=== PATIENT | female | born 1950 | race Caucasian/White ===

== ENCOUNTER 2016-11-28 | Outpatient (CLI) | payer MEDICARE, OTHER | END 2016-11-28 08:12 | disposition short-term general hospital (02) | DX: R04.0 Epistaxis (principal) | CPT/HCPCS: A0170; A0425; A0427 ==

== ENCOUNTER 2019-05-30 | Emergency (ER) | payer MEDICARE, OTHER | END 2019-05-30 13:46 | disposition home or self-care (01) | DX: S01.81XA Laceration without foreign body of other part of head, initial encounter (principal); W01.190A Fall on same level from slipping, tripping and stumbling with subsequent striking against furniture, initial encounter; R03.0 Elevated blood-pressure reading, without diagnosis of hypertension | CPT/HCPCS: 12011; 90471 ==

== ENCOUNTER 2019-05-30 10:58 | Outpatient (CLI) | payer MEDICARE, OTHER | END 2019-05-30 10:59 | disposition critical access hospital (66) | LOC: EMS 10:58 | PROVIDERS: ATTEND Surgery | DX: S01.81XA Laceration without foreign body of other part of head, initial encounter (principal); W01.0XXA Fall on same level from slipping, tripping and stumbling without subsequent striking against object, initial encounter; Y93.89 Activity, other specified; Y92.009 Unspecified place in unspecified non-institutional (private) residence as the place of occurrence of the external cause | CPT/HCPCS: A0425; A0429 ==

== ENCOUNTER 2020-10-30 21:17 | Outpatient (CLI) | payer MEDICARE | END 2020-10-30 23:59 | disposition EMS.NT | LOC: EMS 21:17 | PROVIDERS: ATTEND Surgery | DX: R53.1 Weakness (principal) ==

== ENCOUNTER 2020-10-31 | Outpatient (CLI) | payer MEDICARE, OTHER | END 2020-10-31 11:50 | disposition critical access hospital (66) | CPT/HCPCS: A0425; A0427 ==

== ENCOUNTER 2020-10-31 12:42 | Emergency (ER) | payer MEDICARE ==
[2020-10-31] MEDS ORDERED: SODIUM CHLORIDE 0.9% 2,000 ML IV STA (13:10)
[2020-10-31] MEDS ORDERED: SODIUM CHLORIDE 0.9% 1,000 ML IV STA (13:10)
[2020-10-31] MEDS ORDERED: ACETAMINOPHEN 325 MG TABLET PO STA (13:17)
--- NOTE | 2020-10-31 13:20 | ED Physician Documentation ---
History of Present Illness - Stated complaint Stated Complaint: FEVER - Chief complaint Chief Complaint: Resp - History obtained from History obtained from: Patient, EMS - History of Present Illness Timing: How many days ago (3) Pain level max: 0 Pain level now: 0 - Additonal information Additional information: Patient is a 70-year-old female who presents to the emergency department complaining of feeling generally unwell for the past 3 days. Developed fevers today. She has been feeling weak and dehydrated. Some nausea, no vomiting. Occasional diarrhea. No cough. Has had chills and body aches. She had an appointment to be Covid tested yesterday, but she was too weak to go. Today she called the ambulance to bring her in. Patient has a past medical history of hypertension and anxiety. T-max 101. No urinary symptoms. No recent travel. No recent antibiotics. Review of Systems Ten Systems: 10 systems reviewed and negative Constitutional: reports: Fever, Chills Nose: denies: Rhinorrhea / runny nose, Congestion Throat: denies: Sore throat Respiratory: denies: Dyspnea, Cough GI: reports: Nausea, Diarrhea (mild). denies: Abdominal Pain, Vomiting, Hematemesis, Bloody / black stool : denies: Dysuria, Frequency, Hesitancy Skin: denies: Rash Musculoskeletal: denies: Neck pain, Back pain Neurologic: reports: Generalized weakness. 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 10/31/20 - Allergies Allergies/Adverse Reactions: Allergies Allergy/AdvReac Type Severity Reaction Status Date / Time No Known Drug Allergies Allergy Verified 05/30/19 11:52 - Living Situation Living Arrangement: reports: At home - Social History Does the pt smoke?: No Smoking Status: Never smoker - POLST Patient has POLST: No PD ED PE NORMAL - Vitals Vital signs reviewed: Yes - General General: Alert and oriented X 3, No acute distress, Well developed/nourished - HEENT HEENT: PERRL, Ears normal, Moist mucous membranes, Pharynx benign - Neck Neck: Supple, no meningeal sign - Cardiac Cardiac: RRR, No murmur, Strong equal pulses - Respiratory Respiratory: No respiratory distress, Other (Tachypneic) - Abdomen Abdomen: Soft, Non tender, Non distended - Back Back: No CVA TTP - Derm Derm: Warm and dry, No rash - Extremities Extremities: No edema, No calf tenderness / cord - Neuro Neuro: Alert and oriented X 3 - Psych Psych: Normal mood, Normal affect Results - Vitals Vitals: Vital Signs - 24 hr 10/31/20 10/31/20 10/31/20 12:45 13:23 14:16 Temperature 37.8 C Heart Rate 107 H 106 H 102 H Respiratory 30 H 17 31 H Rate Blood Pressure 140/73 H 122/96 H 142/84 H O2 Saturation 97 95 95 10/31/20 10/31/20 14:47 16:05 Temperature 37.0 C 36.8 C Heart Rate 94 87 Respiratory 22 23 Rate Blood Pressure 146/67 H 120/75 O2 Saturation 94 95 Oxygen O2 Source Room air - Labs Labs: Laboratory Tests 10/31/20 10/31/20 10/31/20 13:05 13:35 14:00 WBC 5.1 RBC 4.69 Hgb 13.7 Hct 40.0 MCV 85.3 MCH 29.2 MCHC 34.3 RDW 13.9 Plt Count 129 L MPV 10.0 Neut # (Auto) 3.7 Lymph # (Auto) 0.9 L [place] # (Auto) 0.5 Eos # (Auto) 0.0 Baso # (Auto) 0.0 Absolute Nucleated RBC 0.00 Nucleated RBC % 0.0 PT INR APTT Sodium Potassium Chloride Carbon Dioxide Anion Gap BUN Creatinine Estimated GFR (MDRD) Glucose Lactic Acid Calcium Total Bilirubin AST ALT Alkaline Phosphatase Total Protein Albumin Globulin Albumin/Globulin Ratio Lipase Urine Color YELLOW Urine Clarity CLEAR Urine pH 7.0 Ur Specific [place] <=1.005 Urine Protein NEGATIVE Urine Glucose (UA) NEGATIVE Urine Ketones 15 H Urine Occult Blood SMALL H Urine Nitrite NEGATIVE Urine Bilirubin NEGATIVE Urine Urobilinogen 0.2 (NORMAL) Ur Leukocyte Esterase NEGATIVE Urine RBC 0-5 Urine WBC 0-3 Ur Squamous Epith Cells FEW Squamous Urine Bacteria Few Ur Microscopic Review INDICATED Urine Culture Comments NOT INDICATED Nasal Adenovirus (PCR) NOT DETECTED Nasal B. parapertussis DNA (PCR) NOT DETECTED Nasal Coronavir 229E PCR NOT DETECTED Nasal Coronavir HKU1 PCR NOT DETECTED Nasal Coronavir NL63 PCR NOT DETECTED Nasal Coronavir OC43 PCR NOT DETECTED Nasal Enterovir/Rhinovir PCR NOT DETECTED Nasal Influenza B PCR NOT DETECTED Nasal Influenza A PCR NOT DETECTED Nasal Parainfluen 1 PCR NOT DETECTED Nasal Parainfluen 2 PCR NOT DETECTED Nasal Parainfluen 3 PCR NOT DETECTED Nasal Parainfluen 4 PCR NOT DETECTED Nasal RSV (PCR) NOT DETECTED Nasal B.pertussis DNA PCR NOT DETECTED Nasal C.pneumoniae (PCR) NOT DETECTED Avery Human Metapneumo PCR NOT DETECTED Nasal M.pneumoniae (PCR) NOT DETECTED Nasal SARS-CoV-2 (PCR) NOT DETECTED 10/31/20 10/31/20 10/31/20 14:00 14:00 14:00 WBC RBC Hgb Hct MCV MCH MCHC RDW Plt Count MPV Neut # (Auto) Lymph # (Auto) [place] # (Auto) Eos # (Auto) Baso # (Auto) Absolute Nucleated RBC Nucleated RBC % PT 14.1 H INR 1.3 H APTT 22.0 L Sodium 134 L Potassium 2.8 L Chloride 96 L Carbon Dioxide 23 Anion Gap 15.0 H BUN 11 Creatinine 0.6 Estimated GFR (MDRD) 99 Glucose 102 H Lactic Acid 1.3 Calcium 8.0 L Total Bilirubin 0.7 AST 35 ALT 26 Alkaline Phosphatase 48 Total Protein 6.4 L Albumin 3.3 Globulin 3.1 Albumin/Globulin Ratio 1.1 Lipase 75 H Urine Color Urine Clarity Urine pH Ur Specific [place] Urine Protein Urine Glucose (UA) Urine Ketones Urine Occult Blood Urine Nitrite Urine Bilirubin Urine Urobilinogen Ur Leukocyte Esterase Urine RBC Urine WBC Ur Squamous Epith Cells Urine Bacteria Ur Microscopic Review Urine Culture Comments Nasal Adenovirus (PCR) Nasal B. parapertussis DNA (PCR) Nasal Coronavir 229E PCR Nasal Coronavir HKU1 PCR Nasal Coronavir NL63 PCR Nasal Coronavir OC43 PCR Nasal Enterovir/Rhinovir PCR Nasal Influenza B PCR Nasal Influenza A PCR Nasal Parainfluen 1 PCR Nasal Parainfluen 2 PCR Nasal Parainfluen 3 PCR Nasal Parainfluen 4 PCR Nasal RSV (PCR) Nasal B.pertussis DNA PCR Nasal C.pneumoniae (PCR) Avery Human Metapneumo PCR Nasal M.pneumoniae (PCR) Nasal SARS-CoV-2 (PCR) - Rads (name of study) Chest x-ray Radiology: Prelim report reviewed, EMP read contemporaneously, See rad report (Bilateral pneumonia) PD MEDICAL DECISION MAKING - ED course Complexity details: reviewed results, re-evaluated patient, considered differential, d/w patient ED course: Patient feels much better after IV fluids, IV antibiotics and potassium replacement. Tolerating p.o. without difficulty. Heart rate returned to normal. She has bilateral pneumonia on chest x-ray. Given Rocephin and azithromycin. Will place on cefdinir and doxycycline for home. Patient is well-appearing, nontoxic. Afebrile. No hypoxia. No respiratory distress. No evidence of sepsis. Covid negative. Patient counseled regarding signs and symptoms for which I believe and urgent re-evaluation would be necessary. Patient with good understanding of and agreement to plan and is comfortable going home at this time This document was made in part using voice recognition software. While efforts are made to proofread this document, sound alike and grammatical errors may occur. Departure - Departure Disposition: 01 Home, Self Care Clinical Impression: Dehydration, Hypokalemia Pneumonia Qualifiers: Pneumonia type: due to unspecified organism Laterality: bilateral Lung location: lower lobe of lung Qualified Code(s): J18.9 - Pneumonia, unspecified organism Condition: Good Instructions: ED Pneumonia Adult Follow-Up: your,doctor in 1 week [Other] Prescriptions: Cefdinir 300 mg PO BID #20 capsule Doxycycline Hyclate 100 mg PO BID #20 tablet. Comments: Take all antibiotics until gone. Follow-up with your doctor for further care. Return if you worsen. You should have your potassium rechecked next week with your doctor.
[2020-10-31 13:36] LABS: BILIRUBIN,URINE NEGATIVE (NEGATIVE); GLUCOSE, URINE (UA) NEGATIVE (NEGATIVE); KETONES,URINE (UA) 15 mg/dL (NEGATIVE); LEUKOCYTE ESTERASE, URINE NEGATIVE (NEGATIVE); NITRITE,URINE NEGATIVE (NEGATIVE); OCCULT BLOOD,URINE SMALL (NEGATIVE); PROTEIN,URINE NEGATIVE (NEGATIVE); UROBILINOGEN,URINE 0.2 (NORMAL) E.U./dL (NORMAL)
[2020-10-31 13:43] LABS: CLARITY,URINE CLEAR (CLEAR)
[2020-10-31 13:44] LABS: BACTERIA,URINE Few /HPF (None Seen); RBC,URINE 0-5 /HPF (0-5); SQUAMOUS EPITHELIAL CELL,UR FEW Squamous (<= Few)
--- NOTE | 2020-10-31 14:09 | XRAY Report ---
PROCEDURE: Chest 1 View X-Ray INDICATIONS: fever TECHNIQUE: One view of the chest was acquired. COMPARISON: None. FINDINGS: Surgical changes and devices: None. Lungs and pleura: Infiltrates in the right lower lung zone and left lower lung zone suspicious for pn eumonia. No pleural effusions or pneumothorax. Mediastinum: Mediastinal contours appear normal. Heart size is normal. Bones and chest wall: No suspicious bony lesions. Overlying soft tissues appear unremarkable. IMPRESSION: Bilateral lower lobe pneumonia, right greater than left. Reviewed by: Geneva Diaz MD on 10/31/2020 2:08 PM PST Approved by: Geneva Diaz MD on 10/31/2020 2:08 PM PST Station ID: [id number]
[2020-10-31 14:12] LABS: BASOPHILS % (AUTO) 0.2 %; HGB - HEMOGLOBIN 13.7 g/dL (12.0-16.0); LYMPHOCYTES # (AUTO) 0.9 10^3/uL (1.5-3.5); LYMPHOCYTES % (AUTO) 17.3 %; MEAN CORPUSCULAR HEMOGLOBIN 29.2 pg (27.0-31.0); MEAN CORPUSCULAR HGB CONC 34.3 g/dL (32.0-36.0); MEAN CORPUSCULAR VOLUME 85.3 fL (81.0-99.0); MONOCYTES # (AUTO) 0.5 10^3/uL (0.0-1.0); MONOCYTES % (AUTO) 10.2 %; NEUTROPHILS # (AUTO) 3.7 10^3/uL (1.5-6.6); NEUTROPHILS % (AUTO) 71.9 %; PLT - PLATELET COUNT 129 10^3/uL (130-450); RED BLOOD COUNT 4.69 10^6/uL (4.20-5.40); RED CELL DISTRIBUTION WIDTH 13.9 % (12.0-15.0); WHITE BLOOD COUNT 5.1 x10^3/uL (4.8-10.8)
[2020-10-31 14:16] LABS: INR 1.3 (0.8-1.2); PT - PROTHROMBIN TIME 14.1 secs (9.9-12.6)
[2020-10-31 14:24] LABS: ALBUMIN 3.3 g/dL (3.2-5.5); ALBUMIN/GLOBULIN RATIO 1.1 (1.0-2.2); BILIRUBIN,TOTAL 0.7 mg/dL (0.2-1.0); CREATININE 0.6 mg/dL (0.4-1.0); TOTAL PROTEIN 6.4 g/dL (6.7-8.2)
[2020-10-31 14:34] LABS: C. PNEUMONIAE- RESP PCR PANEL NOT DETECTED
[2020-10-31] MEDS ORDERED: cefTRIAXone 1 GM VIAL IVP STA (14:41)
[2020-10-31] MEDS ORDERED: AZITHROMYCIN INJ 500 MG in SODIUM CHLORIDE 0.9% 250 ML IV STA (14:42)
[2020-10-31] MEDS ORDERED: POTASSIUM CHLORIDE 20 MEQ TABLET PO STA (14:53)
[2020-10-31 16:46] VITALS: BP 132/74
== END 2020-10-31 18:00 | disposition home or self-care (01) ==
LOC: EDUNIT# → ED 12:42
DX: J18.9 Pneumonia, unspecified organism (principal); E86.0 Dehydration; E87.6 Hypokalemia; I10 Essential (primary) hypertension; Z20.828 Contact with and (suspected) exposure to other viral communicable diseases
CPT/HCPCS: 71045; 80053; 81001; 83605; 83690; 85025; 85610; 85730; 87040; 87631; 96365; 96375; 99284; A9270; 0202U; 81003; 87086

== ENCOUNTER 2020-11-13 09:34 | Outpatient (CLI) | payer MEDICARE | END 2020-11-13 09:35 | disposition critical access hospital (66) | LOC: EMS 09:34 | PROVIDERS: ATTEND Surgery | DX: R06.02 Shortness of breath (principal) | CPT/HCPCS: A0425; A0427 ==

== ENCOUNTER 2020-11-13 10:22 | Emergency (ER) | payer MEDICARE ==
[2020-11-13] MEDS ORDERED: SODIUM CHLORIDE 0.9% 1,000 ML IV STA (11:06)
[2020-11-13] MEDS ORDERED: ALBUTEROL 1 PUFF INH STA (11:06)
--- NOTE | 2020-11-13 11:10 | ED Physician Documentation ---
History of Present Illness - Stated complaint Stated Complaint: SOA - Chief complaint Chief Complaint: Resp - History obtained from History obtained from: Patient - History of Present Illness Timing: Today Pain level max: 0 Pain level now: 0 - Additonal information Additional information: 70-year-old female recently diagnosed with pneumonia. Has taken all of her antibiotics and is feeling better, but started having more difficulty breathing over the past few days. She states that her tested positive for Covid and is currently in the ICU. She states with exertion, her pulse oximeter drops to 85-88 on room air. She states she has 97 to 99% if she is in bed. No fevers. Cough is mostly resolved. 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 - Present Medications Home Medications: Ambulatory Orders Medication Instructions Recorded Confirmed HYDROcod/ACETAM 5/325 [[place] 5/325] 1 - 2 ea PO Q6H PRN #15 tablet 09/02/16 11/13/20 Knee Scooter 1 unit TD ONCE #1 09/02/16 11/13/20 Albuterol Sulf [Ventolin Hfa 1 - 2 puffs INH Q4HR PRN #1 inhaler 11/13/20 Inhaler] levoFLOXacin [Levaquin] 750 mg PO DAILY #12 tablet 11/13/20 - Allergies Allergies/Adverse Reactions: Allergies Allergy/AdvReac Type Severity Reaction Status Date / Time No Known Drug Allergies Allergy Verified 05/30/19 11:52 - Social History Does the pt smoke?: No Smoking Status: Never smoker Does the pt drink ETOH?: Yes Does the pt have substance abuse?: No - Immunizations Immunizations are current?: Yes - POLST Patient has POLST: No PD ED PE NORMAL - Vitals Vital signs reviewed: Yes - General General: Alert and oriented X 3, No acute distress, Well developed/nourished - HEENT HEENT: Moist mucous membranes - Neck Neck: Supple, no meningeal sign - Cardiac Cardiac: RRR - Respiratory Respiratory: No respiratory distress, Other (Mild diminished breath sounds bilaterally. Mild wheezing.) - Abdomen Abdomen: Soft, Non tender, Non distended - Back Back: No CVA TTP, No spinal TTP - Derm Derm: Warm and dry, No rash - Extremities Extremities: No edema - Neuro Neuro: Alert and oriented X 3, proofreader 2-12 intact, No motor deficit, No sensory deficit, Normal speech - Psych Psych: Normal mood, Normal affect Results - Vitals Vitals: Vital Signs - 24 hr 11/13/20 11/13/20 11/13/20 10:32 11:02 11:35 Temperature 36.9 C 36.7 C Heart Rate 112 H 110 H 108 H Respiratory 23 39 H 16 Rate Blood Pressure 129/62 138/63 H O2 Saturation 94 95 11/13/20 11/13/20 12:08 13:37 Temperature 36.8 C Heart Rate 105 H 90 Respiratory 18 18 Rate Blood Pressure 139/66 H 133/83 H O2 Saturation 94 94 Oxygen O2 Source Room air - Labs Labs: Laboratory Tests 11/13/20 11/13/20 11/13/20 10:40 10:40 10:40 WBC 12.2 H RBC 4.68 Hgb 13.3 Hct 40.4 MCV 86.3 MCH 28.4 MCHC 32.9 RDW 14.2 Plt Count 56 L MPV 11.0 H Neut # (Auto) 9.1 H Lymph # (Auto) 1.5 [place] # (Auto) 1.5 H Eos # (Auto) 0.0 Baso # (Auto) 0.1 Absolute Nucleated RBC 0.00 Nucleated RBC % 0.0 Sodium 138 Potassium 3.4 L Chloride 99 L Carbon Dioxide 28 Anion Gap 11.0 BUN 10 Creatinine 0.6 Estimated GFR (MDRD) 99 Glucose 111 H Calcium 8.4 L Total Bilirubin 0.8 AST 24 ALT 27 Alkaline Phosphatase 51 Total Protein 6.5 L Albumin 2.8 L Globulin 3.7 Albumin/Globulin Ratio 0.8 L Nasal Adenovirus (PCR) NOT DETECTED Nasal B. parapertussis DNA (PCR) NOT DETECTED Nasal Coronavir 229E PCR NOT DETECTED Nasal Coronavir HKU1 PCR NOT DETECTED Nasal Coronavir NL63 PCR NOT DETECTED Nasal Coronavir OC43 PCR NOT DETECTED Nasal Enterovir/Rhinovir PCR NOT DETECTED Nasal Influenza B PCR NOT DETECTED Nasal Influenza A PCR NOT DETECTED Nasal Parainfluen 1 PCR NOT DETECTED Nasal Parainfluen 2 PCR NOT DETECTED Nasal Parainfluen 3 PCR NOT DETECTED Nasal Parainfluen 4 PCR NOT DETECTED Nasal RSV (PCR) NOT DETECTED Nasal B.pertussis DNA PCR NOT DETECTED Nasal C.pneumoniae (PCR) NOT DETECTED Avery Human Metapneumo PCR NOT DETECTED Nasal M.pneumoniae (PCR) NOT DETECTED Nasal SARS-CoV-2 (PCR) NOT DETECTED - Rads (name of study) Chest x-ray Radiology: Prelim report reviewed, EMP read contemporaneously, See rad report (Slight improvement in right greater left basilar airspace opacities. ) PD MEDICAL DECISION MAKING - ED course Complexity details: reviewed results, re-evaluated patient, considered differential, d/w patient ED course: Patient with persistent pneumonia. Negative Covid testing. We will change her to Levaquin. Had been on cefdinir and doxycycline together. Discussed risks and benefits of fluoroquinolones. Patient accepts these risks. Patient is well-appearing, nontoxic. Afebrile. No hypoxia. No respiratory distress. Feels better with albuterol use as well. We will prescribe this for home. Patient counseled regarding signs and symptoms for which I believe and urgent re-evaluation would be necessary. Patient with good understanding of and agreement to plan and is comfortable going home at this time This document was made in part using voice recognition software. While efforts are made to proofread this document, sound alike and grammatical errors may occur. Departure - Departure Disposition: 01 Home, Self Care Clinical Impression: Pneumonia Qualifiers: Pneumonia type: due to unspecified organism Laterality: bilateral Lung location: lower lobe of lung Qualified Code(s): J18.9 - Pneumonia, unspecified organism Condition: Good Instructions: ED Pneumonia Adult Follow-Up: your,doctor in 1 week [Other] Prescriptions: Albuterol Sulf [Ventolin Hfa Inhaler] 1 - 2 puffs INH Q4HR PRN #1 inhaler PRN Reason: Shortness Of Air/Wheezing levoFLOXacin [Levaquin] 750 mg PO DAILY #12 tablet Comments: You were given the first dose of Levaquin today. Start the remaining doses tomorrow. You will take for a total of 5 days. Return if you worsen. Discharge Date/Time: 11/13/20 13:58
[2020-11-13 11:14] LABS: BASOPHILS # (AUTO) 0.1 10^3/uL (0.0-0.1); BASOPHILS % (AUTO) 0.4 %; EOSINOPHILS % (AUTO) 0.3 %; HGB - HEMOGLOBIN 13.3 g/dL (12.0-16.0); LYMPHOCYTES # (AUTO) 1.5 10^3/uL (1.5-3.5); LYMPHOCYTES % (AUTO) 12.3 %; MEAN CORPUSCULAR HEMOGLOBIN 28.4 pg (27.0-31.0); MEAN CORPUSCULAR HGB CONC 32.9 g/dL (32.0-36.0); MEAN CORPUSCULAR VOLUME 86.3 fL (81.0-99.0); MONOCYTES # (AUTO) 1.5 10^3/uL (0.0-1.0); MONOCYTES % (AUTO) 11.8 %; NEUTROPHILS # (AUTO) 9.1 10^3/uL (1.5-6.6); NEUTROPHILS % (AUTO) 74.8 %; PLT - PLATELET COUNT 56 10^3/uL (130-450); RED BLOOD COUNT 4.68 10^6/uL (4.20-5.40); RED CELL DISTRIBUTION WIDTH 14.2 % (12.0-15.0); WHITE BLOOD COUNT 12.2 x10^3/uL (4.8-10.8)
[2020-11-13 11:23] LABS: ALBUMIN 2.8 g/dL (3.2-5.5); ALBUMIN/GLOBULIN RATIO 0.8 (1.0-2.2); BILIRUBIN,TOTAL 0.8 mg/dL (0.2-1.0); CALCIUM 8.4 mg/dL (8.5-10.3); CREATININE 0.6 mg/dL (0.4-1.0); TOTAL PROTEIN 6.5 g/dL (6.7-8.2)
[2020-11-13 12:00] LABS: C. PNEUMONIAE- RESP PCR PANEL NOT DETECTED
--- NOTE | 2020-11-13 12:46 | XRAY Report ---
PROCEDURE: Chest 1 View X-Ray INDICATIONS: Cough, recent pneumonia TECHNIQUE: One view of the chest was acquired. COMPARISON: 10/31/2020 FINDINGS: Surgical changes and devices: None. Lungs and pleura: Slightly improved mixed groundglass and consolidative airspace opacities in the rig ht greater than left lung bases. No visible pleural effusion. No pneumothorax. Mediastinum: Mediastinal contours appear normal. Heart size is normal. Bones and chest wall: No suspicious bony lesions. Overlying soft tissues appear unremarkable. IMPRESSION: Slight improvement in right greater left basilar airspace opacities. Reviewed by: Moses Nazario MD on 11/13/2020 12:45 PM PST Approved by: Moses Nazario MD on 11/13/2020 12:45 PM PST Station ID: [id number]
[2020-11-13] MEDS ORDERED: levoFLOXacin 250 MG TABLET PO STA (12:50)
[2020-11-13 13:38] VITALS: BP 133/83
== END 2020-11-13 13:58 | disposition home or self-care (01) ==
LOC: EDUNIT# → ED 10:22
DX: J18.9 Pneumonia, unspecified organism (principal); Z20.822 Contact with and (suspected) exposure to COVID-19; I10 Essential (primary) hypertension
CPT/HCPCS: 36415; 71045; 80053; 85025; 87631; 94640; 94664; 99284; A9270; 0202U

== ENCOUNTER 2020-12-09 08:00 | Outpatient (CLI) | payer MEDICARE, OTHER ==
--- NOTE | 2020-12-09 16:58 | XRAY Report ---
PROCEDURE: Ankle 3 View LT INDICATIONS: ANKLE PAIN, LEFT TECHNIQUE: 3 views of the ankle were acquired. COMPARISON: 09/02/2016 plain film examination FINDINGS: Bones: No fractures or dislocations. Ankle mortise is normally aligned. No suspicious bony lesions . ORIF of the distal tibia and fibula. Soft tissues: No tibiotalar joint effusion. Achilles tendon appears normal. IMPRESSION: Post surgical sequelae. No acute fracture. No osseous lesion. If symptoms and/or clinica l suspicion for pathology continue, further assessment with repeat plain films, or advanced imaging ( e.g., CT or bone scan) is recommended for further assessment. Reviewed by: Nelia Boss MD on 12/09/2020 4:57 PM PST Approved by: Nelia Boss MD on 12/09/2020 4:57 PM PST Station ID: [id number]
--- NOTE | 2020-12-09 16:59 | XRAY Report ---
PROCEDURE: Foot 3 View LT INDICATIONS: LEFT FOOT PAIN TECHNIQUE: 3 views of the foot were acquired. COMPARISON: 09/02/2016 plain film. FINDINGS: Bones: No fractures or dislocations. No suspicious bony lesions. ORIF of the medial and lateral ma lleoli. Soft tissues: No tibiotalar joint effusion. Achilles tendon appears normal. IMPRESSION: Postsurgical sequelae. No acute fracture. No osseous lesion. If symptoms and/or clinical suspicion fo r pathology continue, further assessment with repeat plain films, or advanced imaging (e.g., CT, MRI, or bone scan) is recommended for further assessment. Reviewed by: Nelia Boss MD on 12/09/2020 4:57 PM PST Approved by: Nelia Boss MD on 12/09/2020 4:57 PM PST Station ID: [id number]
== END 2020-12-09 23:59 | disposition home or self-care (01) ==
LOC: DI.S 08:00
PROVIDERS: ATTEND Physician Assistant
DX: M25.572 Pain in left ankle and joints of left foot (principal); M79.672 Pain in left foot

== ENCOUNTER 2020-12-09 17:36 | Emergency (ER) | payer MEDICARE, OTHER ==
[2020-12-09] MEDS ORDERED: AMPICILLIN/SULBACTAM 3 GM in SODIUM CHLORIDE 0.9% MINIBAG 100 ML IV STA (18:47)
[2020-12-09] MEDS ORDERED: VANCOMYCIN INJ 1 GM in SODIUM CHLORIDE 0.9% 500 ML IV STA (18:47)
[2020-12-09] MEDS ORDERED: VANCOMYCIN INJ 1.75 GM in SODIUM CHLORIDE 0.9% 500 ML IV STA (18:55)
[2020-12-09 19:00] LABS: BASOPHILS # (AUTO) 0.1 10^3/uL (0.0-0.1); EOSINOPHILS # (AUTO) 0.3 10^3/uL (0.0-0.7); EOSINOPHILS % (AUTO) 3.6 %; HGB - HEMOGLOBIN 14.1 g/dL (12.0-16.0); LYMPHOCYTES # (AUTO) 2.4 10^3/uL (1.5-3.5); LYMPHOCYTES % (AUTO) 32.7 %; MEAN CORPUSCULAR HEMOGLOBIN 28.3 pg (27.0-31.0); MEAN CORPUSCULAR HGB CONC 31.2 g/dL (32.0-36.0); MEAN CORPUSCULAR VOLUME 90.6 fL (81.0-99.0); MEAN PLATELET VOLUME 9.3 fL (7.9-10.8); MONOCYTES % (AUTO) 13.4 %; NEUTROPHILS # (AUTO) 3.6 10^3/uL (1.5-6.6); NEUTROPHILS % (AUTO) 49.2 %; PLT - PLATELET COUNT 203 10^3/uL (130-450); RED BLOOD COUNT 4.99 10^6/uL (4.20-5.40); RED CELL DISTRIBUTION WIDTH 15.4 % (12.0-15.0); WHITE BLOOD COUNT 7.3 x10^3/uL (4.8-10.8)
[2020-12-09 19:18] LABS: ALBUMIN/GLOBULIN RATIO 1.1 (1.0-2.2); ALKALINE PHOSPHATASE 68 IU/L (42-121); ALT ALANINE AMINOTRANSFERASE 27 IU/L (10-60); AST ASPARTATE AMINOTRANSFERASE 31 IU/L (10-42); BILIRUBIN,TOTAL 0.6 mg/dL (0.2-1.0); BUN - BLOOD UREA NITROGEN 9 mg/dL (6-20); CARBON DIOXIDE - CO2 28 mmol/L (21-32); CHLORIDE 103 mmol/L (101-111); CREATININE 0.6 mg/dL (0.4-1.0); GLUCOSE 98 mg/dL (70-100); TOTAL PROTEIN 7.5 g/dL (6.7-8.2)
[2020-12-09 19:19] LABS: CRP - C-REACTIVE PROTEIN < 1.0 mg/dL (0-1.0)
--- NOTE | 2020-12-09 19:36 | Ultrasound Report ---
PROCEDURE: Duplex Ext Veins Left INDICATIONS: LLE swelling TECHNIQUE: Real-time imaging, as well as color and pulse Doppler interrogation, were performed of the lower extr emity deep veins from the inguinal ligament to the popliteal fossa. COMPARISON: None. FINDINGS: Extensive venous thrombosis seen extending from distal left common femoral vein, left superficial fem oral vein to left popliteal vein with intraluminal filling defects and reduced flow. Significant lowe r leg edema is seen. IMPRESSION: Extensive nonocclusive venous thrombosis throughout visualized left lower extremity vein s as above. Significant lower leg edema. Reviewed by: Vernon Rose MD on 12/09/2020 7:34 PM PST Approved by: Vernon Rose MD on 12/09/2020 7:34 PM PST Station ID: [id number]
[2020-12-09] MEDS ORDERED: RIVAROXABAN 15 MG TABLET PO STA (19:57)
--- NOTE | 2020-12-09 19:59 | ED Physician Documentation ---
History of Present Illness - Stated complaint Stated Complaint: LEFT LEG PX - Chief complaint Chief Complaint: Ext Problem - History obtained from History obtained from: Patient - History of Present Illness Timing: Today Pain level max: 6 Pain level now: 4 - Additonal information Additional information: Patient has had left lower extremity swelling for the past several days. Worse with movement, better with rest. She recently has been treated for pneumonia. Seen at the walk-in clinic today and sent here for ultrasound for possible DVT. Patient has had relative immobilization due to her multiple episodes of pneumonia and possible Covid. Has a history of a fracture to the left ankle with hardware in place as well. 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 - Present Medications Home Medications: Ambulatory Orders Medication Instructions Recorded Confirmed HYDROcod/ACETAM 5/325 [[place] 5/325] 1 - 2 ea PO Q6H PRN #15 tablet 09/02/16 11/13/20 Knee Scooter 1 unit TD ONCE #1 09/02/16 11/13/20 Albuterol Sulf [Ventolin Hfa 1 - 2 puffs INH Q4HR PRN #1 inhaler 11/13/20 Inhaler] levoFLOXacin [Levaquin] 750 mg PO DAILY #12 tablet 11/13/20 Rivaroxaban [Xarelto] 15 mg PO BID #42 12/09/20 Sulfamethox/Trimeth 800/160 1 each PO BID #20 tab 12/09/20 [Bactrim Ds 800/160] cephALEXin [Keflex] 500 mg PO Q6H #40 cap 12/09/20 - Allergies Allergies/Adverse Reactions: Allergies Allergy/AdvReac Type Severity Reaction Status Date / Time No Known Drug Allergies Allergy Verified 12/09/20 17:42 - Social History Does the pt smoke?: No Smoking Status: Never smoker Does the pt drink ETOH?: Yes Does the pt have substance abuse?: No - Immunizations Immunizations are current?: Yes - POLST Patient has POLST: No PD ED PE NORMAL - Vitals Vital signs reviewed: Yes - General General: Alert and oriented X 3, No acute distress - HEENT HEENT: Moist mucous membranes - Neck Neck: Supple, no meningeal sign - Cardiac Cardiac: RRR - Respiratory Respiratory: No respiratory distress, Clear bilaterally - Abdomen Abdomen: Soft, Non tender, Non distended - Derm Derm: Warm and dry - Extremities Extremities: Other (Remedy with erythema, warmth, tenderness from the mid lora down to the ankle. This is nearly circumferential. Moderate swelling. Neurovascularly intact.) - Neuro Neuro: Alert and oriented X 3 Results - Vitals Vitals: Vital Signs - 24 hr 12/09/20 12/09/20 12/09/20 17:42 19:41 20:32 Temperature 37.1 C 36.9 C 36.2 C L Heart Rate 98 75 85 Respiratory 18 15 16 Rate Blood Pressure 157/75 H 136/74 H 152/75 H O2 Saturation 97 98 97 Oxygen O2 Source Room air - Labs Labs: Laboratory Tests 12/09/20 12/09/20 12/09/20 18:54 18:54 18:54 WBC 7.3 RBC 4.99 Hgb 14.1 Hct 45.2 MCV 90.6 MCH 28.3 MCHC 31.2 L RDW 15.4 H Plt Count 203 MPV 9.3 Neut # (Auto) 3.6 Lymph # (Auto) 2.4 [place] # (Auto) 1.0 Eos # (Auto) 0.3 Baso # (Auto) 0.1 Absolute Nucleated RBC 0.00 Nucleated RBC % 0.0 ESR 8 Sodium 142 Potassium 3.8 Chloride 103 Carbon Dioxide 28 Anion Gap 11.0 BUN 9 Creatinine 0.6 Estimated GFR (MDRD) 99 Glucose 98 Calcium 9.0 Total Bilirubin 0.6 AST 31 ALT 27 Alkaline Phosphatase 68 C-Reactive Protein < 1.0 Total Protein 7.5 Albumin 4.0 Globulin 3.5 Albumin/Globulin Ratio 1.1 - Rads (name of study) duplex US LLE Radiology: Prelim report reviewed, EMP read contemporaneously, See rad report PD MEDICAL DECISION MAKING - ED course Complexity details: reviewed results, re-evaluated patient, considered differential, d/w patient ED course: X-rays were performed at the walk-in clinic prior to arrival. These do not show any acute abnormalities. Does have significant hardware in place. Duplex ultrasound here reveals an extensive left lower extremity DVT, nonocclusive. Discussed the risks and benefits of various anticoagulants including warfarin and Xarelto with the patient. She elects to take Xarelto. No evidence of PE. Given the significant hardware in her ankle, we will also place her on antibiotics for possible cellulitis. Patient is well-appearing, nontoxic. Afebrile. Patient counseled regarding signs and symptoms for which I believe and urgent re-evaluation would be necessary. Patient with good understanding of and agreement to plan and is comfortable going home at this time This document was made in part using voice recognition software. While efforts are made to proofread this document, sound alike and grammatical errors may occur. IMPRESSION: Extensive nonocclusive venous thrombosis throughout visualized left lower extremity veins as above. Significant lower leg edema. Departure - Departure Disposition: 01 Home, Self Care Clinical Impression: Cellulitis Qualifiers: Site of cellulitis: extremity Site of cellulitis of extremity: lower extremity Laterality: left Qualified Code(s): L03.116 - Cellulitis of left lower limb DVT (deep venous thrombosis) Qualifiers: DVT location: lower extremity Affected thrombotic vein of extremity: unspecified vein of extremity Chronicity: acute Laterality: left Qualified Code(s): I82.402 - Acute embolism and thrombosis of unspecified deep veins of left lower extremity Condition: Good Instructions: ED Infec Skin Cellulitis, ED DVT Follow-Up: Ilsa Tavares ARNP [Primary Care Provider] - Within 1 week Prescriptions: Sulfamethox/Trimeth 800/160 [Bactrim Ds 800/160] 1 each PO BID #20 tab cephALEXin [Keflex] 500 mg PO Q6H #40 cap Rivaroxaban [Xarelto] 15 mg PO BID #42 Comments: Take all antibiotics until gone. Return if you worsen. You do have a DVT in your left lower extremity. You need to stay on Xarelto. For the first 21 days, you will be on 15 mg by mouth twice daily. After that your doctor will transition you to 20 mg daily for the duration of treatment. You should have a repeat ultrasound as well to check on the progression of the DVT. Notify your doctor or return to the emergency department for any bleeding. If you fall and strike your head, you need to be seen right away in the emergency department. Discharge Date/Time: 12/09/20 20:33
[2020-12-09 20:34] VITALS: BP 152/75
== END 2020-12-09 20:33 | disposition home or self-care (01) ==
LOC: ED 17:36
DX: I82.412 Acute embolism and thrombosis of left femoral vein (principal); I82.432 Acute embolism and thrombosis of left popliteal vein; L03.116 Cellulitis of left lower limb; I10 Essential (primary) hypertension; M79.672 Pain in left foot; M25.572 Pain in left ankle and joints of left foot
CPT/HCPCS: 36415; 73610; 73630; 80053; 85025; 85651; 86140; 93971; 96365; 99284; A9270; J3370

== ENCOUNTER 2020-12-10 11:47 | Outpatient (CLI) | payer MEDICARE, OTHER ==
[2020-12-10 16:59] LABS: BUN - BLOOD UREA NITROGEN 8 mg/dL (6-20); CALCIUM 8.8 mg/dL (8.5-10.3); CARBON DIOXIDE - CO2 25 mmol/L (21-32); CHLORIDE 104 mmol/L (101-111); CHOL/HDL RATIO 3.7 (<4.4); CHOLESTEROL 157 mg/dL; CREATININE 0.6 mg/dL (0.4-1.0); GLUCOSE 94 mg/dL (70-100); HDL CHOLESTEROL 42 mg/dL; LDL CHOLESTEROL,CALCULATED 91 mg/dL; LDL/HDL RATIO 2.2 (<4.4); VLDL CHOLESTEROL 24 mg/dL
[2020-12-10 20:11] LABS: HEMOGLOBIN A1c% 5.4 % (4.27-6.07)
== END 2020-12-10 11:48 | disposition home or self-care (01) ==
LOC: LAB.S 11:47
PROVIDERS: ATTEND Nurse Practitioner
DX: Z01.84 Encounter for antibody response examination (principal); J98.8 Other specified respiratory disorders; B97.89 Other viral agents as the cause of diseases classified elsewhere; Z87.01 Personal history of pneumonia (recurrent); I10 Essential (primary) hypertension; F33.42 Major depressive disorder, recurrent, in full remission; Z83.3 Family history of diabetes mellitus; E87.6 Hypokalemia; E86.0 Dehydration
CPT/HCPCS: 36415; 80048; 80061; 83036; 83721; 84443; 86769

== ENCOUNTER 2021-06-08 08:00 | Outpatient (CLI) | payer MEDICARE, OTHER ==
[2021-06-08 20:06] LABS: BASOPHILS # (AUTO) 0.1 10^3/uL (0.0-0.1); BASOPHILS % (AUTO) 0.7 %; EOSINOPHILS # (AUTO) 0.4 10^3/uL (0.0-0.7); HGB - HEMOGLOBIN 13.8 g/dL (12.0-16.0); LYMPHOCYTES # (AUTO) 2.3 10^3/uL (1.5-3.5); MEAN CORPUSCULAR HEMOGLOBIN 28.2 pg (27.0-31.0); MEAN CORPUSCULAR HGB CONC 31.4 g/dL (32.0-36.0); MEAN CORPUSCULAR VOLUME 89.8 fL (81.0-99.0); MEAN PLATELET VOLUME 11.4 fL (7.9-10.8); MONOCYTES # (AUTO) 0.9 10^3/uL (0.0-1.0); NEUTROPHILS # (AUTO) 3.6 10^3/uL (1.5-6.6); PLT - PLATELET COUNT 169 10^3/uL (130-450); RED CELL DISTRIBUTION WIDTH 15.2 % (12.0-15.0); WHITE BLOOD COUNT 7.3 x10^3/uL (4.8-10.8)
== END 2021-06-08 23:59 | disposition home or self-care (01) ==
LOC: LAB.S 08:00
PROVIDERS: ATTEND Emergency Medicine
DX: L29.9 Pruritus, unspecified (principal); T45.515A Adverse effect of anticoagulants, initial encounter
CPT/HCPCS: 36415; 85025; 85610; 86140

== ENCOUNTER 2021-06-11 17:12 | Outpatient (CLI) | payer MEDICARE, OTHER | END 2021-06-11 17:13 | disposition home or self-care (01) | LOC: COV 17:12 | PROVIDERS: ATTEND Family Medicine | DX: R53.83 Other fatigue (principal); R21 Rash and other nonspecific skin eruption; Z20.822 Contact with and (suspected) exposure to COVID-19 ==

== ENCOUNTER 2023-01-26 10:41 | Outpatient (CLI) | payer MEDICARE, OTHER ==
[2023-01-26 14:24] LABS: BASOPHILS # (AUTO) 0.1 10^3/uL (0.0-0.1); BASOPHILS % (AUTO) 0.8 %; EOSINOPHILS # (AUTO) 0.2 10^3/uL (0.0-0.7); EOSINOPHILS % (AUTO) 2.2 %; HCT - HEMATOCRIT 45.6 % (37.0-47.0); HGB - HEMOGLOBIN 14.2 g/dL (12.0-16.0); LYMPHOCYTES # (AUTO) 2.2 10^3/uL (1.5-3.5); LYMPHOCYTES % (AUTO) 27.9 %; MEAN CORPUSCULAR HEMOGLOBIN 28.1 pg (27.0-31.0); MEAN CORPUSCULAR HGB CONC 31.1 g/dL (32.0-36.0); MEAN CORPUSCULAR VOLUME 90.3 fL (81.0-99.0); MEAN PLATELET VOLUME 10.8 fL (7.9-10.8); MONOCYTES # (AUTO) 0.8 10^3/uL (0.0-1.0); MONOCYTES % (AUTO) 10.2 %; NEUTROPHILS # (AUTO) 4.6 10^3/uL (1.5-6.6); NEUTROPHILS % (AUTO) 58.6 %; PLT - PLATELET COUNT 195 10^3/uL (130-450); RED BLOOD COUNT 5.05 10^6/uL (4.20-5.40); RED CELL DISTRIBUTION WIDTH 14.6 % (12.0-15.0); WHITE BLOOD COUNT 7.8 x10^3/uL (4.8-10.8)
[2023-01-26 14:53] LABS: ESTIMATED AVERAGE GLUCOSE 123 mg/dL (70-100); HEMOGLOBIN A1c% 5.9 % (4.27-6.07); THYROID STIMULATING HORMONE 2.44 uIU/mL (0.34-5.60)
[2023-01-26 14:59] LABS: ALBUMIN 3.9 g/dL (3.2-5.5); ALBUMIN/GLOBULIN RATIO 1.3 (1.0-2.2); ALKALINE PHOSPHATASE 101 IU/L (42-121); ALT ALANINE AMINOTRANSFERASE 30 IU/L (10-60); AST ASPARTATE AMINOTRANSFERASE 27 IU/L (10-42); BILIRUBIN,TOTAL 0.3 mg/dL (0.2-1.0); BUN - BLOOD UREA NITROGEN 11 mg/dL (6-20); CALCIUM 8.5 mg/dL (8.5-10.3); CARBON DIOXIDE - CO2 29 mmol/L (21-32); CHLORIDE 107 mmol/L (101-111); CHOL/HDL RATIO 4.2 (<4.4); CHOLESTEROL 156 mg/dL; CREATININE 0.5 mg/dL (0.4-1.0); GFR - MDRD 122 (>89); GLUCOSE 102 mg/dL (70-100); HDL CHOLESTEROL 37 mg/dL; LDL CHOLESTEROL,CALCULATED 86 mg/dL; LDL/HDL RATIO 2.3 (<4.4); POTASSIUM 4.3 mmol/L (3.5-5.0); SODIUM 140 mmol/L (135-145); TRIGLYCERIDES 166 mg/dL; VLDL CHOLESTEROL 33 mg/dL
== END 2023-01-26 10:42 | disposition home or self-care (01) ==
LOC: LAB.S 10:41
PROVIDERS: ATTEND Nurse Practitioner
DX: Z00.00 Encounter for general adult medical examination without abnormal findings (principal)
CPT/HCPCS: 36415; 80053; 80061; 83036; 83721; 84443; 85025

== ENCOUNTER 2023-10-16 10:43 | Outpatient (CLI) | payer MEDICARE, OTHER | END 2023-10-16 10:44 | disposition critical access hospital (66) | LOC: EMS 10:43 | DX: M25.572 Pain in left ankle and joints of left foot (principal); W10.8XXA Fall (on) (from) other stairs and steps, initial encounter; Y92.008 Other place in unspecified non-institutional (private) residence as the place of occurrence of the external cause | CPT/HCPCS: A0425; A0429 ==

== ENCOUNTER 2023-10-16 11:32 | Emergency (ER) | payer MEDICARE, OTHER ==
[2023-10-16] MEDS ORDERED: KETOROLAC 30 MG/ML VIAL IM STA (11:53)
--- NOTE | 2023-10-16 12:47 | XRAY Report ---
PROCEDURE: Tib/Fib LT INDICATIONS: fell down steps, lower leg pain TECHNIQUE: 2 views of the tibia and fibula were acquired. COMPARISON: None. FINDINGS: Bones: Acute nondisplaced, slightly impacted proximal fibular metaphyseal fracture. Distal fibular d eformity of prior healed fracture and hardware fixation. Distal tibial hardware. Bone alignment is no rmal. Soft tissues: No suspicious soft tissue calcifications or masses. IMPRESSION: Acute proximal fibular metaphyseal fracture. Reviewed by: Barbara Hall MD on 10/16/2023 12:46 PM PST Approved by: Barbara Hall MD on 10/16/2023 12:46 PM PST Station ID: [id number]
[2023-10-16] MEDS ORDERED: methocarbamoL 500 MG TABLET PO STA (13:29)
[2023-10-16] MEDS ORDERED: ACETAMINOPHEN 325 MG TABLET PO STA (13:29)
[2023-10-16] MEDS ORDERED: HYDROmorphone 1 MG/ML CARPUJECT IM STA (13:29)
[2023-10-16 13:46] VITALS: BP 159/93; O2SAT 98
--- NOTE | 2023-10-16 14:17 | ED Physician Documentation ---
PD HPI LOWER EXT INJURY - Stated complaint Stated Complaint: LEG PX - Chief complaint Chief Complaint: Trauma Ext - History obtained from History obtained from: Patient - History of Present Illness PD HPI LOW EXT INJURY LOCATION: Left, Lower leg, Ankle Type of injury: Fall, Twist (she slipped walking down steps to basement for laundry and bumped onto her buttock down 3 steps, with left lower leg twisted under herself. Pain lateral ankle up to knee area.) Where injury occurred: Home Timing - onset: Today Timing - details: Abrupt onset, Still present Worsened by: Palpating, Other (rotating lower leg and attempting to stand.) Associated symptoms: No: Weakness, Numbness, Swelling Similar symptoms before: Other (had ankle fracture with surgical repair years ago. 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 - Present Medications Home Medications: Ambulatory Orders Medication Instructions Recorded Confirmed Knee Scooter 1 unit TD ONCE #1 09/02/16 10/16/23 HYDROcod/ACETAM 5/325 [[place] 5/325] 1 ea PO Q6H PRN #15 tablet 10/16/23 Rivaroxaban [Xarelto] 20 mg PO BID 10/16/23 - Allergies Allergies/Adverse Reactions: Allergies Allergy/AdvReac Type Severity Reaction Status Date / Time No Known Drug Allergies Allergy Verified 12/09/20 17:42 - Social History Does the pt smoke?: No Smoking Status: Never smoker Does the pt drink ETOH?: Yes Does the pt have substance abuse?: No - Immunizations Immunizations are current?: Yes - POLST Patient has POLST: No PD ED PE NORMAL - Vitals Vital signs reviewed: Yes - General General: Alert and oriented X 3, No acute distress, Well developed/nourished - HEENT HEENT: Atraumatic - Neck Neck: Supple, no meningeal sign, No bony TTP - Respiratory Respiratory: Clear bilaterally, Other (no chestwall tenderness. ) - Abdomen Abdomen: Soft, Non tender - Back Back: No spinal TTP - Derm Derm: Normal color, Warm and dry - Extremities Extremities: Other (proximal fibular area with some tenderness. Lower part of lower leg has tenderness around anterior and medial ankle. ) - Neuro Neuro: Alert and oriented X 3, No motor deficit Results - Vitals Vitals: Vital Signs - 24 hr 10/16/23 10/16/23 11:36 13:41 Temperature 36.1 C L Heart Rate 82 70 Respiratory 20 16 Rate Blood Pressure 95/47 L 159/93 H O2 Saturation 95 98 Oxygen O2 Source Room air - Rads (name of study) tib/fib Relevant Findings:: Prelim report reviewed, EMP independent interpretation of test (proximal fibular Fx, nondisplaced. Prior hardware at ankle without disruption compared to prior imaging.) PD Medical Decision Making - ED course Complexity details: considered differential, d/w patient ED course: The patient had impact on her buttock down a few stairs with twisting of the lower leg. No impact of the head and no headache. Initially was considering head CT given some fall and injury and she is on a anticoagulant. However minimal risk given no impact and no symptoms to the upper body. Shared decision is she would prefer not to have the CT scan and this seems reasonable. Departure - Departure Disposition: 01 Home, Self Care Clinical Impression: Ankle sprain, Fracture of proximal end of fibula Condition: Stable Record reviewed to determine appropriate education?: Yes Follow-Up: [facility] [Provider Group] Prescriptions: HYDROcod/ACETAM 5/325 [[place] 5/325] 1 ea PO Q6H PRN #15 tablet PRN Reason: Pain Comments: I do not see any fractures or dislodgment of the prior repair hardware around the ankle. No doubt you have some injury in that area given the pain of movement and such. This would presumably a sprain of the lower leg and ankle. You do have a fracture of the upper end of the fibula just below the side of the knee. This is an typically be treated with a knee immobilizer and crutches for partial to no weightbearing based on comfort. You will want to have the knee immobilizer when up and around and to reduce movement of the lower leg and knee for about 3 to 4 weeks. Continue with usual medicines. Tylenol 500 to 650 mg 4 times daily for the next several days to week. Add hydrocodone/acetaminophen if needed for pain. Follow-up with orthopedics in about a week to week and a half for reevaluation. Call [facility] for an appointment. Forms: PCP List Discharge Date/Time: 10/16/23 14:25
== END 2023-10-16 14:25 | disposition home or self-care (01) ==
LOC: EDUNIT# → ED 11:32
DX: S93.402A Sprain of unspecified ligament of left ankle, initial encounter (principal); S82.832A Other fracture of upper and lower end of left fibula, initial encounter for closed fracture; W10.9XXA Fall (on) (from) unspecified stairs and steps, initial encounter; Y93.01 Activity, walking, marching and hiking; I10 Essential (primary) hypertension; Z79.01 Long term (current) use of anticoagulants
CPT/HCPCS: 73590; 96372; 99283; 99284; A9270; J1170

== ENCOUNTER 2023-11-01 08:00 | Outpatient (CLI) | payer MEDICARE, OTHER ==
--- NOTE | 2023-11-01 17:20 | XRAY Report ---
PROCEDURE: Tib/Fib LT INDICATIONS: LEFT PROXIMAL FIBULA FRACTURE TECHNIQUE: 2 views of the tibia and fibula were acquired. COMPARISON: 10/16/2023. FINDINGS: Bones: Ongoing healing of minimally displaced and impacted proximal fibular metaphyseal fracture in unchanged alignment. Status post medial and lateral malleolar fixation using plate and screw construc ts. No evidence of hardware complication. Soft tissues: No suspicious soft tissue calcifications or masses. IMPRESSION: Ongoing healing of minimally displaced impacted proximal fibular metaphyseal fracture and unchanged a lignment. No new fracture identified. Reviewed by: Cinthya Madera MD on 11/01/2023 5:19 PM PST Approved by: Cinthya Madera MD on 11/01/2023 5:19 PM PST Station ID: [id number]
--- NOTE | 2023-11-01 17:25 | XRAY Report ---
PROCEDURE: Ankle 3 View LT INDICATIONS: LEFT ANKLE PAIN/ORIF TECHNIQUE: 3 views of the ankle were acquired. COMPARISON: Radiograph tib-fib 10/16/2023, left ankle radiographs 12/09/2020. FINDINGS: Bones: No fractures or dislocations. Ankle mortise is normally aligned and intact. Redemonstration of medial and lateral malleoli are fixation using plate and screw constructs. Alignment age from perico or. No evidence of hardware complication. No suspicious bony lesions. Soft tissues: No tibiotalar joint effusion. Achilles tendon appears normal. IMPRESSION: Stable postoperative appearance of the lateral and medial malleolar fixation without evidence of hard torres complication. If pain persists with conservative management, consider further evaluation with re peat radiographs in 7-10 days or cross-sectional imaging. Reviewed by: Cinthya Madera MD on 11/01/2023 5:23 PM PST Approved by: Cinthya Madera MD on 11/01/2023 5:23 PM PST Station ID: [id number]
== END 2023-11-01 08:01 | disposition home or self-care (01) ==
LOC: DI.WOS 08:00
PROVIDERS: ATTEND Orthopaedic Surgery
DX: S82.832D Other fracture of upper and lower end of left fibula, subsequent encounter for closed fracture with routine healing (principal); S82.842D Displaced bimalleolar fracture of left lower leg, subsequent encounter for closed fracture with routine healing

== ENCOUNTER 2024-03-12 08:00 | Outpatient (CLI) | payer MEDICARE, OTHER ==
[2024-03-12 19:43] LABS: BILIRUBIN,URINE NEGATIVE (NEGATIVE); GLUCOSE, URINE (UA) NEGATIVE (NEGATIVE); KETONES,URINE (UA) 15 mg/dL (NEGATIVE); LEUKOCYTE ESTERASE, URINE SMALL (NEGATIVE); NITRITE,URINE NEGATIVE (NEGATIVE); OCCULT BLOOD,URINE SMALL (NEGATIVE); PROTEIN,URINE NEGATIVE (NEGATIVE); UROBILINOGEN,URINE 0.2 (NORMAL) E.U./dL (NORMAL)
[2024-03-12 19:45] LABS: CLARITY,URINE CLOUDY (CLEAR)
[2024-03-12 20:13] LABS: AMORPHOUS SEDIMENT,UR Few /LPF; BACTERIA,URINE Few /HPF (None Seen); SQUAMOUS EPITHELIAL CELL,UR FEW Squamous (<= Few)
== END 2024-03-12 23:59 | disposition home or self-care (01) ==
LOC: LAB 08:00
PROVIDERS: ATTEND Emergency Medicine
DX: R39.15 Urgency of urination (principal)
CPT/HCPCS: 81001; 87086

== ENCOUNTER 2024-03-21 14:21 | Outpatient (CLI) | payer MEDICARE, OTHER ==
[2024-03-21 20:01] LABS: HCT - HEMATOCRIT 47.4 % (37.0-47.0); HGB - HEMOGLOBIN 14.8 g/dL (12.0-16.0); MEAN CORPUSCULAR HEMOGLOBIN 28.7 pg (27.0-31.0); MEAN CORPUSCULAR HGB CONC 31.2 g/dL (32.0-36.0); MEAN CORPUSCULAR VOLUME 91.9 fL (81.0-99.0); RED BLOOD COUNT 5.16 10^6/uL (4.20-5.40); WHITE BLOOD COUNT 7.4 x10^3/uL (4.8-10.8)
[2024-03-21 20:22] LABS: CREATININE 0.7 mg/dL (0.6-1.3)
== END 2024-03-21 14:22 | disposition home or self-care (01) ==
LOC: LAB.S 14:21
PROVIDERS: ATTEND Pharmacist
DX: I82.402 Acute embolism and thrombosis of unspecified deep veins of left lower extremity (principal)
CPT/HCPCS: 36415; 82565; 85027

== ENCOUNTER 2024-05-15 12:53 | Outpatient (CLI) | payer MEDICARE, OTHER ==
--- NOTE | 2024-05-17 10:38 | Mammography Report ---
BILATERAL DIGITAL SCREENING MAMMOGRAM 3D/2D: 05/15/2024 CLINICAL: Routine screening. Comparison is made to exams dated: 12/31/2021 mammogram and 02/08/2018 mammogram - [facility], [place]. There are scattered areas of fibroglandular density in both breasts (category b / 25%-50% glandular t issue). There is an irregular high density mass with a microlobulated margin and fine punctate calcifications in the right breast at 6 o'clock posterior depth. There is architectural distortion associated with the mass. No other significant masses, calcifications, or other findings are seen in either breast. IMPRESSION: INCOMPLETE: NEEDS ADDITIONAL IMAGING EVALUATION The irregular high density mass in the right breast is indeterminate. Additional views with possible ultrasound are recommended. Based on the Tyrer Cuzick model (a risk assessment model) the patient's lifetime risk is 5.3% and her 10 year risk is 4.4%. According to the ACR, ACS, and NCCN guidelines, an annual breast MRI exam crispin g with mammogram is recommended if the patient's lifetime risk is 20% or greater. This exam was interpreted at Station ID: [id number]. NOTE: For mammograms, a report in lay terms will be sent to the patient. Approximately 15% of breast malignancies will not be visualized mammographically. In the management of a palpable breast mass, a negative mammogram must not discourage biopsy of a clinically suspicious lesion. Electronically Signed By: Barbara salazar/jaime:05/16/2024 09:20:35 ACR BI-RADS Category 0: Incomplete 3340F PARENCHYMAL PATTERN: (A) - The breast(s) demonstrate(s) scattered fibroglandular densities. BI-RADS CATEGORY: (0) - 0 Mammo and [place] [id number] Immediate follow-up LATERALITY: (B)
== END 2024-05-15 12:54 | disposition home or self-care (01) ==
LOC: DI.S 12:53
DX: Z12.31 Encounter for screening mammogram for malignant neoplasm of breast (principal); R92.8 Other abnormal and inconclusive findings on diagnostic imaging of breast; R92.323 Mammographic fibroglandular density, bilateral breasts

== ENCOUNTER 2024-05-29 13:26 | Outpatient (CLI) | payer MEDICARE, OTHER ==
--- NOTE | 2024-05-30 10:49 | Mammography Report ---
UNILATERAL RIGHT DIGITAL DIAGNOSTIC MAMMOGRAM 3D/2D WITH SPOT COMPRESSION: 05/29/2024 CLINICAL: Patient returns for additional imaging over a suspected mass in the right breast. Comparison is made to exams dated: 05/15/2024 mammogram - [facility], 12/31/2021 mamm ogram, and 02/08/2018 mammogram - [facility]. There are scattered areas of fibroglandular density in the right breast (category b / 25%-50% glandul ar tissue). There is a 1.5 cm irregular high density mass with a spiculated and microlobulated margin and fine pu nctate calcifications in the right breast at 6 o'clock middle depth. This is seen in additional view s. No other significant masses or calcifications are seen in the breast. IMPRESSION: INCOMPLETE: NEEDS ADDITIONAL IMAGING EVALUATION The 1.5 cm irregular high density mass in the right breast persists with additional views and is susp icious. Ultrasound is recommended for full evaluation of this area. This was performed immediately fo llowing this exam. Based on the Tyrer Cuzick model (a risk assessment model) the patient's lifetime risk is 5.3% and her 10 year risk is 4.4%. According to the ACR, ACS, and NCCN guidelines, an annual breast MRI exam crispin g with mammogram is recommended if the patient's lifetime risk is 20% or greater. This exam was interpreted at Station ID: [id number]. NOTE: For mammograms, a report in lay terms will be sent to the patient. Approximately 15% of breast malignancies will not be visualized mammographically. In the management of a palpable breast mass, a negative mammogram must not discourage biopsy of a clinically suspicious lesion. Electronically Signed By: Barbara salazar/:05/29/2024 14:16:55 ACR BI-RADS Category 0: Incomplete 3340F PARENCHYMAL PATTERN: (A) - The breast(s) demonstrate(s) scattered fibroglandular densities. BI-RADS CATEGORY: (0) - 0 Ultrasound [id number] Immediate follow-up LATERALITY: (B)
--- NOTE | 2024-05-30 10:50 | Ultrasound Report ---
LIMITED ULTRASOUND OF RIGHT BREAST AND AXILLA: 05/29/2024 CLINICAL: Patient returns today to evaluate a focal asymmetry in the right breast. Comparison is made to exams dated: 05/29/2024 mammogram, 05/15/2024 mammogram - [facility], 12/31/2021 mammogram, and 02/08/2018 mammogram - [facility]. Color flow ultrasound of the right breast 7 o'clock, and axilla regions was performed. Peña scale im ages of the real-time examination were reviewed. There is a 1.3 cm x 1.4 cm x 1.1 cm irregular mass with an angular and spiculated margin in the right breast at 7 o'clock middle depth 7 cm from the nipple. This irregular mass is hypoechoic with an ec hogenic boundary and posterior acoustic shadowing. This correlates with mammography findings. There are related calcifications. Color flow imaging demonstrates that there is increased vascularity. IMPRESSION: HIGHLY SUGGESTIVE OF MALIGNANCY The 1.3 cm x 1.4 cm x 1.1 cm irregular mass in the right breast is highly suggestive of malignancy. An ultrasound guided biopsy is recommended. Findings and recommendations were discussed with the patient in person by Dr Jo at time of exa m. This exam was interpreted at Station ID: [id number]. Electronically Signed By: Barbara salazar/:05/29/2024 14:49:27 Ultrasound BI-RADS: 5 Highly suggestive of malignancy BI-RADS CATEGORY: (5) - 5 Biopsy [id number] Immediate follow-up LATERALITY: (R)
== END 2024-05-29 13:27 | disposition home or self-care (01) ==
LOC: DI 13:26
PROVIDERS: ATTEND Family Medicine
DX: N63.13 Unspecified lump in the right breast, lower outer quadrant (principal); R92.321 Mammographic fibroglandular density, right breast

== ENCOUNTER 2024-07-07 03:31 | Outpatient (CLI) | payer MEDICARE, OTHER | END 2024-07-07 03:32 | disposition EMS.NT | LOC: EMS 03:31 | DX: Z03.89 Encounter for observation for other suspected diseases and conditions ruled out (principal); Z91.81 History of falling ==

== ENCOUNTER 2024-11-26 11:15 | Inpatient (IN) ==
[2024-11-26 12:29] LABS: BASOPHILS # (AUTO) 0.1 10^3/uL (0.0-0.1); BASOPHILS % (AUTO) 0.4 %; HCT - HEMATOCRIT 36.4 % (37.0-47.0); LYMPHOCYTES # (AUTO) 1.9 10^3/uL (1.5-3.5); LYMPHOCYTES % (AUTO) 7.8 %; MEAN CORPUSCULAR HEMOGLOBIN 30.2 pg (27.0-31.0); MEAN CORPUSCULAR VOLUME 91.7 fL (81.0-99.0); MEAN PLATELET VOLUME 10.2 fL (7.9-10.8); MONOCYTES # (AUTO) 1.6 10^3/uL (0.0-1.0); MONOCYTES % (AUTO) 6.5 %; NEUTROPHILS # (AUTO) 20.5 10^3/uL (1.5-6.6); NEUTROPHILS % (AUTO) 82.9 %; NRBC ABSOLUTE COUNT (AUTO) 0.03 x10^3/uL; NUCLEATED RED BLOOD CELLS AUTO 0.1 /100WBC; PLT - PLATELET COUNT 178 10^3/uL (130-450); RED BLOOD COUNT 3.97 10^6/uL (4.20-5.40); RED CELL DISTRIBUTION WIDTH 16.9 % (12.0-15.0); WHITE BLOOD COUNT 24.7 x10^3/uL (4.8-10.8)
[2024-11-26 12:33] LABS: INR 1.7 (0.8-1.2)
[2024-11-26 12:41] LABS: ALBUMIN 3.8 g/dL (3.2-5.5); ALBUMIN/GLOBULIN RATIO 2.1 (1.0-2.2); BILIRUBIN,TOTAL 0.4 mg/dL (0.2-1.0); CALCIUM 8.4 mg/dL (8.5-10.3); CREATININE 0.7 mg/dL (0.6-1.3); POTASSIUM 2.8 mmol/L (3.5-4.5); TOTAL PROTEIN 5.6 g/dL (6.4-8.9)
[2024-11-26 13:01] LABS: DIFFERENTIAL COMMENT MANUAL=AUTO DIFF; RBC MORPHOLOGY (MULTIPLE) NORMAL APPEARANCE (NORMAL)
[2024-11-26] MEDS: POTASSIUM CHLOR 10 MEQ/100 ML 10 MEQ/100 ML BAG IV STA (13:20)
[2024-11-26] MEDS: SODIUM CHLORIDE 0.9% 1,000 ML IV STA ×2 (13:20→15:34)
[2024-11-26] MEDS ORDERED: iohexoL-300 100 ML VIAL ONE (15:25)
--- NOTE | 2024-11-26 15:38 | XRAY Report ---
PROCEDURE: XR Chest 1V INDICATIONS: infection work up TECHNIQUE: One view of the chest was acquired. COMPARISON: Chest CT 09/11/2024 FINDINGS: Surgical changes and devices: Right portacatheter with tip projecting over the mid SVC. Lungs and pleura: There may be a retrocardiac opacity. The left costophrenic angle is not seen. Mediastinum: Heart size is at the upper limit of normal. Bones and chest wall: Degenerative changes IMPRESSION: Possible retrocardiac opacity. A lateral view or CT could be helpful. No large pleural effusion. The left costophrenic angle is not seen. Reviewed by: Nadeem Álvarez MD on 11/26/2024 3:37 PM PST Approved by: Nadeem Álvarez MD on 11/26/2024 3:37 PM PST Station ID: [id number]
[2024-11-26] MEDS: iohexoL-300 100 ML VIAL IVP ONE (15:53)
--- NOTE | 2024-11-26 16:46 | CT Report ---
PROCEDURE: CT Chest W INDICATIONS: concern for infection CONTRAST: OMNI 300 100ML TECHNIQUE: After the administration of intravenous contrast, a CT scan of the chest was performed. Images were recorded and evaluated at appropriate window settings. Reformats: axial MIP of the chest, coronal and sagittal. For radiation dose reduction, the following was used: automated exposure control, adjustme nt of mA and/or kV according to patient size. COMPARISON: 09/11/2024 FINDINGS: Image quality: Diagnostic. Chest wall and lower neck: No thyroid nodule which requires sonographic follow up. No breast mass. No axillary or supraclavicular adenopathy by size. Previous small right breast mass no longer present. Right chest Port-A-Cath. Lungs and pleura: No consolidation. No pleural effusions. No pneumothorax. No suspicious pulmonary n odules which require follow up. Mediastinum: Heart size is normal. No pericardial effusion. Aneurysmal dilatation of the ascending ao rta, measuring 4.4 cm at the level of the right main pulmonary artery. Reference axial image 61 of se kevin 2.. No mediastinal adenopathy by size criteria. Bones: No aggressive osseous abnormality. Upper Abdomen: Unremarkable. IMPRESSION: 1. A right breast mass is no longer identifiable. 2. No acute pulmonary process. 3. No metastatic disease in the chest noted. 4. Mild aneurysmal dilatation of ascending aorta, measuring 4.4 cm. Reviewed by: Chuy Mcneill MD on 11/26/2024 4:44 PM PST Approved by: Chuy Mcneill MD on 11/26/2024 4:44 PM PST Station ID: [id number]
--- NOTE | 2024-11-26 16:54 | CT Report ---
PROCEDURE: CT Abdomen/Pelvis W INDICATIONS: abdominal pain, diarrhea, concern for infection CONTRAST: OMNI 300 100ML TECHNIQUE: After the administration of intravenous contrast, a CT scan of the abdomen and pelvis was performed. Images were recorded and evaluated at appropriate window settings. Reformats: coronal and sagittal. F or radiation dose reduction, the following was used: automated exposure control, adjustment of mA and /or kV according to patient size. COMPARISON: CT chest from today, CT abdomen and pelvis with contrast dated 09/11/2024 FINDINGS: Image quality: Diagnostic. Lower chest: Small right breast mass no longer identifiable. Extreme lung bases are clear. Heart size is within normal limits. Liver: No solid mass. Gallbladder: No radiopaque stones or wall thickening. Biliary tree: No intrahepatic or extrahepatic dilation, accounting for age. Spleen: No splenomegaly. Pancreas: No pancreatic ductal dilation. Adrenals: No adrenal nodule. Kidneys and ureters: No hydronephrosis. No renal cystic lesion which requires follow up. No solid mas s. Stomach, bowel and peritoneum: Stomach is unremarkable. Duodenal C-loop is inflamed with inflammation in the surrounding fat consistent with duodenitis. Question possible second portion of the duodenum medially directed ulcer. Reference coronal image 49 of series 4. Also reference axial image 76 of ser ies 2. No pathologic free fluid. Normal appendix. Diverticulosis without evidence of acute diverticul itis. Lymph nodes: No central or retroperitoneal adenopathy. Vessels: No infrarenal aortic aneurysm. Patent portal vein. PELVIS Reproductive organs: Uterus is surgically absent. No adnexal masses. . Bladder: No abnormal wall thickening, accounting for underdistention. Pelvic lymph nodes: No pelvic adenopathy by size criteria. Bones: No aggressive osseous abnormality. Lumbar degenerative change. Old mild T12 compression.. Other: No significant ventral or inguinal hernia. IMPRESSION: 1. Duodenitis with question of a medially directed second portion of the duodenum ulcer. Inflammatory change in the subjacent fat. 2. No evidence of metastatic disease. Reviewed by: Chuy Mcneill MD on 11/26/2024 4:52 PM PST Approved by: Chuy Mcneill MD on 11/26/2024 4:52 PM PST Station ID: [id number]
[2024-11-26] MEDS: cefTRIAXone 2 GM VIAL IVP STA (18:33)
--- NOTE | 2024-11-26 18:42 | HISTORY & PHYSICAL EXAMINATION ---
History of Present Illness Admitted From Admitted From:: home History Obtained From Records Reviewed: Oncology clinic notes History obtained from: Patient History of Present Illness HPI Comment/Other: 74-year-old female who presents to the emergency department with complaints of melena for about 3 days. She has had fatigue and generalized weakness for several weeks. She is 4 out of 6 sessions into her chemotherapy treatment for breast cancer. She is also noted in the last several days not nausea but absolutely no appetite. None of the symptoms are the usual things that she gets after her chemotherapy treatments. Her last chemotherapy treatment was approximately 10 days ago. She has not had any vomiting she has had large volume dark stools. She has not had any cough she has not been running any fever she does not have any chest pain she denies abdominal pain she denies back pain she is not having any extremity swelling. She has a past medical history of DVT related to COVID infection in 2020.She has been on Xarelto since that time. That is her only lifetime episode of thromboembolic event She has a past surgical history of hysterectomy She does not smoke she does not drink alcohol she lives with her in [place] and they have large group of very supportive friends. Her PCP is Dr. Brown her oncologist is Dr. Burrell here at our [facility] and her surgeon is Dr. Chaz Chino in [place]. She endorses full CODE STATUS. She think she has a POLST somewhere but she is not quite sure. her is her surrogate decision maker. Meds/Allgy Home Medications Ambulatory Orders Medication Instructions Recorded Confirmed rivaroxaban 15 mg tablet (Xarelto) 20 mg PO DAILY 10/16/23 11/26/24 escitalopram oxalate 20 mg tablet 20 mg PO QDAY 08/27/24 11/26/24 gabapentin 100 mg capsule 100 mg PO QDAY 08/27/24 11/26/24 latanoprost 0.005 % eye drops 1 drp ophthalmic (eye) QDAY 08/27/24 11/26/24 lisinopril 20 mg tablet 20 mg PO QDAY PRN hypertension 08/27/24 11/26/24 ondansetron HCl 8 mg tablet 8 mg PO TID #90 tabs 09/11/24 11/26/24 prochlorperazine maleate 10 mg 10 mg PO TID #90 tabs 09/11/24 11/26/24 tablet (Compazine) Allergies Allergies Allergy/AdvReac Type Severity Reaction Status Date / Time No Known Drug Allergies Allergy Verified 11/26/24 11:25 [facility] Medical History Medical History Bimalleolar fracture of left ankle Forehead laceration Pneumonia Dehydration Hypokalemia Left femoral vein DVT Healthcare maintenance Breast cancer, right Encounter for education about infusion care Encounter for antineoplastic chemotherapy Left adrenal mass Depression High blood pressure Left ankle injury Surgical History Surgical History H/O: hysterectomy Social History Social History Smoking Status: Never smoker Second hand tobacco smoke exposure: No Do you dip or chew tobacco?: No Do you vape?: No Living arrangement: At home Relationship: Level: Independent Home Mobility Equipment: Crutches Do you feel safe in your home environment?: Yes Suffered physical, verbal, emotional, or financial abuse?: No History of Abuse: No Frequency: Occasional Substance Use: denies use POLST Patient has POLST: No POLST Status: Full Code Review of Systems Status of ROS: 10 or more systems reviewed and unremarkable except as noted in history and below Constitutional Reports: Fatigue, Malaise and Poor appetite Eyes Reports: Corrective lenses; Denies: Vision loss Ears, nose, mouth, and throat Denies: Change in hearing, Throat pain or Throat swelling Cardiovascular Denies: Irregular heart rate, chest pain, palpitations, edema, swelling of feet/ankles or shortness of breath with exertion Respiratory Denies: Shortness of breath or Cough Gastrointestinal Reports: Poor appetite, Diarrhea, Change in stool character and Melena; Denies: Abdominal pain, Abdominal distention, Nausea, Vomiting, Heartburn or Blood in stool Genitourinary Denies: Painful urination, Urinary frequency or Urinary urgency Musculoskeletal Denies: Back pain Integumentary/Breast Denies: Rash Neurological Denies: Headache Endocrine Reports: Fatigue Hematologic/Lymphatic Denies: Easy bruising or Blood clots Allergic/Immunologic Denies: Throat swelling Prior Level of Functionality: independent Exam Constitutional normal general appearance alopecia HENMT normocephalic, head/scalp atraumatic, hearing grossly normal bilaterally, oral mucous membranes normal and dentition normal Eyes conjunctivae normal and no scleral icterus Neck/C-Spine visual inspection normal and trachea midline Lymph no lymphadenopathy noted Chest inspection of chest normal right chest wall port without tenderness or edema. Respiratory breath sounds equal bilaterally and normal respiratory effort Cardiovascular normal heart rate noted Gastrointestinal abdomen normal to inspection, abdomen soft to palpation, nontender to palpation and nondistended Back/Pelvis spine normal to inspection Extremities normal to inspection Neurology document management analyst II-XII intact and GCS 15 Psychiatry mental status grossly normal, oriented x3, thought process normal, cooperative and affect normal Skin skin color normal Sepsis Event Note (H) Evaluation Current Stage of Sepsis: Sepsis Possible source of Sepsis: positive GI tract/intra-abdominal and Skin/soft tissue Sepsis Criteria Sepsis Criteria: WBC count greater than 12,000 or less than 4000 Conclusion/Plan Problem List (1) Sepsis: Plan: Elevated WBC count with fatigue. She has not been running fevers. She is about 10 days post her last chemo tx for breast cancer. WBC24. I will recheck WBC in the AM. I have ordered a lactic acid level. ED has ordered UA, but not yet collected. Potential sources for her sepsis could be her duodenal inflammation, her indwelling chemo port, or her urine. ED has ordered blood cultures, one set from the port. I will followup on these results. I am starting her on broad spectrum abx to cover for skin and intraabdominal sources (vanc and zosyn) Discussed with ESTELA Gonzalez and decision was made to admit based on this sepsis of unknown origin for broad spectrum abx, monitoring of WBC and vital signs. She will be admitted to inpatient status as I believe she will be here for >2 MN. Qualifiers: Sepsis type: sepsis due to unspecified organism Severe sepsis shock status: without septic shock (2) Upper GI bleed: Plan: Patient reports large volume melena at home. She does have a decrease in her hemoglobin that is quite gradual. I will monitor for decreasing Hgb, hypotension, tachycardia. I have discussed with Dr Em, production miner surgery who will evaluated patient in ED. I will place her on BID PPI, Carafate, clear liquid diet. I will check Hgb in the AM. She has not had any additional melena since arriving at the ED Laboratory Tests 08/27/24 09/13/24 10/04/24 13:45 07:45 08:44 Hgb 14.8 15.3 13.2 10/25/24 11/14/24 11/26/24 08:22 08:14 12:09 Hgb 13.0 12.5 12.0 (3) Duodenitis: Plan: CT abdomen shows duodenal inflammation. Patient denies N/V but does have very poor appetite. she denies h/o GERD, she has not been having any back pain. I think this could be the cause of her GIB. I will treat with above listed measures for GIB. If her HGB drops, will proceed for EGD per Dr Em. (4) Hypokalemia: Plan: Will replete this evening. I have ordered repeat BMP for the AM> (5) Left femoral vein DVT: Plan: s/p DVT related to COVID infection in 2020. She has been on Xarelto since that time. She does not have any other h/o thrombo embolic events. She is actively being treated for cancer, so certainly has that risk. I am currently holding her Xarelto as well as chemical DVT prophy due to bleeding risk at this time. Qualifiers: Chronicity: chronic Qualified Code(s): I82.512 - Chronic embolism and thrombosis of left femoral vein (6) Breast cancer, right: Plan: 02/03 chemo tx completed. Then plans to have lumpectomy with Dr Chino in [place]. After that she will have immunotherapy through the [facility]. She has done well overall with her treatment. Qualifiers: Breast location: lower outer quadrant of breast Estrogen receptor status: positive Patient sex: female Qualified Code(s): C50.511 - Malignant neoplasm of lower-outer quadrant of right female breast; Z17.0 - Estrogen receptor positive status [ER+] (7) High blood pressure: Plan: holding OP meds. hypotensive on presentation today. fluid responsive. Plan I have spent 80 minutes in the care of this patient today. This includes time [id number], review and ordering of diagnostic imaging and laboratory studies and consultation with other providers.. Monitoring the patient's signs symptoms, evaluation of medication effectiveness and patient's response to treatment. Lab Results Lab results reviewed: Yes 11/26/24 12:09 11/26/24 12:09
[2024-11-26] MEDS ORDERED: oxyCODONE 5 MG TABLET PO PRN (19:10)
[2024-11-26] MEDS ORDERED: ACETAMINOPHEN 325 MG TABLET PO PRN (19:10)
[2024-11-26] MEDS ORDERED: SODIUM CHLORIDE FLUSH 0.9% 10 ML SYRINGE IVP PRN (19:10)
[2024-11-26] MEDS ORDERED: PROCHLORPERAZINE 10 MG/2 ML VIAL IVP PRN (19:10)
[2024-11-26] MEDS: PANTOPRAZOLE 40 MG VIAL IVP SCH (19:21)
[2024-11-26] MEDS: LATANOPROST 0.005% OPHTH DROPS EACHEYE SCH (19:36)
[2024-11-26] MEDS: ESCITALOPRAM 10 MG TABLET PO SCH (19:36)
[2024-11-26] MEDS: GABAPENTIN 100 MG CAPSULE PO SCH (19:36)
[2024-11-26] MEDS: FAMOTIDINE 20 MG/2 ML VIAL IVP SCH (20:26)
[2024-11-26] MEDS: POTASSIUM CHLOR 10 MEQ/100 ML 10 MEQ/100 ML BAG IV SCH (20:41)
[2024-11-26] MEDS: PIPERACILLIN/TAZOBACTAM 3.375 GM in SODIUM CHLORIDE 0.9% MINIBAG 100 ML IV SCH (21:40)
[2024-11-26] MEDS: SUCRALFATE 1 GM/10 ML UDC PO SCH (21:47)
--- NOTE | 2024-11-26 22:16 | ED Physician Documentation ---
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 Patient is currently undergoing treatment chemo treatment and was instructed to come to the emergency department after she has been having some black diarrhea going on for about a week and a half now. She notes generalized fatigue but this has been going on since her chemotherapy treatment started. She last had her chemo dose on 11/14. She follows with Dr. Burrell. She denies any vomiting black or bloody stools. She is on blood thinners for chronic history of left femoral vein DVT for about 4 to 5 years she takes Xarelto. She has no previous history of GI bleeds. She denies any pain at this time. No fevers or chills. Meds/Allgy Home Medications Ambulatory Orders Medication Instructions Recorded Confirmed rivaroxaban 15 mg tablet (Xarelto) 20 mg PO DAILY 10/16/23 11/26/24 escitalopram oxalate 20 mg tablet 20 mg PO QDAY 08/27/24 11/26/24 gabapentin 100 mg capsule 100 mg PO QDAY 08/27/24 11/26/24 latanoprost 0.005 % eye drops 1 drp ophthalmic (eye) QDAY 08/27/24 11/26/24 lisinopril 20 mg tablet 20 mg PO QDAY PRN hypertension 08/27/24 11/26/24 ondansetron HCl 8 mg tablet 8 mg PO TID #90 tabs 09/11/24 11/26/24 prochlorperazine maleate 10 mg 10 mg PO TID #90 tabs 09/11/24 11/26/24 tablet (Compazine) Allergies Allergies Allergy/AdvReac Type Severity Reaction Status Date / Time No Known Drug Allergies Allergy Verified 11/26/24 11:25 [facility] Medical History Medical History Bimalleolar fracture of left ankle Forehead laceration Pneumonia Dehydration Hypokalemia Left femoral vein DVT Healthcare maintenance Breast cancer, right Encounter for education about infusion care Encounter for antineoplastic chemotherapy Left adrenal mass Depression High blood pressure Left ankle injury Surgical History Surgical History H/O: hysterectomy Social History Social History Smoking Status: Never smoker Second hand tobacco smoke exposure: No Do you dip or chew tobacco?: No Do you vape?: No Living arrangement: At home Relationship: Level: Independent Home Mobility Equipment: Crutches Do you feel safe in your home environment?: Yes Suffered physical, verbal, emotional, or financial abuse?: No History of Abuse: No Frequency: Occasional Substance Use: denies use POLST Patient has POLST: No POLST Status: Full Code Exam Constitutional normal general appearance HENMT normocephalic and head/scalp atraumatic Eyes PERRL, EOMs intact bilaterally and conjunctivae normal Neck/C-Spine visual inspection normal Supple no signs of lymphadenopathy Respiratory breath sounds equal bilaterally, normal respiratory effort and clear to auscultation bilaterally Cardiovascular normal heart rate noted, regular rhythm noted, no gallop, no rub and no murmur Genitourinary Rectal exam does show black stool on examination. Extremities normal to inspection No significant lower leg swelling Skin skin color normal Results Vitals Vitals: Vital Signs - 24 hr 11/26/24 11:18 11/26/24 13:25 11/26/24 15:00 Temperature 36.4 C L 36.5 C Temperature Source Temporal Artery Scan Tympanic Pulse Rate 82 86 81 Respiratory Rate 16 18 18 Blood Pressure 90/57 L 100/60 107/81 O2 Saturation 97 98 98 O2 Source Room air Room air Room air Pain Intensity 1 2 11/26/24 17:15 Temperature Temperature Source Pulse Rate 100 Respiratory Rate 24 Blood Pressure 125/67 O2 Saturation 96 O2 Source Room air Pain Intensity 0 Oxygen O2 Source Room air EKG (time done) 1423: EKG releavant findings:: EKG personally interpreted by author of this note. Relevant findings are: Rate: Rate (enter#) (136) Rhythm: Atrial fibrillation [place]: Normal Ischemia: Normal ST segments Compare to prior EKG: Unchanged from prior EKG Computer interpretation: Agree with computer Labs Labs: Microbiology 11/26/24 14:00 Occult Blood - Final Stool Laboratory Tests 11/26/24 11/26/24 12:09 18:27 WBC 24.7 H RBC 3.97 L Hgb 12.0 Hct 36.4 L MCV 91.7 MCH 30.2 MCHC 33.0 RDW 16.9 H Plt Count 178 MPV 10.2 Neut # (Auto) 20.5 H Lymph # (Auto) 1.9 Gregory # (Auto) 1.6 H Eos # (Auto) 0.0 Baso # (Auto) 0.1 Absolute Nucleated RBC 0.03 Band Neuts % (Manual) Not Reportable Abnorm Lymph % (Manual) Not Reportable Nucleated RBC % 0.1 Neutrophils # (Manual) Not Reportable Lymphocytes # (Manual) Not Reportable Monocytes # (Manual) Not Reportable Eosinophils # (Manual) Not Reportable Basophils # (Manual) Not Reportable Differential Comment MANUAL=AUTO DIFF RBC Morph Micro Appear NORMAL APPEARANCE PT 18.0 H INR 1.7 H Sodium 142 Potassium 2.8 L Chloride 105 Carbon Dioxide 25 Anion Gap 12.0 BUN 18 Creatinine 0.7 Estimated GFR (MDRD) 82 L Glucose 97 Lactic Acid 1.2 Calcium 8.4 L Magnesium 1.7 Total Bilirubin 0.4 AST 19 ALT 15 Alkaline Phosphatase 95 Total Protein 5.6 L Albumin 3.8 Globulin 1.8 L Albumin/Globulin Ratio 2.1 Lipase 36 Rads (name of study) CXR: Interpretation: Possible retrocardiac opacity. A lateral view or CT could be helpful. No large pleural effusion. The left costophrenic angle is not seen. CT chest: Relevant Findings:: EMP independent interpretation of test Interpretation: A right breast mass is no longer identifiable.No acute pulmonary process. No metastatic disease in the chest noted. Mild aneurysmal dilatation of ascending aorta, measuring 4.[address] abdomen/pelvis: Relevant Findings:: EMP independent interpretation of test Interpretation: 1. Duodenitis with question of a medially directed second portion of the duodenum ulcer. Inflammatory change in the subjacent No evidence of metastatic disease. PD Medical Decision Making ED course Complexity details: reviewed old records and reviewed results ED course: Patient 74-year-old female presents to the emergency department with black stools going on for a week and a half she is on Xarelto currently undergoing chemotherapy treatment with Dr. Burrell's office for right sided breast cancer. Patient notes she has been feeling more fatigued but suspected this is due to her chemotherapy. Vitals on arrival to show significant tachycardia to the 130s. EKG does show atrial fibrillation this is a new rhythm for patient. She does dip into the 80s occasionally while at rest. She is not hypoxic nontachy pneic on arrival clear breath sounds on auscultation. Labs here in the emergency department show significant leukocytosis of 25. Patient has slightly elevated INR of 1.7 this could be explained by patient being on Xarelto. CMP shows significant hypokalemia most likely secondary to diarrhea will replace via IV here in the ED. Patient was potassium of 2.8. Will give IV and oral. Guaiac test here in the ED is positive for blood in the stool. She did have black stools on examination.Patient continuously remains tachycardic but then will dip into the 80s holding off on metoprolol at this josue e however given significant leukocytosis with no explanation will obtain CT chest abdomen pelvis. CT chest does not continue to show any signs of pneumonia as an incidentally the on chest x-ray. CT abdomen pelvis shows findings of duodenitis this could explain patient's blood in her stool. There is no significant anemia noted in her labs. Discussed case with on-call oncologist Dr. Burrell who notes given her significant leukocytosis her chemotherapy does not explain significant white count. Will give a dose of IV antibiotics but prior to this we will obtain blood cultures from port and peripheral IV to rule out port infection. Discussed case with Dr. Kim hospitalist who is agreeable with admission and patient is agreeable with staying overnight. Discharge Plan Discharge Patient Disposition: 66 [facility] DC/Xfer Condition: Stable Clinical Impression: Blood in stool, Atrial fibrillation Interventions: ED Admission Assessment Last Done: 11/26/24 19:00
[2024-11-26] MEDS: SODIUM CHLORIDE FLUSH 0.9% 10 ML SYRINGE IVP SCH (23:47)
[2024-11-27 01:43] LABS: BILIRUBIN,URINE NEGATIVE (NEGATIVE); CLARITY,URINE CLEAR (CLEAR); GLUCOSE, URINE (UA) NEGATIVE (NEGATIVE); KETONES,URINE (UA) 40 mg/dL (NEGATIVE); LEUKOCYTE ESTERASE, URINE NEGATIVE (NEGATIVE); NITRITE,URINE NEGATIVE (NEGATIVE); OCCULT BLOOD,URINE NEGATIVE (NEGATIVE); PROTEIN,URINE TRACE mg/dL (NEGATIVE); UROBILINOGEN,URINE 0.2 (NORMAL) E.U./dL (NORMAL)
[2024-11-27 05:42] LABS: BASOPHILS # (AUTO) 0.1 10^3/uL (0.0-0.1); BASOPHILS % (AUTO) 0.4 %; EOSINOPHILS % (AUTO) 0.1 %; HCT - HEMATOCRIT 32.5 % (37.0-47.0); HGB - HEMOGLOBIN 10.5 g/dL (12.0-16.0); LYMPHOCYTES # (AUTO) 2.7 10^3/uL (1.5-3.5); LYMPHOCYTES % (AUTO) 13.9 %; MEAN CORPUSCULAR HEMOGLOBIN 30.1 pg (27.0-31.0); MEAN CORPUSCULAR HGB CONC 32.3 g/dL (32.0-36.0); MEAN CORPUSCULAR VOLUME 93.1 fL (81.0-99.0); MEAN PLATELET VOLUME 10.1 fL (7.9-10.8); MONOCYTES # (AUTO) 1.3 10^3/uL (0.0-1.0); MONOCYTES % (AUTO) 6.7 %; NEUTROPHILS # (AUTO) 15.1 10^3/uL (1.5-6.6); NEUTROPHILS % (AUTO) 77.3 %; NRBC ABSOLUTE COUNT (AUTO) 0.03 x10^3/uL; NUCLEATED RED BLOOD CELLS AUTO 0.2 /100WBC; PLT - PLATELET COUNT 150 10^3/uL (130-450); RED BLOOD COUNT 3.49 10^6/uL (4.20-5.40); RED CELL DISTRIBUTION WIDTH 17.1 % (12.0-15.0); WHITE BLOOD COUNT 19.5 x10^3/uL (4.8-10.8)
[2024-11-27 06:00] LABS: CALCIUM 7.7 mg/dL (8.5-10.3); CREATININE 0.7 mg/dL (0.6-1.3); POTASSIUM 3.1 mmol/L (3.5-4.5)
--- NOTE | 2024-11-27 07:22 | CONSULTATION NOTE ---
Referring Provider Name of Referring Provider:: Latha Enriquez) Consult Date: 11/27/24 Chief Complaint Chief Complaint Chief Complaint: anorexia History of Present Illness Admitted From Admitted From:: ED History Obtained From Records Reviewed: yes History obtained from: chart, primary team, patient History of Present Illness HPI Comment/Other: 74 y/o F presents with 3 day h/o melena and anorexia. She also has associated fatigue and generalized weakness for several weeks. She is 4 out of 6 sessions into her chemotherapy treatment for breast cancer (last chemo was 10 days ago). She denies nausea and feels different now than she typically does after chemotherapy treatments. Today, the patient denies pain or nausea. She is tolerting liquids but describes anorexia and early satiety with just a bite or two of food. She has had four BM's, all dark and liquid since presenting to the hospital, the most recent of which was early this morning. Patient denies tobacco or alcohol use. She does not take NSAIDs. She does not have any history of PUD or GERD. She does not take any acid reducing medications at baseline. She is on xarelto for a h/o DVT. 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 Bimalleolar fracture of left ankle Forehead laceration Pneumonia Dehydration Encounter for education about infusion care Left adrenal mass Depression High blood pressure Left ankle injury Surgical History Surgical History H/O: hysterectomy Social History Social History Smoking Status: Never smoker Second hand tobacco smoke exposure: No Do you dip or chew tobacco?: No Do you vape?: No Living arrangement: At home Relationship: Level: Independent Home Mobility Equipment: Crutches Do you feel safe in your home environment?: Yes Suffered physical, verbal, emotional, or financial abuse?: No History of Abuse: No Frequency: Occasional Substance Use: denies use POLST Patient has POLST: No POLST Status: Full Code Meds/Allgy Home Medications Ambulatory Orders Medication Instructions Recorded Confirmed escitalopram oxalate 20 mg tablet 20 mg PO DAILY 08/27/24 11/27/24 gabapentin 100 mg capsule 100 mg PO DAILY 08/27/24 11/27/24 latanoprost 0.005 % eye drops 1 drp ophthalmic (eye) DAILY 08/27/24 11/27/24 lisinopril 20 mg tablet 20 mg PO DAILY PRN hypertension 08/27/24 11/27/24 ondansetron HCl 8 mg tablet 8 mg PO TID PRN nausea and vomiting 11/27/24 11/27/24 prochlorperazine maleate 10 mg 10 mg PO TID PRN nausea and 11/27/24 11/27/24 tablet (Compazine) vomiting rivaroxaban 20 mg tablet (Xarelto) 20 mg PO QPM 11/27/24 11/27/24 Allergies Allergies Allergy/AdvReac Type Severity Reaction Status Date / Time No Known Drug Allergies Allergy Verified 11/26/24 11:25 Results Lab Results 11/27/24 05:33 11/27/24 05:33 Other Lab Results: Lab Results x24hrs 11/27/24 11/27/24 11/26/24 Range/Units 05:33 01:25 18:27 WBC 19.5 H (4.8-10.8) x10^3/uL RBC 3.49 L (4.20-5.40) 10^6/uL Hgb 10.5 L (12.0-16.0) g/dL Hct 32.5 L (37.0-47.0) % MCV 93.1 (81.0-99.0) fL MCH 30.1 (27.0-31.0) pg MCHC 32.3 (32.0-36.0) g/dL RDW 17.1 H (12.0-15.0) % Plt Count 150 (130-450) 10^3/uL MPV 10.1 (7.9-10.8) fL Neut # (Auto) 15.1 H (1.5-6.6) 10^3/uL Lymph # (Auto) 2.7 (1.5-3.5) 10^3/uL [place] # (Auto) 1.3 H (0.0-1.0) 10^3/uL Eos # (Auto) 0.0 (0.0-0.7) 10^3/uL Baso # (Auto) 0.1 (0.0-0.1) 10^3/uL Absolute Nucleated RBC 0.03 x10^3/uL Band Neuts % (Manual) Abnorm Lymph % (Manual) Nucleated RBC % 0.2 /100WBC Neutrophils # (Manual) Lymphocytes # (Manual) Monocytes # (Manual) Eosinophils # (Manual) Basophils # (Manual) Differential Comment RBC Morph Micro Appear (NORMAL) PT (9.9-12.6) secs INR (0.8-1.2) Sodium 142 (135-145) mmol/L Potassium 3.1 L (3.5-4.5) mmol/L Chloride 109 (101-111) mmol/L Carbon Dioxide 24 (21-32) mmol/L Anion Gap 9.0 (6-13) BUN 11 (6-20) mg/dL Creatinine 0.7 (0.6-1.3) mg/dL Estimated GFR (MDRD) 82 L (>89) Glucose 69 L (74-104) mg/dL Lactic Acid 1.2 (0.5-2.2) mmol/L Calcium 7.7 L (8.5-10.3) mg/dL Magnesium (1.7-2.3) mg/dL Total Bilirubin (0.2-1.0) mg/dL AST (10-42) IU/L ALT (10-60) IU/L Alkaline Phosphatase (42-121) IU/L Total Protein (6.4-8.9) g/dL Albumin (3.2-5.5) g/dL Globulin (2.1-4.2) g/dL Albumin/Globulin Ratio (1.0-2.2) Lipase (11-82) U/L Urine Color YELLOW Urine Clarity CLEAR (CLEAR) Urine pH 6.0 (5.0-7.5) PH Ur Specific [place] 1.020 (1.002-1.030) Urine Protein TRACE (NEGATIVE) mg/dL Urine Glucose (UA) NEGATIVE (NEGATIVE) mg/dL Urine Ketones 40 H (NEGATIVE) mg/dL Urine Occult Blood NEGATIVE (NEGATIVE) Urine Nitrite NEGATIVE (NEGATIVE) Urine Bilirubin NEGATIVE (NEGATIVE) Urine Urobilinogen 0.2 (NORMAL) (NORMAL) E.U./dL Ur Leukocyte Esterase NEGATIVE (NEGATIVE) Ur Microscopic Review NOT INDICATED Urine Culture Comments NOT INDICATED 11/26/24 Range/Units 12:09 WBC 24.7 H (4.8-10.8) x10^3/uL RBC 3.97 L (4.20-5.40) 10^6/uL Hgb 12.0 (12.0-16.0) g/dL Hct 36.4 L (37.0-47.0) % MCV 91.7 (81.0-99.0) fL MCH 30.2 (27.0-31.0) pg MCHC 33.0 (32.0-36.0) g/dL RDW 16.9 H (12.0-15.0) % Plt Count 178 (130-450) 10^3/uL MPV 10.2 (7.9-10.8) fL Neut # (Auto) 20.5 H (1.5-6.6) 10^3/uL Lymph # (Auto) 1.9 (1.5-3.5) 10^3/uL Emmet # (Auto) 1.6 H (0.0-1.0) 10^3/uL Eos # (Auto) 0.0 (0.0-0.7) 10^3/uL Baso # (Auto) 0.1 (0.0-0.1) 10^3/uL Absolute Nucleated RBC 0.03 x10^3/uL Band Neuts % (Manual) Not Reportable Abnorm Lymph % (Manual) Not Reportable Nucleated RBC % 0.1 /100WBC Neutrophils # (Manual) Not Reportable Lymphocytes # (Manual) Not Reportable Monocytes # (Manual) Not Reportable Eosinophils # (Manual) Not Reportable Basophils # (Manual) Not Reportable Differential Comment MANUAL=AUTO DIFF RBC Morph Micro Appear NORMAL APPEARANCE (NORMAL) PT 18.0 H (9.9-12.6) secs INR 1.7 H (0.8-1.2) Sodium 142 (135-145) mmol/L Potassium 2.8 L (3.5-4.5) mmol/L Chloride 105 (101-111) mmol/L Carbon Dioxide 25 (21-32) mmol/L Anion Gap 12.0 (6-13) BUN 18 (6-20) mg/dL Creatinine 0.7 (0.6-1.3) mg/dL Estimated GFR (MDRD) 82 L (>89) Glucose 97 (74-104) mg/dL Lactic Acid (0.5-2.2) mmol/L Calcium 8.4 L (8.5-10.3) mg/dL Magnesium 1.7 (1.7-2.3) mg/dL Total Bilirubin 0.4 (0.2-1.0) mg/dL AST 19 (10-42) IU/L ALT 15 (10-60) IU/L Alkaline Phosphatase 95 (42-121) IU/L Total Protein 5.6 L (6.4-8.9) g/dL Albumin 3.8 (3.2-5.5) g/dL Globulin 1.8 L (2.1-4.2) g/dL Albumin/Globulin Ratio 2.1 (1.0-2.2) Lipase 36 (11-82) U/L Urine Color Urine Clarity (CLEAR) Urine pH (5.0-7.5) PH Ur Specific [place] (1.002-1.030) Urine Protein (NEGATIVE) mg/dL Urine Glucose (UA) (NEGATIVE) mg/dL Urine Ketones (NEGATIVE) mg/dL Urine Occult Blood (NEGATIVE) Urine Nitrite (NEGATIVE) Urine Bilirubin (NEGATIVE) Urine Urobilinogen (NORMAL) E.U./dL Ur Leukocyte Esterase (NEGATIVE) Ur Microscopic Review Urine Culture Comments Diagnostic Imaging Results Diagnostic Imaging Results Comments: I personally intrepreted the images and reviewed the report from the patient's CT's of her chest, abdomen, and pelvis yesterday. She has signs of duodenitis and a possible duodenal ulcer. No free air or significant free fluid. Conclusion and Plan Consultation Note Consultation Note: 74 y/o F actively on chemotherapy with GI bleed, duodenitis. 1. GI bleed, duodenitis - BID PPI - I outlined the natural history of duodenitis and PUD as well as the rationale behind upper endoscopy. We discussed that the procedure will give us diagnostic information and may allow for therapeutic intervention. We then discussed the risks, benefits, and alternatives of endoscopy including bleeding and perforation. The patient voiced understanding, all questions were answered, and the patient wished to proceed. A consent was signed prior to the procedure. Plan to proceed with EGD. - NPO until after procedure - xarleto has been held since admission - no hematemesis Further recommendations pending results of upper endoscopy later today. Thank you for consulting me in the care of this patient. Post procedure update: Duodenitis noted on EGD without active bleeding. No ulcers. Recommend continued PPI and carafate. I did take biopsies for H pylori. Patient started on soft diet. Consider nutrition consult. Review of Systems Status of ROS: 10 or more systems reviewed and unremarkable except as noted in history and below Exam Exam GEN: No acute distress, appears stated age, alert and oriented HEENT: NCAT, MMM, EOMI NEURO: CN II-XII grossly intact, no obvious focal deficits CV: RRR, no murmer appreciated PULM: CTAB, no wheezes appreciated ABD: soft, obese, non tender to superficial or deep palpation, no rebound or guarding CIRCULATORY: no clubbing, cyanosis, or edema SKIN: no lesions appreciated LYMPH: no obvious lymphadenopathy MSK: 4/4 strength in all extremities PSYCH: Affect is appropriate
[2024-11-27] MEDS: POTASSIUM CHLORIDE 20 MEQ TABLET PO ONE (08:08)
[2024-11-27] MEDS: ONDANSETRON 4 MG/2 ML VIAL IVP PRN (08:17)
--- NOTE | 2024-11-27 10:09 | ANESTHESIA PROCEDURE NOTE ---
Pre-Anesthesia VS, & Labs Diagnosis Surgical Diagnosis:: anemia Procedure Procedure: EGD Vitals Vital Signs: Temp Pulse Resp BP Pulse Ox 36.7 C 83 24 122/59 L 97 11/27/24 08:27 11/27/24 08:27 11/27/24 08:27 11/27/24 08:27 11/27/24 08:27 NPO NPO: >8 hours Is Patient ?: No Lab Results Current Lab Results: Laboratory Tests 11/27/24 05:33: WBC 19.5 H, RBC 3.49 L, Hgb 10.5 L, Hct 32.5 L, MCV 93.1, MCH 30.1, MCHC 32.3, RDW 17.1 H, Plt Count 150, MPV 10.1, Neut # (Auto) 15.1 H, Lymph # (Auto) 2.7, [place] # (Auto) 1.3 H, Eos # (Auto) 0.0, Baso # (Auto) 0.1, Absolute Nucleated RBC 0.03, Nucleated RBC % 0.2, Sodium 142, Potassium 3.1 L, Chloride 109, Carbon Dioxide 24, Anion Gap 9.0, BUN 11, Creatinine 0.7, E stimated GFR (MDRD) 82 L, Glucose 69 L, Calcium 7.7 L 11/26/24 18:27: Lactic Acid 1.2 11/26/24 12:09: WBC 24.7 H, RBC 3.97 L, Hgb 12.0, Hct 36.4 L, MCV 91.7, MCH 30.2, MCHC 33.0, RDW 16.9 H, Plt Count 178, MPV 10.2, Neut # (Auto) 20.5 H, Lymph # (Auto) 1.9, [place] # (Auto) 1.6 H, Eos # (Auto) 0.0, Baso # (Auto) 0.1, Absolute Nucleated RBC 0.03, Band Neuts % (Manual) Not Reportable, Abnorm Lymph % (Manual) Not Reportable, Nucleated RBC % 0.1, Neutrophils # (Manual) Not Reportable, Lymphocytes # (Manual) Not Reportable, Monocytes # (Manual) Not Reportable, Eosinophils # (Manual) Not Reportable, Basophils # (Manual) Not Reportable, Differential Comment MANUAL=AUTO DIFF, RBC Morph Micro Appear NORMAL APPEARANCE, PT 18.0 H, INR 1.7 H, Sodium 142, Potassium 2.8 L, Chloride 105, Carbon Dioxide 25, Anion Gap 12.0, BUN 18, Creatinine 0.7, Estimated GFR (MDRD) 82 L, Glucose 97, Calcium 8.4 L, Magnesium 1.7, Total Bilirubin 0.4, AST 19, ALT 15, Alkaline Phosphatase 95, Total Protein 5.6 L, Albumin 3.8, Globulin 1.8 L, Albumin/Globulin Ratio 2.1, Lipase 36 11/27/24 05:33 11/27/24 05:33 Meds/Allgy Home Medications Ambulatory Orders Medication Instructions Recorded Confirmed escitalopram oxalate 20 mg tablet 20 mg PO QDAY 08/27/24 11/26/24 gabapentin 100 mg capsule 100 mg PO QDAY 08/27/24 11/26/24 latanoprost 0.005 % eye drops 1 drp ophthalmic (eye) QDAY 08/27/24 11/26/24 lisinopril 20 mg tablet 20 mg PO QDAY PRN hypertension 08/27/24 11/26/24 ondansetron HCl 8 mg tablet 8 mg PO TID PRN nausea and vomiting 11/27/24 11/27/24 prochlorperazine maleate 10 mg 10 mg PO TID PRN nausea and 11/27/24 11/27/24 tablet (Compazine) vomiting rivaroxaban 20 mg tablet (Xarelto) 20 mg PO QPM 11/27/24 11/27/24 Allergies Allergies Allergy/AdvReac Type Severity Reaction Status Date / Time No Known Drug Allergies Allergy Verified 11/26/24 11:25 [facility] Medical History Medical History (Updated 11/27/24 @ 09:55 by Rafia Em MD) Breast cancer, right 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 Bimalleolar fracture of left ankle Forehead laceration Pneumonia Dehydration Encounter for education about infusion care Left adrenal mass Depression High blood pressure Left ankle injury Surgical History Surgical History H/O: hysterectomy Social History Social History Smoking Status: Never smoker Second hand tobacco smoke exposure: No Do you dip or chew tobacco?: No Do you vape?: No Living arrangement: At home Relationship: Level: Independent Home Mobility Equipment: Crutches Do you feel safe in your home environment?: Yes Suffered physical, verbal, emotional, or financial abuse?: No History of Abuse: No Frequency: Occasional Substance Use: denies use POLST Patient has POLST: No POLST Status: Full Code Anesthesia Exam (Expanded) Exam General: Alert and Oriented x3 Dental: WNL Mouth Opening: Greater than 4 Fingerbreadths Neck Mobility: Normal Mallampati classification: II Thyromental Distance: greater than 6 cm Respiratory: Lungs clear Cardiovascular: Regular rate, Normal S1 and Normal S2 Plan Problem List (1) Sepsis: Plan: Elevated WBC count with fatigue. She has not been running fevers. She is about 10 days post her last chemo tx for breast cancer. WBC24. I will recheck WBC in the AM. I have ordered a lactic acid level. ED has ordered UA, but not yet collected. Potential sources for her sepsis could be her duodenal inflammation, her indwelling chemo port, or her urine. ED has ordered blood cultures, one set from the port. I will followup on these results. I am starting her on broad spectrum abx to cover for skin and intraabdominal sources (vanc and zosyn) Discussed with ESTELA Gonzalez and decision was made to admit based on this sepsis of unknown origin for broad spectrum abx, monitoring of WBC and vital signs. She will be admitted to inpatient status as I believe she will be here for >2 MN. Qualifiers: Sepsis type: sepsis due to unspecified organism Severe sepsis shock status: without septic shock (2) Upper GI bleed: Plan: Patient reports large volume melena at home. She does have a decrease in her hemoglobin that is quite gradual. I will monitor for decreasing Hgb, hypotension, tachycardia. 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 I will place her on BID PPI, Carafate, clear liquid diet. I will check Hgb in the AM. She has not had any additional melena since arriving at the ED Laboratory Tests 08/27/24 09/13/24 10/04/24 13:45 07:45 08:44 Hgb 14.8 15.3 13.2 10/25/24 11/14/24 11/26/24 08:22 08:14 12:09 Hgb 13.0 12.5 12.0 (3) Duodenitis: Plan: CT abdomen shows duodenal inflammation. Patient denies N/V but does have very poor appetite. she denies h/o GERD, she has not been having any back pain. I think this could be the cause of her GIB. I will treat with above listed measures for GIB. If her HGB drops, will proceed for EGD per Dr Em. (4) Hypokalemia: Plan: Will replete this evening. I have ordered repeat BMP for the AM> (5) Left femoral vein DVT: Plan: s/p DVT related to COVID infection in 2020. She has been on Xarelto since that time. She does not have any other h/o thrombo embolic events. She is actively being treated for cancer, so certainly has that risk. I am currently holding her Xarelto as well as chemical DVT prophy due to bleeding risk at this time. Qualifiers: Chronicity: chronic Qualified Code(s): I82.512 - Chronic embolism and thrombosis of left femoral vein (6) Breast cancer, right: Plan: 02/03 chemo tx completed. Then plans to have lumpectomy with Dr Chino in [place]. After that she will have immunotherapy through the [facility] [place]. She has done well overall with her treatment. Qualifiers: Breast location: lower outer quadrant of breast Estrogen receptor status: positive Patient sex: female Qualified Code(s): C50.511 - Malignant neoplasm of lower-outer quadrant of right female breast; Z17.0 - Estrogen receptor positive status [ER+] (7) High blood pressure: Plan: holding OP meds. hypotensive on presentation today. fluid responsive. Plan I have spent 80 minutes in the care of this patient today. This includes time [id number], review and ordering of diagnostic imaging and laboratory studies and consultation with other providers.. Monitoring the patient's signs symptoms, evaluation of medication effectiveness and patient's response to treatment. Plan Anesthesia Type: Total IV Consent for Procedure(s) Verified and Reviewed: Yes Code Status: Attempt Resuscitation ASA Classification ASA classification: 3-Severe systemic disease Is this case an emergency?: Yes
[2024-11-27] MEDS ORDERED: PROPOFOL 500 MG/50 ML 500 MG/50 ML VIAL ONE (11:54)
[2024-11-27] MEDS ORDERED: LIDOCAINE-MPF 2% 5 ML VIAL ONE (11:55)
--- NOTE | 2024-11-27 12:14 | PHARMACY PROGRESS NOTE ---
Best Possible Medication History Admit Date and Time: 11/26/24 1839 Home Medications Medication Instructions Recorded Confirmed Type escitalopram oxalate 20 mg tablet 20 mg PO DAILY 08/27/24 11/27/24 History gabapentin 100 mg capsule 100 mg PO DAILY 08/27/24 11/27/24 History latanoprost 0.005 % eye drops 1 drp ophthalmic (eye) DAILY 08/27/24 11/27/24 History lisinopril 20 mg tablet 20 mg PO DAILY PRN hypertension 08/27/24 11/27/24 History ondansetron HCl 8 mg tablet 8 mg PO TID PRN nausea and vomiting 11/27/24 11/27/24 History prochlorperazine maleate 10 mg 10 mg PO TID PRN nausea and 11/27/24 11/27/24 History tablet (Compazine) vomiting rivaroxaban 20 mg tablet (Xarelto) 20 mg PO QPM 11/27/24 11/27/24 History Medications reviewed in ED?: Yes Medication History completed: Yes Patient Interview: Completed Secondary Source(s): Pharmacy records and Insurance records [facility] Statement: As the person ultimately responsible for medication therapy, providers are able to order a medication from an existing home medication list in [facility] via the "Reconcile Routine" prior to Confirmation of that medication by it support specialist. Such practice is discouraged except when the physician, in their clinical judgment, deems that a medical need exists for a medication without regard to previous use.
[2024-11-27] MEDS ORDERED: PHENYLEPHRINE HCL 0.5 MG/5 ML AMPULE ONE (12:47)
[2024-11-27] MEDS ORDERED: ePHEDrine 50 MG/ML VIAL IVP PRN (13:04)
[2024-11-27] MEDS ORDERED: ATROPINE ABBOJECT 1 MG/10 ML SYRINGE IVP PRN (13:04)
[2024-11-27] MEDS ORDERED: MORPHINE 2 MG/ML CARPUJECT IVP PRN (13:04)
[2024-11-27] MEDS ORDERED: METOCLOPRAMIDE 10 MG/2 ML VIAL IVP PRN (13:04)
[2024-11-27] MEDS ORDERED: ONDANSETRON 4 MG/2 ML VIAL IVP PRN (13:04)
[2024-11-27] MEDS ORDERED: HYDROmorphone 0.5 MG/0.5 ML SYRINGE IVP PRN (13:04)
[2024-11-27] MEDS ORDERED: fentaNYL 100 MCG/2 ML VIAL IVP PRN (13:04)
[2024-11-27] MEDS ORDERED: NALOXONE 0.4 MG/ML VIAL IVP PRN (13:04)
--- NOTE | 2024-11-27 14:00 | ANESTHESIA POST OP EVALUATION ---
Anesthesia Post Eval Post Anesthesia Eval Vitals: Last Vital Signs Temp 36.6 C 11/27/24 13:28 Pulse 120 H 11/27/24 13:28 Resp 18 11/27/24 13:28 BP 130/84 11/27/24 13:28 Pulse Ox 95 11/27/24 13:28 CV Function Including HR & BP: Stable and Additional Therapies Ordered (patient continues in afib 130-140's, spoke with Amie PALMER, to be put on Tele and she will work on rate control. ) Pain Control: Satisfactory Nausea & Vomiting: Negative Mental Status: Baseline Respiratory Status: Airway Patent Hydration Status: Satisfactory Anesthesia Complications: None
[2024-11-27] MEDS: LACTATED RINGERS 1,000 ML IV SCH (14:33)
[2024-11-27] MEDS: SUCRALFATE 1 GM/10 ML UDC PO SCH (17:28)
--- NOTE | 2024-11-27 19:05 | PROVIDER PROGRESS NOTE ---
Subjective Prog Note Date Prog Note Date: 11/27/24 Subjective Subjective: already feeling better this evening. She is tolerating a diet, and has more of an appetite. Current Medications Current Medications Current Medications: Current Medications Generic Name Dose Route Start Last Admin Trade Name Freomar PRN Reason Stop Dose Admin Acetaminophen 650 mg 11/26/24 19:10 Acetaminophen 325 Mg Tablet PO Q4HR PRN Pain 1 to 4, or Fever Escitalopram Oxalate 20 mg 11/26/24 19:10 11/27/24 08:09 Escitalopram 10 Mg Tablet PO 20 mg DAILY NATALIYA Administration Famotidine 20 mg 11/26/24 21:00 11/27/24 08:09 Famotidine 20 Mg/2 Ml Vial IVP 20 mg BID NATALIYA Administration Gabapentin 100 mg 11/26/24 19:10 11/27/24 08:09 Gabapentin 100 Mg Capsule PO 100 mg DAILY NATALIYA Administration Heparin Sodium (Beef Lung) 300 - 500 unit 11/26/24 21:22 11/27/24 08:09 Heparin Flush 500 Units/5 Ml Syringe IVP 300 unit PRN PRN Administration Port Protocol (>24 hours) Heparin Sodium (Beef Lung) 30 - 50 unit 11/26/24 21:22 Heparin Flush 50 Units/5 Ml Syringe IVP PRN PRN Port Protocol (<24 hours) Piperacillin Sod/Tazobactam 100 mls @ 200 mls/hr 11/26/24 22:00 11/27/24 15:15 Sod 3.375 gm/ Sodium Chloride IV Infused TID NATALIYA Infusion Lactated Ringer's 1,000 mls @ 100 mls/hr 11/27/24 14:00 11/27/24 14:33 Lr IV 11/27/24 23:59 100 mls/hr .Q10H NATALIYA Administration Latanoprost 1 drops 11/26/24 19:10 11/27/24 08:10 Latanoprost 0.005% Ophth Drops EACHEYE 1 drops DAILY NATALIYA Administration Ondansetron HCl 4 mg 11/26/24 19:10 11/27/24 17:30 Ondansetron 4 Mg/2 Ml Vial IVP 4 mg Q6HR PRN Administration Nausea / Vomiting Oxycodone HCl 5 mg 11/26/24 19:10 Oxycodone 5 Mg Tablet PO Q4HR PRN Pain 8 to 10 Pantoprazole Sodium 40 mg 11/26/24 18:39 11/27/24 08:09 Pantoprazole 40 Mg Vial IVP 40 mg BID NATALIYA Administration Prochlorperazine Edisylate 10 mg 11/26/24 19:10 Prochlorperazine 10 Mg/2 Ml Vial IVP Q6HR PRN Nausea / Vomiting Sodium Chloride 10 ml 11/26/24 19:10 Sodium Chloride Flush 0.9% 10 Ml Syringe IVP PRN PRN NEEDED PER PROVIDER ORDERS Sodium Chloride 10 ml 11/27/24 01:00 11/27/24 17:28 Sodium Chloride Flush 0.9% 10 Ml Syringe IVP 10 ml 0100,0900,1700 NATALIYA Administration Sucralfate 1 gm 11/26/24 22:00 11/27/24 17:28 Sucralfate 1 Gm/10 Ml Udc PO 1 gm 0700,1100,1600,2200 NATALIYA Administration Sucralfate 1 gm 11/27/24 16:00 11/27/24 17:28 Sucralfate 1 Gm/10 Ml Udc PO 1 gm 0700,1100,1600,2200 NATALIYA Administration Objective Vital Signs/Intake & Output Reviewed Vital Signs: Yes Vital Signs: Vital Signs x48h Temp Pulse Pulse Resp BP BP Pulse Ox 11/27/24 16:00 36.9 C 95 18 123/66 95 11/27/24 15:00 36.9 C 146 H 24 128/65 98 11/27/24 14:58 36.7 C 109 H 16 117/76 96 11/27/24 13:58 36.6 C 72 16 146/69 H 96 11/27/24 13:28 36.6 C 120 H 18 130/84 95 11/27/24 13:05 36.5 C 123 H 24 107/73 97 11/27/24 13:00 85 19 109/88 97 11/27/24 12:55 105 H 24 105/68 96 Intake & Output: Intake & Output 11/24/24 11/25/24 11/26/24 11/27/24 23:59 23:59 23:59 23:59 Intake Total 2610 / 2610 1250 / 1250 Balance 2610 / 2610 1250 / 1250 Weight (kg) 106 kg Objective General Appearance: positive No acute distress and Alert Eyes Bilateral: positive Normal inspection and PERRL ENT: positive ENT inspection nml Neck: positive Nml inspection Respiratory: positive Chest non-tender and Other (port is non tender, no cellulitis surrounding) Cardiovascular: positive Other (irregularly irregular. ) Abdomen: positive Non-tender and No distention Skin: positive Color nml and No rash Extremities: positive Non-tender and No pedal edema Neurologic/Psychiatric: positive Oriented x3 Lab Results 11/27/24 05:33 11/27/24 05:33 Other Labs: Lab Results x24hrs 11/27/24 11/27/24 11/26/24 Range/Units 05:33 01:25 18:27 WBC 19.5 H (4.8-10.8) x10^3/uL RBC 3.49 L (4.20-5.40) 10^6/uL Hgb 10.5 L (12.0-16.0) g/dL Hct 32.5 L (37.0-47.0) % MCV 93.1 (81.0-99.0) fL MCH 30.1 (27.0-31.0) pg MCHC 32.3 (32.0-36.0) g/dL RDW 17.1 H (12.0-15.0) % Plt Count 150 (130-450) 10^3/uL MPV 10.1 (7.9-10.8) fL Neut # (Auto) 15.1 H (1.5-6.6) 10^3/uL Lymph # (Auto) 2.7 (1.5-3.5) 10^3/uL [place] # (Auto) 1.3 H (0.0-1.0) 10^3/uL Eos # (Auto) 0.0 (0.0-0.7) 10^3/uL Baso # (Auto) 0.1 (0.0-0.1) 10^3/uL Absolute Nucleated RBC 0.03 x10^3/uL Nucleated RBC % 0.2 /100WBC Sodium 142 (135-145) mmol/L Potassium 3.1 L (3.5-4.5) mmol/L Chloride 109 (101-111) mmol/L Carbon Dioxide 24 (21-32) mmol/L Anion Gap 9.0 (6-13) BUN 11 (6-20) mg/dL Creatinine 0.7 (0.6-1.3) mg/dL Estimated GFR (MDRD) 82 L (>89) Glucose 69 L (74-104) mg/dL Lactic Acid 1.2 (0.5-2.2) mmol/L Calcium 7.7 L (8.5-10.3) mg/dL Urine Color YELLOW Urine Clarity CLEAR (CLEAR) Urine pH 6.0 (5.0-7.5) PH Ur Specific [place] 1.020 (1.002-1.030) Urine Protein TRACE (NEGATIVE) mg/dL Urine Glucose (UA) NEGATIVE (NEGATIVE) mg/dL Urine Ketones 40 H (NEGATIVE) mg/dL Urine Occult Blood NEGATIVE (NEGATIVE) Urine Nitrite NEGATIVE (NEGATIVE) Urine Bilirubin NEGATIVE (NEGATIVE) Urine Urobilinogen 0.2 (NORMAL) (NORMAL) E.U./dL Ur Leukocyte Esterase NEGATIVE (NEGATIVE) Ur Microscopic Review NOT INDICATED Urine Culture Comments NOT INDICATED Sepsis Event Note (H) Evaluation Current Stage of Sepsis: Sepsis Possible source of Sepsis: positive GI tract/intra-abdominal and Skin/soft tissue Sepsis Criteria Sepsis Criteria: WBC count greater than 12,000 or less than 4000 Assessment/Plan Problem List (1) Sepsis: Impression: 11/26: White blood cell count is coming down 19.5 she has not run any fevers. Lactate on admission was negative I have not repeated this as there has been a no indication. Urinalysis shows ketones but is otherwise negative. I think the most likely source of her sepsis is her duodenal inflammation. Blood cultures are showing no growth after 1 day. I will de-escalate from vancomycin as I have an obvious source and blood cultures without skin marlena I will check CBC in AM. on admission:Elevated WBC count with fatigue. She has not been running fevers. She is about 10 days post her last chemo tx for breast cancer. WBC24. I will recheck WBC in the AM. I have ordered a lactic acid level. ED has ordered UA, but not yet collected. Potential sources for her sepsis could be her duodenal inflammation, her indwelling chemo port, or her urine. ED has ordered blood cultures, one set from the port. I will followup on these results. I am starting her on broad spectrum abx to cover for skin and intraabdominal sources (vanc and zosyn) Qualifiers: Sepsis type: sepsis due to unspecified organism Severe sepsis shock status: without septic shock (2) Upper GI bleed: Impression: EGD by Dr. Em today showed duodenal inflammation. She was started on Carafate and twice daily proton pump inhibitor at the time of admission. We will continue with Carafate 4 times daily and proton pump inhibitor. Biopsies are pending at this time. Patient states she had 1 melanotic stool yesterday evening but her stool is clearing she had 1 soft brown stool this afternoon. I think it is reasonable to restart her Xarelto on 11/28. Discussed today with dr Em post EGD. patient was educated on her diagnosis, and how to take Carafate on discharge. (3) Duodenitis: Impression: See above. Duodenal inflammation was seen on EGD. Treat with Carafate and proton pump inhibitor (4) Hypokalemia: Impression: Repleted with 40 mill equivalents of potassium IV on admission this morning she was given an additional 40 mill equivalents of potassium p.o. I will recheck potassium level in the AM. Laboratory Tests 11/26/24 11/27/24 12:09 05:33 Potassium 2.8 L 3.1 L (5) Left femoral vein DVT: Impression: This was a provoked DVT by a COVID infection in 2020. She has been on Xarelto since that time. Given that she has a current active cancer diagnosis I would not take her off of anticoagulation at this time. We will restart Xarelto on hospital day 3.I have her currently on mechanical DVT prophylaxis only Qualifiers: Chronicity: chronic Qualified Code(s): I82.512 - Chronic embolism and thrombosis of left femoral vein (6) Breast cancer, right: Impression: 02/03 chemo tx completed. Then plans to have lumpectomy with Dr Chino in [place]. After that she will have immunotherapy through the [facility] [place]. She has done well overall with her treatment. Qualifiers: Breast location: lower outer quadrant of breast Estrogen receptor status: positive Patient sex: female Qualified Code(s): C50.511 - Malignant neoplasm of lower-outer quadrant of right female breast; Z17.0 - Estrogen receptor positive status [ER+] (7) High blood pressure: Impression: She takes lisinopril 20 mg a day at home for blood pressure. We have a new finding of atrial fibrillation this hospitalization. I am not quite sure how long this has been going on. I am going to give her metoprolol for rate control overnight and consider discharging her to home on metoprolol in addition to her anticoagulation which is already in place for history of DVT.Selected Entries 11/27/24 13:58 11/27/24 14:58 11/27/24 15:00 Blood Pressure [Right Brachial artery] 146/69 H 117/76 128/65 11/27/24 16:00 Blood Pressure [Right Brachial artery] 123/66 (8) Atrial fibrillation: Impression: New diagnosis. She had an echocardiogram in August 2024 at this institution which showed mild left ventricular enlargement with normal wall thickness and an ejection fraction of 55 to 60% the right ventricle was normal in size and function and there was no significant valvular disease. Telemetry shows atrial fibs with RVR with a maximum heart rate around 120. 1 episode of 146. I will start the patient on metoprolol tartrate 12.5mg BID, and PRN IV metoprolol for heart rate exceeding 120 with holding parameters I have spent 55 minutes in the care of this patient today. This includes time [id number], review and ordering of diagnostic imaging and laboratory studies and consultation with other providers.. Monitoring the patient's signs symptoms, evaluation of medication effectiveness and patient's response to treatment.
[2024-11-27] MEDS: METOPROLOL TARTRATE 25 MG TABLET PO SCH (21:22)
[2024-11-27] MEDS: METOPROLOL 5 MG/5 ML VIAL IVP PRN (22:06)
[2024-11-28 05:49] LABS: BASOPHILS # (AUTO) 0.1 10^3/uL (0.0-0.1); BASOPHILS % (AUTO) 0.5 %; EOSINOPHILS % (AUTO) 0.1 %; HGB - HEMOGLOBIN 10.5 g/dL (12.0-16.0); LYMPHOCYTES % (AUTO) 16.8 %; MEAN CORPUSCULAR HEMOGLOBIN 29.8 pg (27.0-31.0); MEAN CORPUSCULAR HGB CONC 31.8 g/dL (32.0-36.0); MEAN CORPUSCULAR VOLUME 93.8 fL (81.0-99.0); MEAN PLATELET VOLUME 10.8 fL (7.9-10.8); MONOCYTES # (AUTO) 1.1 10^3/uL (0.0-1.0); MONOCYTES % (AUTO) 9.4 %; NEUTROPHILS # (AUTO) 8.6 10^3/uL (1.5-6.6); NEUTROPHILS % (AUTO) 71.6 %; NRBC ABSOLUTE COUNT (AUTO) 0.02 x10^3/uL; NUCLEATED RED BLOOD CELLS AUTO 0.2 /100WBC; PLT - PLATELET COUNT 129 10^3/uL (130-450); RED BLOOD COUNT 3.52 10^6/uL (4.20-5.40); RED CELL DISTRIBUTION WIDTH 17.1 % (12.0-15.0); WHITE BLOOD COUNT 11.9 x10^3/uL (4.8-10.8)
[2024-11-28 06:05] LABS: CREATININE 0.7 mg/dL (0.6-1.3); POTASSIUM 3.1 mmol/L (3.5-4.5)
--- NOTE | 2024-11-28 08:17 | PROVIDER PROGRESS NOTE ---
Subjective General Admit Date: 11/26/24 Other Other Information/Narrative: Patient denies pain, was able to eat some soup last night and wants to try some breakfast this morning. She still doesn't have much of an appetite,but also is not feeling the food aversion she was at the time of presentation. No n/v. No f/c Review of Systems Status of ROS: 10 or more systems reviewed and unremarkable except as noted in history and below Exam Exam GEN: No acute distress alert and oriented CV: irregularly irregular rhythm, tachycardic PULM: non labored, on RA ABD: soft, obese, non tender to superficial or deep palpation, no rebound or guarding Impression/Plan Problem List (1) Sepsis: Qualifiers: Sepsis type: sepsis due to unspecified organism Severe sepsis shock status: without septic shock (2) Upper GI bleed: (3) Duodenitis: (4) Hypokalemia: (5) Left femoral vein DVT: Qualifiers: Chronicity: chronic Qualified Code(s): I82.512 - Chronic embolism and thrombosis of left femoral vein (6) Breast cancer, right: Qualifiers: Breast location: lower outer quadrant of breast Estrogen receptor status: positive Patient sex: female Qualified Code(s): C50.511 - Malignant neoplasm of lower-outer quadrant of right female breast; Z17.0 - Estrogen receptor positive status [ER+] (7) High blood pressure: (8) Atrial fibrillation: Problem List Comment Problem List: 1. GI bleed, duodenitis - hgb stable for 24 hours - ok to restart home xarelto - I recommend patient continue BID PPI, QID carafate while on chemo. - H pylori pending - tolerating liquids, adat to regular diet. Patient encouraged to use protein shakes while appetite is low. - ok to discharge from surgery standpoint, when medically stable Surgery will continue to follow.
[2024-11-28] MEDS: POTASSIUM CHLORIDE 20 MEQ TABLET PO ONE (11:01)
--- NOTE | 2024-11-28 13:33 | PROVIDER PROGRESS NOTE ---
<Statement entered by Jamie Timmons DNP - 11/28/24 17:09> Patient was seen and examined by me with a separate encounter after being seen by VICTOR M student. I reviewed the student's documentation including patient history, physical examination, laboratory, imaging, clinical assessment and treatment plan. I have discussed the management of the patient with the student, and with the patient. There are no changes. Patient was seen by PA student. Decision to discharge was made after his note. Please see discharge summary for any updates to plan Subjective Prog Note Date Prog Note Date: 11/28/24 Prog Note Time: 12:27 Subjective Pt reports feeling: Improved Subjective: Sena was awake and alert all day today. She had multiple questions about understanding A-fib treatment, anti-coagulation, PPIs and cytoprotectants, chemo, and her next medical steps. She is more than previous days but less than she usually does, she states that she feel full quickly and "doesn't want to push it," but also denies any nausea, vomiting. She denies all abdominal pain and denies dark, bloody, tar-like, or grease stools. She has returned to a solid food diet, vegetarian, and will be restarting her DOAC (Xarelto) PO to return to her home meds. Current Medications Current Medications Current Medications: Current Medications Generic Name Dose Route Start Last Admin Trade Name Freq PRN Reason Stop Dose Admin Acetaminophen 650 mg 11/26/24 19:10 Acetaminophen 325 Mg Tablet PO Q4HR PRN Pain 1 to 4, or Fever Escitalopram Oxalate 20 mg 11/26/24 19:10 11/28/24 08:35 Escitalopram 10 Mg Tablet PO 20 mg DAILY NATALIYA Administration Famotidine 20 mg 11/28/24 21:00 Famotidine 20 Mg Tablet PO BID NATALIYA Gabapentin 100 mg 11/26/24 19:10 11/28/24 08:35 Gabapentin 100 Mg Capsule PO 100 mg DAILY NATALIYA Administration Heparin Sodium (Beef Lung) 300 - 500 unit 11/26/24 21:22 11/27/24 08:09 Heparin Flush 500 Units/5 Ml Syringe IVP 300 unit PRN PRN Administration Port Protocol (>24 hours) Heparin Sodium (Beef Lung) 30 - 50 unit 11/26/24 21:22 Heparin Flush 50 Units/5 Ml Syringe IVP PRN PRN Port Protocol (<24 hours) Piperacillin Sod/Tazobactam 100 mls @ 25 mls/hr 11/26/24 22:00 11/28/24 07:06 Sod 3.375 gm/ Sodium Chloride IV Infused TID NATALIYA Infusion Latanoprost 1 drops 11/26/24 19:10 11/28/24 08:33 Latanoprost 0.005% Ophth Drops EACHEYE 1 drops DAILY NATALIYA Administration Metoprolol Tartrate 12.5 mg 11/27/24 21:00 11/28/24 08:35 Metoprolol Tartrate 25 Mg Tablet PO 12.5 mg BID NATALIYA Administration Metoprolol Tartrate 5 mg 11/27/24 19:15 11/27/24 22:06 Metoprolol 5 Mg/5 Ml Vial IVP 5 mg Q6H PRN Administration Tachycardia Ondansetron HCl 4 mg 11/26/24 19:10 11/27/24 17:30 Ondansetron 4 Mg/2 Ml Vial IVP 4 mg Q6HR PRN Administration Nausea / Vomiting Oxycodone HCl 5 mg 11/26/24 19:10 Oxycodone 5 Mg Tablet PO Q4HR PRN Pain 8 to 10 Pantoprazole Sodium 40 mg 11/28/24 16:00 Pantoprazole 40 Mg Tablet PO BIDAC NATALIYA Prochlorperazine Edisylate 10 mg 11/26/24 19:10 Prochlorperazine 10 Mg/2 Ml Vial IVP Q6HR PRN Nausea / Vomiting Sodium Chloride 10 ml 11/26/24 19:10 Sodium Chloride Flush 0.9% 10 Ml Syringe IVP PRN PRN NEEDED PER PROVIDER ORDERS Sodium Chloride 10 ml 11/27/24 01:00 11/28/24 08:36 Sodium Chloride Flush 0.9% 10 Ml Syringe IVP 10 ml 0100,0900,1700 NATALIYA Administration Sucralfate 1 gm 11/27/24 16:00 11/28/24 11:02 Sucralfate 1 Gm/10 Ml Udc PO 1 gm 0700,1100,1600,2200 NATALIYA Administration Objective Vital Signs/Intake & Output Reviewed Vital Signs: Yes Vital Signs: Vital Signs x48h Temp Pulse Pulse Resp BP BP Pulse Ox 11/28/24 08:35 106 H 127/75 11/28/24 08:17 36.8 C 89 20 127/75 97 Intake & Output: Intake & Output 11/25/24 11/26/24 11/27/24 11/28/24 23:59 23:59 23:59 23:59 Intake Total 2610 / 2610 2450 / 2450 560 / 560 Balance 2610 / 2610 2450 / 2450 560 / 560 Weight (kg) 106 kg Objective General Appearance: positive No acute distress and Alert Eyes Bilateral: positive Normal inspection and PERRL ENT: positive ENT inspection nml Neck: positive Nml inspection and No JVD Respiratory: positive Chest non-tender, No respiratory distress, Breath sounds nml and Other (presence of central line, non-tender no erythema ) Cardiovascular: positive Irregularly irregular and Tachycardia Abdomen: positive Non-tender Skin: positive Warm and Dry Extremities: positive Non-tender, Full ROM and Nml appearance Neurologic/Psychiatric: positive Oriented x3 Lab Results 11/28/24 05:01 11/28/24 05:01 Other Labs: Lab Results x24hrs 11/28/24 Range/Units 05:01 WBC 11.9 H (4.8-10.8) x10^3/uL RBC 3.52 L (4.20-5.40) 10^6/uL Hgb 10.5 L (12.0-16.0) g/dL Hct 33.0 L (37.0-47.0) % MCV 93.8 (81.0-99.0) fL MCH 29.8 (27.0-31.0) pg MCHC 31.8 L (32.0-36.0) g/dL RDW 17.1 H (12.0-15.0) % Plt Count 129 L (130-450) 10^3/uL MPV 10.8 (7.9-10.8) fL Neut # (Auto) 8.6 H (1.5-6.6) 10^3/uL Lymph # (Auto) 2.0 (1.5-3.5) 10^3/uL [place] # (Auto) 1.1 H (0.0-1.0) 10^3/uL Eos # (Auto) 0.0 (0.0-0.7) 10^3/uL Baso # (Auto) 0.1 (0.0-0.1) 10^3/uL Absolute Nucleated RBC 0.02 x10^3/uL Nucleated RBC % 0.2 /100WBC Sodium 143 (135-145) mmol/L Potassium 3.1 L (3.5-4.5) mmol/L Chloride 110 (101-111) mmol/L Carbon Dioxide 27 (21-32) mmol/L Anion Gap 6.0 (6-13) BUN 8 (6-20) mg/dL Creatinine 0.7 (0.6-1.3) mg/dL Estimated GFR (MDRD) 82 L (>89) Glucose 80 (74-104) mg/dL Calcium 8.0 L (8.5-10.3) mg/dL ABX Reporting Has patient been on IV antibiotics over the past 48 hours?: Yes Sepsis Event Note (H) Evaluation Current Stage of Sepsis: Sepsis Possible source of Sepsis: positive GI tract/intra-abdominal and Skin/soft tissue Sepsis Criteria Sepsis Criteria: WBC count greater than 12,000 or less than 4000 Assessment/Plan Problem List (1) Sepsis: Impression: on admission: Elevated WBC count with fatigue, no fever: WBC24. 11/26 CT Abdomen pelvis W: Duodenitis with question of a medially directed second portion of the duodenum ulcer. Inflammatory change in the subjacent fat. Broad spectrum IV abx to cover for skin and intrabdominal sources Currently on piperacillin/Tazobactam IV NPO --> Low fiber diet (11/27) Pantoprazole to reduce duodenum irritation and inflammation and Carafate for cytoprotection Qualifiers: Sepsis type: sepsis due to unspecified organism Severe sepsis shock status: without septic shock (2) Upper GI bleed: Impression: EGD by Dr. Em on 11/26 showed duodenal inflammation. Denies melena stools for >24h. Taken off NPO and will start home PO Xarelto today. (3) Duodenitis: Impression: Resolving. Duodenal inflammation was seen on EGD 11/26. Treated with Carafate and proton pump inhibitor (4) Hypokalemia: Impression: Serum K remained at 3.1 for the last 48 h. Consider Potassium Chloried [K-dur] PO supplement Laboratory Tests 11/14/24 11/26/24 11/27/24 08:14 12:09 05:33 Potassium 3.2 L 2.8 L 3.1 L 11/28/24 05:01 Potassium 3.1 L (5) Atrial fibrillation: Impression: New diagnosis. She had an echocardiogram in August 2024 at this institution which showed mild left ventricular enlargement with normal wall thickness and an ejection fraction of 55 to 60% the right ventricle was normal in size and function and there was no significant valvular disease. Telemetry shows atrial fibs with RVR with a maximum heart rate around 120. 1 episode of 146. She was placed on metoprolol tartrate 12.5mg BID, and PRN IV metoprolol for heart rate exceeding 120 with holding parameters Continue home DOAC Xarelto today and consider home PO Metoprolol for rate control. She was advised to consult her PCP and ask for a cardio referal for further evaluation
[2024-11-28 14:12] VITALS: O2SAT 96
[2024-11-28 15:37] VITALS: BP 119/78; TEMP 98.1
--- NOTE | 2024-11-28 15:40 | Discharge Summary ---
"Discharge Summary Admit Date: 11/26/24 Discharge Date: 11/28/24 Discharging Provider: Jamie Timmons NP Primary Care Provider: Jacques Brown Code Status: Attempt Resuscitation DIAGNOSES Admission Diagnoses: Sepsis Upper GI bleed Duodenitis Hypokalemia Left femoral vein DVT Breast cancer Hypertension Discharge Diagnoses with Status of Each Condition: Sepsisresolved Upper GI bleedresolved Duodenitisactive Hypokalemiaactive Left femoral vein DVTchronic Breast cancerchronic Hypertensionchronic HPI History of Present Illness: 74-year-old female who presents to the emergency department with complaints of melena for about 3 days. She has had fatigue and generalized weakness for several weeks. She is 4 out of 6 sessions into her chemotherapy treatment for breast cancer. She is also noted in the last several days not nausea but absolutely no appetite. None of the symptoms are the usual things that she gets after her chemotherapy treatments. Her last chemotherapy treatment was approximately 10 days ago. She has not had any vomiting she has had large volume dark stools. She has not had any cough she has not been running any fever she does not have any chest pain she denies abdominal pain she denies back pain she is not having any extremity swelling. She has a past medical history of DVT related to COVID infection in 2020.She has been on Xarelto since that time. That is her only lifetime episode of thromboembolic event She has a past surgical history of hysterectomy She does not smoke she does not drink alcohol she lives with her in [place] and they have large group of very supportive friends. Her PCP is Dr. Brown her onc[place]. Indra [place] [facility] [place] is Dr. Chaz Chino in [place]. She endorses full CODE STATUS. She think she has a POLST somewhere but she is not quite sure. her is her surrogate decision maker. CONSULTS | PROCEDURES Consultations: General surgery HOSPITAL COURSE Hospital Course: She was admitted to the hospital and started on twice daily PPI as well as Carafate and Pepcid. Her hemoglobin remained stable for greater than 24 hours. She underwent EGD with no active bleeding. EGD did show duodenitis. Surgery recommended discharge with PPI and Carafate. Biopsies for H. pylori are pending. Her WBC improved overnight, she will be discharged with a course of Augmentin ALLERGIES Allergies Allergy/AdvReac Type Severity Reaction Status Date / Time No Known Drug Allergies Allergy Verified 11/26/24 11:25 MEDICATIONS Ambulatory Orders Medication Instructions Recorded Confirmed escitalopram oxalate 20 mg tablet 20 mg PO DAILY 08/27/24 11/27/24 gabapentin 100 mg capsule 100 mg PO DAILY 08/27/24 11/27/24 latanoprost 0.005 % eye drops 1 drp ophthalmic (eye) DAILY 08/27/24 11/27/24 lisinopril 20 mg tablet 20 mg PO DAILY PRN hypertension 08/27/24 11/27/24 ondansetron HCl 8 mg tablet 8 mg PO TID PRN nausea and vomiting 11/27/24 11/27/24 prochlorperazine maleate 10 mg 10 mg PO TID PRN nausea and 11/27/24 11/27/24 tablet (Compazine) vomiting rivaroxaban 20 mg tablet (Xarelto) 20 mg PO QPM 11/27/24 11/27/24 amoxicillin 875 mg-potassium 1 tab PO BID 10 days #20 tabs 11/28/24 clavulanate 125 mg tablet metoprolol tartrate 25 mg tablet 12.5 mg (1/2 x 25 mg) PO BID 30 11/28/24 days #30 tabs pantoprazole 40 mg tablet,delayed 40 mg PO BIDAC 30 days #60 tabs 11/28/24 release sucralfate 1 gram tablet 1 g PO QID #60 tabs 11/28/24 PHYSICAL EXAM AT DISCHARGE General Appearance: positive No acute distress and Alert Eyes Bilateral: positive Normal inspection and PERRL Neck: positive Nml inspection and No JVD Respiratory: positive Breath sounds nml Cardiovascular: positive Regular rate & rhythm Peripheral Pulses: positive 2+ Abdomen: positive Non-tender Back: positive Nml inspection Skin: positive Color nml Extremities: positive Non-tender Neurologic/Psychiatric: positive Oriented x3 LABS 11/28/24 05:01 11/28/24 05:01 SEPSIS Current Stage of Sepsis: Sepsis Possible source of Sepsis: GI tract/intra-abdominal and Skin/soft tissue Sepsis Criteria: WBC count greater than 12,000 or less than 4000 FOLLOW UP Follow Up: With PCP within 2 weeks TIME SPENT Time Spent in Discharge (Minutes): 35 Discharge Plan Discharge Patient Disposition: Home, Self Care Condition: Stable Medically Cleared Date:: 11/28/24 Prescriptions: New amoxicillin-pot clavulanate 875-125 mg Tablet 1 tab PO BID 10 Days Qty: 20 0RF metoprolol tartrate 25 mg Tablet 12.5 mg PO BID 30 Days Qty: 30 0RF pantoprazole 40 mg Tablet,Delayed Release (Dr/Ec) 40 mg PO BIDAC 30 Days Qty: 60 0RF sucralfate 1 gram tablet 1 g PO QID Qty: 60 2RF Continued Xarelto 20 mg tablet 20 mg PO QPM Rx Instructions: must administer with evening meal ondansetron HCl 8 mg tablet 8 mg PO TID PRN (Reason: nausea and vomiting) prochlorperazine maleate [Compazine] 10 mg tablet 10 mg PO TID PRN (Reason: nausea and vomiting) escitalopram oxalate 20 mg tablet 20 mg PO DAILY gabapentin 100 mg capsule 100 mg PO DAILY lisinopril 20 mg tablet 20 mg PO DAILY PRN (Reason: hypertension) latanoprost 0.005 % drops 1 drp ophthalmic (eye) DAILY Activity Restrictions: No Restrictions Diet: Regular Health Concerns: You have a history of breast cancer, undergoing chemotherapy. You came in with 3-day history of dark tarry stools as well as fatigue. Your vital signs were concerning for sepsis, so you were initiated on broad-spectrum antibiotics for this. You were seen by a general surgeon, And we held you for 2 nights to watch your blood levels. They remained stable after we initiated some medicines to reduce the effects of acid on your stomach, and the surgeon has signed off on you going home. She recommended that you stay on a proton pump inhibitor such as Protonix twice a day for the duration of your chemotherapy as well as 4 times daily Carafate. I have ordered these medicines to be given outpatient. I would like for you to finish a course of antibiotics. You endorsed to me that you are able to move around as you normally do with a cane. I would like to encourage you to remain active and to reach out to healthcare provider if you start to experience any worsening symptomsr Print Language: South African Patient Instructions: Surgery Anesthesia After Stand Alone Forms: PCP List Follow-up Care: RODRICK BROWN MD [Primary Care Provider] -"
[2024-11-28] MEDS ORDERED: APIXABAN 5 MG TABLET PO SCH ×2 (16:32→21:00)
[2024-11-28] MEDS: AMOX/CLAV 875 MG/125 MG TABLET PO SCH ×2 (16:39→17:27)
[2024-11-28] MEDS: PANTOPRAZOLE 40 MG TABLET PO SCH (16:40)
[2024-11-28] MEDS ORDERED: AMOX/CLAV 875 MG/125 MG TABLET PO SCH (21:00)
[2024-11-28] MEDS ORDERED: FAMOTIDINE 20 MG TABLET PO SCH (21:00)
== END 2024-11-28 17:15 | disposition home or self-care (01) | DRG 871 ==
LOC: ED 11:15 → MS3 18:49
PROVIDERS: ADMIT Physician Assistant Medical; ATTEND Physician Assistant Medical
DX: C50.511 Malignant neoplasm of lower-outer quadrant of right female breast; D72.829 Elevated white blood cell count, unspecified; R53.1 Weakness; R79.1 Abnormal coagulation profile; Z68.34 Body mass index [BMI] 34.0-34.9, adult; Z90.710 Acquired absence of both cervix and uterus; K29.80 Duodenitis without bleeding; K92.1 Melena; Z86.718 Personal history of other venous thrombosis and embolism; R53.83 Other fatigue; I82.512 Chronic embolism and thrombosis of left femoral vein; I48.91 Unspecified atrial fibrillation; I10 Essential (primary) hypertension; A41.9 Sepsis, unspecified organism; R00.0 Tachycardia, unspecified; Z79.01 Long term (current) use of anticoagulants; Z17.0 Estrogen receptor positive status [ER+]; C50.911 Malignant neoplasm of unspecified site of right female breast; K29.81 Duodenitis with bleeding; R63.0 Anorexia; Z86.16 Personal history of COVID-19; E87.6 Hypokalemia

== ENCOUNTER 2025-01-20 12:00 | Inpatient (IN) ==
--- NOTE | 2025-01-20 13:57 | ED Physician Documentation ---
History of Present Illness Stated complaint Stated Complaint: DEHYDRATION,DIARRHEA Chief complaint Chief Complaint: General Additonal information Additional information: 74-year-old female currently being treated for breast cancer presents emergency department for increased weakness generalized malaise and fatigue. Patient says that she is being treated with Dr. Burrell at the [facility] clinic she last had chemo on 01/10 it is very normal for her to feel this fatigue and weakness and appetite changes but she feels like she is having hard time rebounding from this last chemo episode. She says she feels very dehydrated having a hard time waking up and eating or drinking anything due to recent taste changes caused likely by chemo. Patient also has had a couple episodes of diarrhea that she originally thought was getting better but is starting to notice increased diarrhea again today. No abdominal pain no nausea or vomiting. she endorses and some chills but she has not spiked a fever. Patient also states that she is on Eliquis for recent DVT diagnosis she denies any chest pain shortness of breath. Meds/Allgy Home Medications Ambulatory Orders Medication Instructions Recorded Confirmed escitalopram oxalate 20 mg tablet 20 mg PO DAILY 08/27/24 01/09/25 gabapentin 100 mg capsule 100 mg PO DAILY 08/27/24 01/09/25 latanoprost 0.005 % eye drops 1 drp ophthalmic (eye) DAILY 08/27/24 01/09/25 lisinopril 20 mg tablet 20 mg PO DAILY PRN hypertension 08/27/24 01/09/25 rivaroxaban 20 mg tablet (Xarelto) 20 mg PO QPM 11/27/24 01/09/25 amoxicillin 875 mg-potassium 1 tab PO BID 10 days #20 tabs 11/28/24 01/09/25 clavulanate 125 mg tablet metoprolol tartrate 25 mg tablet 12.5 mg (1/2 x 25 mg) PO BID 30 11/28/24 01/09/25 days #30 tabs pantoprazole 40 mg tablet,delayed 40 mg PO BIDAC 30 days #60 tabs 11/28/24 01/09/25 release sucralfate 1 gram tablet 1 g PO QID #60 tabs 11/28/24 01/09/25 nystatin 100,000 unit/gram topical 1 applic topical QID skin 12/20/24 01/09/25 powder infection #30 grams ondansetron HCl 8 mg tablet 8 mg PO TID PRN nausea and 12/21/24 01/09/25 vomiting #90 tabs prochlorperazine maleate 10 mg 10 mg PO TID PRN nausea and 12/21/24 01/09/25 tablet (Compazine) vomiting #90 tabs digoxin 250 mcg (0.25 mg) tablet 250 mcg PO QDAY 01/09/25 01/09/25 empagliflozin 10 mg tablet 10 mg PO QDAY 01/09/25 01/09/25 metoprolol succinate 25 mg 50 mg PO QDAY 01/09/25 01/09/25 tablet,extended release 24 hr Allergies Allergies Allergy/AdvReac Type Severity Reaction Status Date / Time No Known Drug Allergies Allergy Verified 01/20/25 12:33 PFS Active Problems All Active Problems (Updated 01/20/25 @ 21:20 by Mal Reynoso DNP) Leukocytosis (Acute) Acute UTI (Acute) Sepsis (Acute) Cardiomyopathy (Acute) Duodenitis (Acute) Breast cancer, right (Acute) Healthcare maintenance (Acute) Encounter for antineoplastic chemotherapy (Acute) Adenoma of left adrenal gland (Acute) Acute urinary tract infection (Acute) Medical History Medical History (Updated 01/20/25 @ 21:20 by Mal Reynoso DNP) Atrial fibrillation Upper GI bleed 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 Bimalleolar fracture of left ankle Forehead laceration Pneumonia Dehydration Encounter for education about infusion care Left adrenal mass Depression High blood pressure Left ankle injury Surgical History Surgical History H/O: hysterectomy Social History Social History Smoking Status: Never smoker Second hand tobacco smoke exposure: No Do you dip or chew tobacco?: No Do you vape?: No Living arrangement: At home Relationship: Level: Independent Home Mobility Equipment: Crutches Do you feel safe in your home environment?: Yes Suffered physical, verbal, emotional, or financial abuse?: No History of Abuse: No Frequency: Occasional Substance Use: denies use POLST Patient has POLST: No POLST Status: Full Code Results Vitals Vitals: Vital Signs - 24 hr 01/20/25 12:33 01/20/25 13:41 01/20/25 15:29 Temperature 37.1 C 37 C Temperature Source Temporal Artery Scan Temporal Artery Scan Pulse Rate 100 120 H 87 Respiratory Rate 18 22 20 Blood Pressure 106/69 134/75 H 124/81 O2 Saturation 99 98 98 O2 Source Room air Room air Room air Pain Intensity 0 0 01/20/25 17:32 01/20/25 19:00 01/20/25 20:39 Temperature 36.7 C 36.3 C L Temperature Source Oral Oral Pulse Rate 112 H 108 H 93 Respiratory Rate 18 23 18 Blood Pressure 118/65 111/77 106/84 O2 Saturation 94 96 93 O2 Source Room air Room air Room air Pain Intensity 0 Oxygen O2 Source Room air Labs Labs: Laboratory Tests 01/20/25 01/20/25 01/20/25 14:18 15:07 15:30 WBC 32.8 H RBC 4.37 Hgb 12.9 Hct 40.5 MCV 92.7 MCH 29.5 MCHC 31.9 L RDW 16.1 H Plt Count 170 MPV 11.2 H Neut # (Auto) 24.8 H Lymph # (Auto) 2.6 Brewster # (Auto) 2.7 H Eos # (Auto) 0.0 Baso # (Auto) 0.0 Absolute Nucleated RBC 0.02 Band Neuts % (Manual) Not Reportable Abnorm Lymph % (Manual) Not Reportable Nucleated RBC % 0.1 Neutrophils # (Manual) Not Reportable Lymphocytes # (Manual) Not Reportable Monocytes # (Manual) Not Reportable Eosinophils # (Manual) Not Reportable Basophils # (Manual) Not Reportable Differential Comment MANUAL=AUTO DIFF WBC Morphology 1+ SMUDGE CELLS Platelet Estimate NORMAL (130-450,000) Platelet Morphology NORMAL APPEARANCE RBC Morph Micro Appear NORMAL APPEARANCE Sodium 138 Potassium 3.5 Chloride 101 Carbon Dioxide 23 Anion Gap 14.0 H BUN 11 Creatinine 0.7 Estimated GFR (MDRD) 82 L Glucose 113 H Lactic Acid 1.0 Calcium 8.7 Magnesium 1.6 L Total Bilirubin 0.3 AST 26 ALT 14 Alkaline Phosphatase 88 Total Protein 5.9 L Albumin 3.6 Globulin 2.3 Albumin/Globulin Ratio 1.6 Urine Color Urine Clarity Urine pH Ur Specific Brick Urine Protein Urine Glucose (UA) Urine Ketones Urine Occult Blood Urine Nitrite Urine Bilirubin Urine Urobilinogen Ur Leukocyte Esterase Urine RBC Urine WBC Urine WBC Clumps Ur Epithelial Cells Ur Squamous Epith Cells Urine Bacteria Ur Microscopic Review Urine Culture Comments Nasal Adenovirus (PCR) NOT DETECTED Nasal B. parapertussis DNA (PCR) NOT DETECTED Nasal Coronavir 229E PCR NOT DETECTED Nasal Coronavir HKU1 PCR NOT DETECTED Nasal Coronavir NL63 PCR NOT DETECTED Nasal Coronavir OC43 PCR NOT DETECTED Nasal Enterovir/Rhinovir PCR NOT DETECTED Nasal Influenza B PCR NOT DETECTED Nasal Influenza A PCR NOT DETECTED Nasal Parainfluen 1 PCR NOT DETECTED Nasal Parainfluen 2 PCR NOT DETECTED Nasal Parainfluen 3 PCR NOT DETECTED Nasal Parainfluen 4 PCR NOT DETECTED Nasal RSV (PCR) NOT DETECTED Nasal B.pertussis DNA PCR NOT DETECTED Nasal C.pneumoniae (PCR) NOT DETECTED Avery Human Metapneumo PCR NOT DETECTED Nasal M.pneumoniae (PCR) NOT DETECTED Nasal SARS-CoV-2 (PCR) NOT DETECTED 01/20/25 17:00 WBC RBC Hgb Hct MCV MCH MCHC RDW Plt Count MPV Neut # (Auto) Lymph # (Auto) Brewster # (Auto) Eos # (Auto) Baso # (Auto) Absolute Nucleated RBC Band Neuts % (Manual) Abnorm Lymph % (Manual) Nucleated RBC % Neutrophils # (Manual) Lymphocytes # (Manual) Monocytes # (Manual) Eosinophils # (Manual) Basophils # (Manual) Differential Comment WBC Morphology Platelet Estimate Platelet Morphology RBC Morph Micro Appear Sodium Potassium Chloride Carbon Dioxide Anion Gap BUN Creatinine Estimated GFR (MDRD) Glucose Lactic Acid Calcium Magnesium Total Bilirubin AST ALT Alkaline Phosphatase Total Protein Albumin Globulin Albumin/Globulin Ratio Urine Color YELLOW Urine Clarity HAZY Urine pH 6.0 Ur Specific Brick >=1.030 H Urine Protein 30 H Urine Glucose (UA) 100 H Urine Ketones >=80 H Urine Occult Blood NEGATIVE Urine Nitrite NEGATIVE Urine Bilirubin MODERATE H Urine Urobilinogen 0.2 (NORMAL) Ur Leukocyte Esterase TRACE H Urine RBC 0-5 Urine WBC >25 H Urine WBC Clumps PRESENT Ur Epithelial Cells RARE Transitional Ur Squamous Epith Cells RARE Squamous Urine Bacteria Few Ur Microscopic Review INDICATED Urine Culture Comments INDICATED Nasal Adenovirus (PCR) Nasal B. parapertussis DNA (PCR) Nasal Coronavir 229E PCR Nasal Coronavir HKU1 PCR Nasal Coronavir NL63 PCR Nasal Coronavir OC43 PCR Nasal Enterovir/Rhinovir PCR Nasal Influenza B PCR Nasal Influenza A PCR Nasal Parainfluen 1 PCR Nasal Parainfluen 2 PCR Nasal Parainfluen 3 PCR Nasal Parainfluen 4 PCR Nasal RSV (PCR) Nasal B.pertussis DNA PCR Nasal C.pneumoniae (PCR) Avery Human Metapneumo PCR Nasal M.pneumoniae (PCR) Nasal SARS-CoV-2 (PCR) Rads (name of study) 1 view chest x-ray: Relevant Findings:: Final report received and EMP independent interpretat ion of test Interpretation: IMPRESSION: No acute cardiopulmonary process. PD Medical Decision Making ED course Complexity details: reviewed old records, reviewed results, re-evaluated patient, considered differential and d/w patient ED course: 74-year-old female presents to the emergency department for generalized malaise chills concerns of dehydration and weakness. Last chemo was on 01/10. She has been having intermittent diarrhea she felt dehydrated. Labs are complete for further evaluation she has significant leukocytosis, WBC 32.8 last WBC was about 2 weeks ago and it was found to be 7.0. No anemia for the most part normal kidney function mild hypomagnesemia, 1.6 other electrolytes are within normal limits. Urinalysis positive for ketones and trace amount of leukocytes with WBCs patient denies any abdominal pain. She is quite tachycardic in the emergency department and has remained tachycardic despite receiving 2 L of IV fluid she sustains Heart rate in the low teens. She is given some IV Rocephin she technically does meet SIRS and sepsis criteria given her tachycardia and elevated white count 2 sets of blood cultures were collected prior to initiating IV Rocephin and urine has been sent to the lab for cultures as well. Unfortunately we do not have any beds available here in the hospital and so patient will be boarding here in the emergency department overnight until she is able to get inpatient. ED border orders have been placed patient reports after receiving IV fluids and IV antibiotics she does not have any improvement of symptoms still feeling significant malaise and fatigue. Report given to oncoming physician will further manage patient care until a bed opens up. Discharge Plan Discharge Condition: Stable Clinical Impression: Sepsis, Acute UTI, Leukocytosis Prescriptions: No Action ondansetron HCl 8 mg tablet 8 mg PO TID PRN (Reason: nausea and vomiting) Qty: 90 0RF prochlorperazine maleate [Compazine] 10 mg tablet 10 mg PO TID PRN (Reason: nausea and vomiting) Qty: 90 0RF Xarelto 20 mg tablet 20 mg PO QPM Rx Instructions: must administer with evening meal amoxicillin-pot clavulanate 875-125 mg Tablet 1 tab PO BID 10 Days Qty: 20 0RF metoprolol tartrate 25 mg Tablet 12.5 mg PO BID 30 Days Qty: 30 0RF pantoprazole 40 mg Tablet,Delayed Release (Dr/Ec) 40 mg PO BIDAC 30 Days Qty: 60 0RF sucralfate 1 gram tablet 1 g PO QID Qty: 60 2RF escitalopram oxalate 20 mg tablet 20 mg PO DAILY gabapentin 100 mg capsule 100 mg PO DAILY lisinopril 20 mg tablet 20 mg PO DAILY PRN (Reason: hypertension) latanoprost 0.005 % drops 1 drp ophthalmic (eye) DAILY metoprolol succinate 25 mg tablet extended release 24 hr 50 mg PO QDAY digoxin 250 mcg (0.25 mg) tablet 250 mcg PO QDAY empagliflozin 10 mg tablet 10 mg PO QDAY nystatin 100,000 unit/gram powder 1 applic topical QID Qty: 30 1RF Rx Instructions: apply locally every 6 hours x10 days Print Language: Turkmen Stand Alone Forms: PCP List
[2025-01-20 14:28] LABS: BASOPHILS % (AUTO) 0.1 %; HCT - HEMATOCRIT 40.5 % (37.0-47.0); HGB - HEMOGLOBIN 12.9 g/dL (12.0-16.0); LYMPHOCYTES # (AUTO) 2.6 10^3/uL (1.5-3.5); LYMPHOCYTES % (AUTO) 7.9 %; MEAN CORPUSCULAR HEMOGLOBIN 29.5 pg (27.0-31.0); MEAN CORPUSCULAR HGB CONC 31.9 g/dL (32.0-36.0); MEAN CORPUSCULAR VOLUME 92.7 fL (81.0-99.0); MEAN PLATELET VOLUME 11.2 fL (7.9-10.8); MONOCYTES # (AUTO) 2.7 10^3/uL (0.0-1.0); MONOCYTES % (AUTO) 8.3 %; NEUTROPHILS # (AUTO) 24.8 10^3/uL (1.5-6.6); NEUTROPHILS % (AUTO) 75.6 %; NRBC ABSOLUTE COUNT (AUTO) 0.02 x10^3/uL; NUCLEATED RED BLOOD CELLS AUTO 0.1 /100WBC; PLT - PLATELET COUNT 170 10^3/uL (130-450); RED BLOOD COUNT 4.37 10^6/uL (4.20-5.40); RED CELL DISTRIBUTION WIDTH 16.1 % (12.0-15.0); WHITE BLOOD COUNT 32.8 x10^3/uL (4.8-10.8)
[2025-01-20] MEDS: SODIUM CHLORIDE 0.9% 1,000 ML IV STA ×2 (14:32→19:38)
[2025-01-20 14:48] LABS: ALBUMIN 3.6 g/dL (3.2-5.5); ALBUMIN/GLOBULIN RATIO 1.6 (1.0-2.2); BILIRUBIN,TOTAL 0.3 mg/dL (0.2-1.0); CALCIUM 8.7 mg/dL (8.5-10.3); CREATININE 0.7 mg/dL (0.6-1.3); MAGNESIUM 1.6 mg/dL (1.7-2.3); POTASSIUM 3.5 mmol/L (3.5-4.5); TOTAL PROTEIN 5.9 g/dL (6.4-8.9)
[2025-01-20 15:02] LABS: DIFFERENTIAL COMMENT MANUAL=AUTO DIFF; PLATELET ESTIMATE, MANUAL NORMAL (130-450,000) (NORMAL); PLATELET MORPHOLOGY NORMAL APPEARANCE (NORMAL); RBC MORPHOLOGY (MULTIPLE) NORMAL APPEARANCE (NORMAL); WBC MORPHOLOGY (MULTIPLE) 1+ SMUDGE CELLS (NORMAL)
--- NOTE | 2025-01-20 15:47 | XRAY Report ---
PROCEDURE: XR Chest 1V INDICATIONS: fatigue, chemo pt TECHNIQUE: One view of the chest was acquired. COMPARISON: CT chest with contrast 11/26/2024, chest x-ray 11/26/2024 FINDINGS: Surgical changes and devices: Right Port-A-Cath distal tip overlying the caval atrial junction. Lungs and pleura: No pleural effusions or pneumothorax. No consolidation. Mediastinum: Mediastinal contours appear normal. Heart size is normal. Bones and chest wall: No suspicious bony lesions. Overlying soft tissues appear unremarkable. IMPRESSION: No acute cardiopulmonary process. Reviewed by: Robert Kohler MD on 01/20/2025 2:46 PM AKDT Approved by: Robert Kohler MD on 01/20/2025 2:46 PM AKDT Station ID: [id number]
[2025-01-20 17:07] LABS: BILIRUBIN,URINE MODERATE (NEGATIVE); GLUCOSE, URINE (UA) 100 mg/dL (NEGATIVE); KETONES,URINE (UA) >=80 mg/dL (NEGATIVE); LEUKOCYTE ESTERASE, URINE TRACE (NEGATIVE); NITRITE,URINE NEGATIVE (NEGATIVE); OCCULT BLOOD,URINE NEGATIVE (NEGATIVE); PROTEIN,URINE 30 mg/dL (NEGATIVE); UROBILINOGEN,URINE 0.2 (NORMAL) E.U./dL (NORMAL)
[2025-01-20 17:19] LABS: CLARITY,URINE HAZY (CLEAR)
[2025-01-20 17:20] LABS: BACTERIA,URINE Few /HPF (None Seen); RBC,URINE 0-5 /HPF (0-5); SQUAMOUS EPITHELIAL CELL,UR RARE Squamous (<= Few); WBC CLUMPS,URINE PRESENT; WBC,URINE >25 /HPF (0-5)
[2025-01-20 17:22] LABS: EPITHELIAL CELLS,UR RARE Transitional /HPF (<= Few)
[2025-01-20] MEDS ORDERED: cefTRIAXone 1 GM VIAL ONE (17:48)
[2025-01-20] MEDS: cefTRIAXone 1 GM in SODIUM CHLORIDE 0.9% MINIBAG 100 ML IV STA (17:53)
[2025-01-20 17:54] LABS: B. PARAPERTUSSIS- RESP PCR PAN NOT DETECTED; B. PERTUSSIS- RESP PCR PANEL NOT DETECTED; C. PNEUMONIAE- RESP PCR PANEL NOT DETECTED; CORONAVIRUS 229E-RESP PCR NOT DETECTED; CORONAVIRUS HKU1-RESP PCR NOT DETECTED; CORONAVIRUS NL63-RESP PCR NOT DETECTED; CORONAVIRUS OC43-RESP PCR NOT DETECTED; HUMAN METAPNEUMOVIRUS NOT DETECTED; INFLUENZA A- RESP PCR PANEL NOT DETECTED; INFLUENZA B - RESP PCR PANEL NOT DETECTED; M. PNEUMONIAE- RESP PCR PANEL NOT DETECTED; PARAINFLUENZA VIRUS 1 NOT DETECTED; PARAINFLUENZA VIRUS 2 NOT DETECTED; PARAINFLUENZA VIRUS 4 NOT DETECTED; RHINOVIRUS/ENTEROVIRUS NOT DETECTED; RSV- RESP PCR PANEL NOT DETECTED; SARS-CoV-2 -RESP PCR PANEL NOT DETECTED
[2025-01-20] MEDS ORDERED: ONDANSETRON 4 MG/2 ML VIAL IVP PRN (21:20)
[2025-01-20] MEDS ORDERED: ACETAMINOPHEN 500 MG TABLET PO PRN (21:20)
[2025-01-20] MEDS: ENOXAPARIN 40 MG/0.4 ML SYRINGE SUBQ STA (21:55)
[2025-01-20] MEDS: DIGOXIN 125 MCG TABLET PO STA (22:26)
[2025-01-21 05:32] LABS: BASOPHILS % (AUTO) 0.8 %; HCT - HEMATOCRIT 35.5 % (37.0-47.0); HGB - HEMOGLOBIN 11.7 g/dL (12.0-16.0); LYMPHOCYTES % (AUTO) 14.9 %; MEAN CORPUSCULAR HEMOGLOBIN 30.2 pg (27.0-31.0); MEAN CORPUSCULAR VOLUME 91.7 fL (81.0-99.0); MEAN PLATELET VOLUME 10.2 fL (7.9-10.8); MONOCYTES % (AUTO) 9.6 %; NEUTROPHILS % (AUTO) 66.7 %; PLT - PLATELET COUNT 135 10^3/uL (130-450); RED BLOOD COUNT 3.87 10^6/uL (4.20-5.40); RED CELL DISTRIBUTION WIDTH 16.2 % (12.0-15.0); WHITE BLOOD COUNT 21.6 x10^3/uL (4.8-10.8)
[2025-01-21 05:43] LABS: ABNORMAL LYMPHS % (MANUAL) 0 %
[2025-01-21 05:49] LABS: CREATININE 0.6 mg/dL (0.6-1.3); POTASSIUM 3.3 mmol/L (3.5-4.5)
[2025-01-21 06:10] LABS: BAND NEUTROPHILS % (MANUAL) 1 %; LYMPHOCYTES # (MANUAL) 3.9 10^3/uL (1.5-3.5); LYMPHOCYTES % (MANUAL) 18 %; METAMYELOCYTES % (MANUAL) 1 %; MONOCYTES # (MANUAL) 1.9 10^3/uL (0.0-1.0); MYELOCYTES % (MANUAL) 3 %; NEUTROPHILS # (MANUAL) 14.9 10^3/uL (1.5-6.6)
[2025-01-21 06:11] LABS: DIFFERENTIAL COMMENT MANUAL DIFFERENTIAL; PLATELET ESTIMATE, MANUAL NORMAL (130-450,000) (NORMAL); PLATELET MORPHOLOGY NORMAL APPEARANCE (NORMAL); RBC MORPHOLOGY (MULTIPLE) NORMAL APPEARANCE (NORMAL); WBC MORPHOLOGY (MULTIPLE) NORMAL APPEARANCE (NORMAL)
[2025-01-21] MEDS ORDERED: PANTOPRAZOLE 40 MG TABLET PO SCH (07:00)
--- NOTE | 2025-01-21 07:53 | ED Physician Documentation ---
ED Addendum Addendum Addendum: Signout from overnight physician at 7 AM shift change. Briefly this is a 74-year-old woman with UTI /Sepsis. She is in A-fib with heart rates right around 100-110. No bed was available overnight but I spoke with Dr. Segovia for admission at 7:45 AM. Discharge Plan Discharge Patient Disposition: [facility] DC/Xfer Condition: Stable Clinical Impression: Sepsis, Acute UTI, Leukocytosis Prescriptions: No Action ondansetron HCl 8 mg tablet 8 mg PO TID PRN (Reason: nausea and vomiting) Qty: 90 0RF prochlorperazine maleate [Compazine] 10 mg tablet 10 mg PO TID PRN (Reason: nausea and vomiting) Qty: 90 0RF Xarelto 20 mg tablet 20 mg PO QPM Rx Instructions: must administer with evening meal metoprolol tartrate 25 mg Tablet 12.5 mg PO BID 30 Days Qty: 30 0RF pantoprazole 40 mg Tablet,Delayed Release (Dr/Ec) 40 mg PO BIDAC 30 Days Qty: 60 0RF sucralfate 1 gram tablet 1 g PO QID Qty: 60 2RF escitalopram oxalate 20 mg tablet 20 mg PO DAILY latanoprost 0.005 % drops 1 drp ophthalmic (eye) DAILY metoprolol succinate 25 mg tablet extended release 24 hr 50 mg PO QDAY digoxin 250 mcg (0.25 mg) tablet 250 mcg PO QDAY empagliflozin 10 mg tablet 10 mg PO QDAY Print Language: Togolese
[2025-01-21] MEDS: SODIUM CHLORIDE 0.9% 1,000 ML IV STA (08:00)
[2025-01-21] MEDS: ESCITALOPRAM 10 MG TABLET PO SCH ×2 (08:24→11:28)
[2025-01-21] MEDS: SUCRALFATE 1 GM/10 ML UDC PO SCH ×2 (08:24→11:03)
[2025-01-21] MEDS: PANTOPRAZOLE 40 MG TABLET PO SCH ×2 (08:24→16:03)
[2025-01-21] MEDS: METOPROLOL TARTRATE 50 MG TABLET PO SCH (08:25)
[2025-01-21] MEDS: cefTRIAXone 1 GM in SODIUM CHLORIDE 0.9% MINIBAG 100 ML IV SCH (09:35)
[2025-01-21] MEDS ORDERED: ACETAMINOPHEN 325 MG TABLET PO PRN (10:03)
[2025-01-21] MEDS ORDERED: PROCHLORPERAZINE 10 MG/2 ML VIAL IVP PRN (10:03)
[2025-01-21] MEDS ORDERED: SODIUM CHLORIDE FLUSH 0.9% 10 ML SYRINGE IVP PRN (10:03)
[2025-01-21] MEDS: SODIUM CHLORIDE 0.9% 1,000 ML IV SCH (10:23)
[2025-01-21] MEDS: DIGOXIN 125 MCG TABLET PO SCH (11:01)
[2025-01-21] MEDS: LATANOPROST 0.005% OPHTH DROPS EACHEYE SCH ×2 (11:28→20:45)
--- NOTE | 2025-01-21 12:14 | PHARMACY PROGRESS NOTE ---
Best Possible Medication History Admit Date and Time: 01/21/25 [id number] Home Medications Medication Instructions Recorded Confirmed Type escitalopram oxalate 20 mg tablet 20 mg PO DAILY 08/27/24 01/21/25 History latanoprost 0.005 % eye drops 1 drp ophthalmic (eye) DAILY 08/27/24 01/21/25 History rivaroxaban 20 mg tablet (Xarelto) 20 mg PO QPM 11/27/24 01/21/25 History metoprolol tartrate 25 mg tablet 12.5 mg (1/2 x 25 mg) PO BID 30 11/28/24 01/21/25 Rx days #30 tabs pantoprazole 40 mg tablet,delayed 40 mg PO BIDAC 30 days #60 tabs 11/28/24 01/21/25 Rx release sucralfate 1 gram tablet 1 g PO QID #60 tabs 11/28/24 01/21/25 Rx ondansetron HCl 8 mg tablet 8 mg PO TID PRN nausea and 12/21/24 01/21/25 Rx vomiting #90 tabs prochlorperazine maleate 10 mg 10 mg PO TID PRN nausea and 12/21/24 01/21/25 Rx tablet (Compazine) vomiting #90 tabs digoxin 250 mcg (0.25 mg) tablet 250 mcg PO QDAY 01/09/25 01/21/25 History empagliflozin 10 mg tablet 10 mg PO QDAY 01/09/25 01/21/25 History Processed by: Pharmacy Medications reviewed in ED?: No Medication History completed: Yes Patient Interview: Completed Secondary Source(s): Insurance records [facility] Statement: Per patient interview with pharmacist and review of [employer] records. As the person ultimately responsible for medication therapy, providers are able to order a medication from an existing home medication list in [facility] via the "Reconcile Routine" prior to Confirmation of that medication by software support technician. Such practice is discouraged except when the physician, in their clinical judgment, deems that a medical need exists for a medication without regard to previous use.
--- NOTE | 2025-01-21 12:32 | HISTORY & PHYSICAL EXAMINATION ---
Chief Complaint Chief Complaint Chief Complaint: Generalized weakness, fatigue, fast heartbeat History of Present Illness Admitted From Admitted From:: ED History Obtained From Records Reviewed: ED History obtained from: Patient Exam Limitations: none History of Present Illness HPI Comment/Other: Patient is a 74-year-old female with a history of breast cancer who recently completed a 6 round treatment course of chemotherapy, history of A-fib on Digoxin, GERD, left leg DVT on Xarelto, Who presented to the ED with generalized weakness, fatigue malaise and overall not feeling well. In addition to this she has noticed increased heart rates over the last few days describing her symptoms as asymptomatic A-fib. She states that her previous chemotherapy sessions have usually been followed by a approximately 7-day period of similar symptoms of generalized malaise but this typically resolves by the seventh day and she begins to feel back at her baseline prior to the next round of chemotherapy. She states that it has been 10 days since her last chemotherapy session and she does not feel any better and in addition to that has palpitations which prompted her to come to the ED. She denies any fever or chills, chest pain, shortness of breath, vomiting, but states she is not able to keep anything down and has diminished appetite. She denies any urinary symptoms such as dysuria, frequent urination or malodor. She states that she has had UTIs in the past but not on a recurring basis. In the ED, the patient met sepsis criteria due to hypotension, tachycardia, and leukocytosis. She also has a urinalysis suggestive of possible UTI, but with only slightly elevated WBC count and negative nitrites. She was given her regular dose of digoxin for A-fib with RVR with heart rates in the 120s, but continues to feel palpitations.A viral panel was felix negative.Chest x-ray shows no evidence of pneumonia.The patient's A-fib with RVR, hypotension, and general comorbidities with breast cancer and intolerance to p.o., she will be admitted to ICU initially for further management. Meds/Allgy Home Medications Ambulatory Orders Medication Instructions Recorded Confirmed escitalopram oxalate 20 mg tablet 20 mg PO DAILY 08/27/24 01/21/25 latanoprost 0.005 % eye drops 1 drp ophthalmic (eye) DAILY 08/27/24 01/21/25 rivaroxaban 20 mg tablet (Xarelto) 20 mg PO QPM 11/27/24 01/21/25 metoprolol tartrate 25 mg tablet 12.5 mg (1/2 x 25 mg) PO BID 30 11/28/24 01/21/25 days #30 tabs pantoprazole 40 mg tablet,delayed 40 mg PO BIDAC 30 days #60 tabs 11/28/24 01/21/25 release sucralfate 1 gram tablet 1 g PO QID #60 tabs 11/28/24 01/21/25 ondansetron HCl 8 mg tablet 8 mg PO TID PRN nausea and 12/21/24 01/21/25 vomiting #90 tabs prochlorperazine maleate 10 mg 10 mg PO TID PRN nausea and 12/21/24 01/21/25 tablet (Compazine) vomiting #90 tabs digoxin 250 mcg (0.25 mg) tablet 250 mcg PO QDAY 01/09/25 01/21/25 empagliflozin 10 mg tablet 10 mg PO QDAY 01/09/25 01/21/25 Allergies Allergies Allergy/AdvReac Type Severity Reaction Status Date / Time No Known Drug Allergies Allergy Verified 01/20/25 12:33 [facility] Active Problems All Active Problems (Updated 01/21/25 @ 12:43 by Tom Segovia MD) Atrial fibrillation with RVR (Acute) Leukocytosis (Acute) Acute UTI (Acute) Sepsis (Acute) Cardiomyopathy (Acute) Duodenitis (Acute) Breast cancer, right (Acute) Healthcare maintenance (Acute) Encounter for antineoplastic chemotherapy (Acute) Adenoma of left adrenal gland (Acute) Acute urinary tract infection (Acute) Medical History Medical History (Updated 01/21/25 @ 12:43 by Tom Segovia MD) Atrial fibrillation Upper GI bleed 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 Bimalleolar fracture of left ankle Forehead laceration Pneumonia Dehydration Encounter for education about infusion care Left adrenal mass Depression High blood pressure Left ankle injury Surgical History Surgical History H/O: hysterectomy Social History Social History Smoking Status: Never smoker Second hand tobacco smoke exposure: No Do you dip or chew tobacco?: No Do you vape?: No Living arrangement: At home Relationship: Level: Assisted Home Mobility Equipment: Walker Do you feel safe in your home environment?: Yes Suffered physical, verbal, emotional, or financial abuse?: No History of Abuse: No Frequency: Occasional Substance Use: denies use POLST Patient has POLST: No POLST Status: Full Code Review of Systems Status of ROS: 10 or more systems reviewed and unremarkable except as noted in history and below Exam Constitutional Patient is alert and oriented but with a generally sick appearance, with chemotherapy-induced alopecia, port on right side of chest noted to be CDI HENMT normocephalic and head/scalp atraumatic (Alopecia) Eyes conjunctivae normal Chest inspection of chest normal and palpation of chest normal Respiratory breath sounds equal bilaterally, normal respiratory effort, clear to auscultation bilaterally, no wheezes and no rales Cardiovascular no gallop, no rub and no murmur Gastrointestinal abdomen normal to inspection, abdomen soft to palpation and nontender to palpation Extremities normal to inspection 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, no movement abnormality noted and no focal motor deficit noted Psychiatry Mental Status Exam documented in the separate MSE Skin skin color normal Conclusion/Plan Problem List (1) Sepsis: (2) Breast cancer, right: Qualifiers: Breast location: lower outer quadrant of breast Estrogen receptor status: positive Patient sex: female Qualified Code(s): C50.511 - Malignant neoplasm of lower-outer quadrant of right female breast; Z17.0 - Estrogen receptor positive status [ER+] (3) Atrial fibrillation with RVR: (4) Duodenitis: Plan #Sepsispresent on admission #Leukocytosis * Patient presents with symptoms suggestive of sepsis including fatigue, malaise, intolerance to p.o., weakness, along with A-fib with RVR * UA is suggestive of but not definitively indicating a UTI * Patient is also hypotensive * Patient will be admitted to ICU for further care * Will continue ceftriaxone empirically * Follow-up urine and blood cultures * Pending clinical course consider broadening IV antibiotics to include vancomycin given patient's risk factors * Consider port culture pending blood culture results #A-fib with RVR * Likely secondary to above versus chemotherapy induced as patient states her chemotherapy initially started the A-fib in the first place * Also further exacerbated by decreased p.o. intake which may be due to infection versus chemotherapy * As above, place patient in ICU * Continue to use oxygen * Currently heart rates relatively well-controlled less than 120, consider as needed metoprolol versus diltiazem infusion pending further rate pattern #Breast cancer * Completed 6 courses of chemotherapy * Patient is planned for surgery per patient, was not able to find information about this in the outpatient patient notes #Duodenitis * She notes previously diagnosed per oncology notes * Patient is on Carafate and pantoprazole * Pending clinical course, can consider further evaluation if patient continues to be intolerant to p.o. after resolution of sepsis Lab Results Lab results reviewed: Yes 01/21/25 05:20 01/21/25 05:20 Diagnostic Imaging Results Diagnostic Imaging Results: positive Final report reviewed EKG Results EKG Interpreted Independently: Yes
[2025-01-21] MEDS: MAGNESIUM SULFATE 2 GRAM 2 GM/50 ML BAG IV ONE (15:36)
[2025-01-21] MEDS: POTASSIUM CHLOR 10 MEQ/100 ML 10 MEQ/100 ML BAG IV SCH (15:37)
--- NOTE | 2025-01-21 15:52 | OT Plan of Care ---
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 MEDICAL/SURGICAL HISTORY Medical History (Updated 01/21/25 @ 12:43 by Tom Segovia MD) Atrial fibrillation Upper GI bleed 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 Bimalleolar fracture of left ankle Forehead laceration Pneumonia Dehydration Encounter for education about infusion care Left adrenal mass Depression High blood pressure Left ankle injury Surgical History H/O: hysterectomy Assessment and Goals ASSESSMENT Assessment: Patient is a 74-year-old female with a history of breast cancer who recently completed a 6 round treatment course of chemotherapy, history of A-fib on Digoxin, GERD, left leg DVT on Xarelto, Who presented to the ED with generalized weakness, fatigue malaise. In the ED, the patient met sepsis criteria due to hypotension, tachycardia, and leukocytosis. UTI culture results pending. Viral panel was felix negative. Chest x-ray shows no evidence of pne umonia. Adm to ICU for further management of A-Fib with RVR, Hypotension, The patient's A-fib with RVR, hypotension, and general comorbidities with breast cancer and intolerance to p.o. Seen today for OT eval per MD request. Met on RA HR max 140s with mobility, Resting/recovery 90s, BP stable, Spo2 Above 90%. A&Ox4, follows all commands appropriately. Performed sit to stand and ambulation to/from bathroom 10ft using RW MIN A- MIN A toilet tx and LB clothing management/hygiene. Quick to fatigue Overall presents with decreased endurance, activity tolerance and ADL status. Will benefit from cont OT services during acute stay. Rec d/c home with HH OT services to maximize indp and safety. -Activities of Daily Living Improve Upper Extremity Dressing to:: Modified Independent Improve Lower Extremity Dressing to:: Modified Independent Improve Grooming/Hygiene to:: Modified Independent Improve Bathing to:: Modified Independent Improve Toileting to:: Modified Independent OT Inpatient Plan PLAN Treatment Frequency: 1x/day Duration: Until discharge -Discharge Recommendations Discharge Location: Previous Living Situation Support/Services Needed: Home Health O.T. Transport Needs at Discharge: Personal vehicle
--- NOTE | 2025-01-21 15:56 | PT Plan of Care ---
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 MEDICAL/SURGICAL HISTORY Medical History (Updated 01/21/25 @ 12:43 by Tom Segovia MD) Atrial fibrillation Upper GI bleed 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 Bimalleolar fracture of left ankle Forehead laceration Pneumonia Dehydration Encounter for education about infusion care Left adrenal mass Depression High blood pressure Left ankle injury Surgical History H/O: hysterectomy BALANCE/FUNCTIONAL RESULTS Sitting Balance: Good Standing Balance: Fair Tinetti Composite Score (Balance + Gait): 15 Tinetti Assessment Interpretation: High Fall Risk ASSESSMENT Assessment: The pt is a 74 y/o F who was arrived to the ED on 01/20/25 due to progressively worsening fatigue and malaise, she was hospitalized with sepsis and possible UTI. She has been undergoing chemo for breast CA 1x every other week, please see chart for complete medical hx. The pt was received resting comfortably sitting up in a recliner and presented today with decreased B UE and LE strength, decreased activity tolerance, and standing balance impairments which limited her tolerance with functional mobility. OT was present and assisting throughout due to the pt's functional limitations. At this time recommend continued skilled PT intervention while in the acute setting and DC home with HH therapy for further rehab once pt medically stable. This plan was discussed with the pt and she was in agreement with this. At the end of the session the pt was sitting up in a chair with call light in reach and all needs met. GOALS Improve supine to sit to:: Independent Improve sit to stand to:: Modified Independent Improve pivot transfer ability to:: Modified Independent Improve sit to supine to:: Independent Improve gait ability to:: Ind Advance Assistive Device to:: Four Wheeled Walker Increase distance walked to (in feet):: 25 PLAN Frequency: 1-2x/day Duration: Until discharge DISCHARGE RECOMMENDATIONS Discharge Location: Previous Living Situation Support/Services Needed: Home Health P.T. Other Discharge Equipment: pt owns all recommended DME Transport Needs at Discharge: Personal vehicle
[2025-01-21] MEDS ORDERED: POTASSIUM CHLOR 20 MEQ/100 ML 20 MEQ/100 ML BAG IV SCH (16:00)
[2025-01-21] MEDS: SODIUM CHLORIDE FLUSH 0.9% 10 ML SYRINGE IVP SCH (16:03)
[2025-01-21] MEDS: APIXABAN 5 MG TABLET PO SCH (20:44)
[2025-01-21 21:55] LABS: MAGNESIUM 1.9 mg/dL (1.7-2.3); POTASSIUM 3.5 mmol/L (3.5-4.5)
[2025-01-22 04:13] LABS: VBG PH 7.305 (7.31-7.41)
[2025-01-22 04:23] LABS: MAGNESIUM 1.7 mg/dL (1.7-2.3)
[2025-01-22 04:28] LABS: PHOSPHORUS 2.8 mg/dL (2.5-5.0)
[2025-01-22] MEDS: MAGNESIUM SULFATE 2 GRAM 2 GM/50 ML BAG IV ONE (05:07)
[2025-01-22 08:01] LABS: HCT - HEMATOCRIT 35.9 % (37.0-47.0); HGB - HEMOGLOBIN 11.6 g/dL (12.0-16.0); MEAN CORPUSCULAR HEMOGLOBIN 29.8 pg (27.0-31.0); MEAN CORPUSCULAR HGB CONC 32.3 g/dL (32.0-36.0); MEAN CORPUSCULAR VOLUME 92.3 fL (81.0-99.0); MEAN PLATELET VOLUME 11.2 fL (7.9-10.8); RED BLOOD COUNT 3.89 10^6/uL (4.20-5.40); RED CELL DISTRIBUTION WIDTH 16.6 % (12.0-15.0)
[2025-01-22 08:34] LABS: CREATININE 0.6 mg/dL (0.6-1.3); POTASSIUM 3.2 mmol/L (3.5-4.5)
[2025-01-22] MEDS: ESCITALOPRAM 10 MG TABLET PO SCH (09:14)
[2025-01-22] MEDS: ONDANSETRON 4 MG/2 ML VIAL IVP PRN (09:18)
[2025-01-22] MEDS: POTASSIUM CHLOR 10 MEQ/100 ML 10 MEQ/100 ML BAG IV SCH ×2 (10:18→16:17)
[2025-01-22] MEDS: PRENATAL VITAMIN TABLET PO SCH (10:18)
--- NOTE | 2025-01-22 11:58 | PROVIDER PROGRESS NOTE ---
Subjective Subjective Subjective: Patient states that she feels mildly better today. She has no fevers. She has some mild chills. She also states that she has a cough. She has had a very poor appetite since being here. She is not on any appetite stimulants, but is interested in starting one. Current Medications Current Medications Current Medications: Current Medications Generic Name Dose Route Start Last Admin Trade Name Freq PRN Reason Stop Dose Admin Acetaminophen 1,000 mg 01/20/25 21:20 Acetaminophen 500 Mg Tablet PO Q6H PRN Mild Pain Or Fever>38c(100.4f) Acetaminophen 650 mg 01/21/25 10:03 Acetaminophen 325 Mg Tablet PO Q4HR PRN Pain 1 to 4, or Fever Apixaban 5 mg 01/21/25 21:00 01/22/25 09:14 Apixaban 5 Mg Tablet PO 5 mg BID NATALIYA Administration Digoxin 250 mcg 01/21/25 10:03 01/22/25 09:42 Digoxin 125 Mcg Tablet PO 250 mcg DAILY NATALIYA Administration Escitalopram Oxalate 20 mg 01/22/25 09:00 01/22/25 09:14 Escitalopram 10 Mg Tablet PO 20 mg DAILY NATALIYA Administration Ceftriaxone Sodium 1 gm/ 100 mls @ 200 mls/hr 01/21/25 09:00 01/22/25 09:45 Sodium Chloride IV Infused DAILY NATALIYA Infusion Sodium Chloride 1,000 mls @ 125 mls/hr 01/21/25 10:03 01/22/25 09:45 Normal Saline 0.9% IV 125 mls/hr .Q8H NATALIYA Administration Potassium Chloride 10 meq in 100 mls @ 100 mls/hr 01/22/25 11:00 01/22/25 11:05 Potassium Chloride IV 01/22/25 14:59 100 mls/hr Q1H NATALIYA Administration Latanoprost 1 drops 01/21/25 10:10 01/21/25 20:45 Latanoprost 0.005% Ophth Drops EACHEYE 1 drops QPM NATALIYA Administration Metoprolol Tartrate 50 mg 01/21/25 09:00 01/22/25 09:43 Metoprolol Tartrate 50 Mg Tablet PO Not Given BID NATALIYA Ondansetron HCl 4 mg 01/21/25 10:03 01/22/25 09:18 Ondansetron 4 Mg/2 Ml Vial IVP 4 mg Q6HR PRN Administration Nausea / Vomiting Pantoprazole Sodium 40 mg 01/21/25 16:00 01/22/25 06:13 Pantoprazole 40 Mg Tablet PO 40 mg BIDAC NATALIYA Administration Multivit/Folic Acid/Iron 1 tab 01/22/25 10:00 01/22/25 10:18 Vitamin Tablet PO 1 tab DAILYWM NATALIYA Administration Prochlorperazine Edisylate 10 mg 01/21/25 10:03 Prochlorperazine 10 Mg/2 Ml Vial IVP Q6HR PRN Nausea / Vomiting Sodium Chloride 10 ml 01/21/25 10:03 Sodium Chloride Flush 0.9% 10 Ml Syringe IVP PRN PRN NEEDED PER PROVIDER ORDERS Sodium Chloride 10 ml 01/21/25 17:00 01/22/25 09:15 Sodium Chloride Flush 0.9% 10 Ml Syringe IVP 10 ml 0100,0900,1700 NATALIYA Administration Sucralfate 1 gm 01/21/25 11:00 01/22/25 10:18 Sucralfate 1 Gm/10 Ml Udc PO 1 gm 0700,1100,1600,2200 NATALIYA Administration Objective Vital Signs/Intake & Output Reviewed Vital Signs: Yes Vital Signs: Vital Signs x48h Temp Pulse Pulse Resp BP BP Pulse Ox 01/22/25 11:00 94 16 106/79 97 01/22/25 10:00 87 20 109/56 L 95 01/22/25 09:43 93 108/63 01/22/25 09:00 102 H 25 H 115/59 L 95 01/22/25 08:00 97.7 F 94 22 130/52 L 93 01/22/25 07:18 86 95/67 01/22/25 07:00 78 19 95/41 L 98 01/22/25 06:00 76 18 111/48 L 98 01/22/25 05:00 77 18 94/55 L 100 01/22/25 04:00 97.7 F 83 19 106/60 99 O2 Flow Rate 01/22/25 11:00 01/22/25 10:00 01/22/25 09:43 01/22/25 09:00 01/22/25 08:00 01/22/25 07:18 01/22/25 07:00 2 01/22/25 06:00 2 01/22/25 05:00 01/22/25 04:00 Intake & Output: Intake & Output 01/19/25 01/20/25 01/21/25 01/22/25 23:59 23:59 23:59 23:59 Intake Total 2099 Output Total 0 / 0 Balance 2099 Weight (kg) 98.883 kg 99 kg Objective General Appearance: positive No acute distress and Alert Eyes Bilateral: positive Normal inspection and PERRL ENT: positive ENT inspection nml Neck: positive Nml inspection and No JVD Respiratory: positive Chest non-tender, No respiratory distress, Breath sounds nml and Other (Mediport in place; no tenderness or erythema noted) Cardiovascular: positive Irregularly irregular and Tachycardia Abdomen: positive Non-tender Skin: positive Warm, Dry and Other (hyperpigmentation/erythema noted of LLE) Extremities: positive Non-tender, Full ROM, Nml appearance and Pedal edema (LLE with some mild edema, non-pitting) Neurologic/Psychiatric: positive Oriented x3 Lab Results 01/22/25 07:54 01/22/25 08:15 Other Labs: Lab Results x24hrs 01/22/25 01/22/25 01/22/25 Range/Units 09:56 08:38 08:15 WBC (4.8-10.8) x10^3/uL RBC (4.20-5.40) 10^6/uL Hgb (12.0-16.0) g/dL Hct (37.0-47.0) % MCV (81.0-99.0) fL MCH (27.0-31.0) pg MCHC (32.0-36.0) g/dL RDW (12.0-15.0) % Plt Count (130-450) 10^3/uL MPV (7.9-10.8) fL VBG pH (7.31-7.41) Ionized Calcium (1.09-1.30) mmol/L Sodium 141 (135-145) mmol/L Potassium 3.2 L (3.5-4.5) mmol/L Chloride 110 (101-111) mmol/L Carbon Dioxide 22 (21-32) mmol/L Anion Gap 9.0 (6-13) BUN 5 L (6-20) mg/dL Creatinine 0.6 (0.6-1.3) mg/dL Estimated GFR (MDRD) 98 (>89) Glucose 73 L (74-104) mg/dL POC Whole Bld Glucose 123 73 (70-100) mg/dL Calcium 8.0 L (8.5-10.3) mg/dL Phosphorus (2.5-5.0) mg/dL Magnesium 2.2 (1.7-2.3) mg/dL Nasal Screen MRSA (PCR) (NEGATIVE) 01/22/25 01/22/25 01/21/25 Range/Units 07:54 04:05 21:05 WBC 12.0 H (4.8-10.8) x10^3/uL RBC 3.89 L (4.20-5.40) 10^6/uL Hgb 11.6 L (12.0-16.0) g/dL Hct 35.9 L (37.0-47.0) % MCV 92.3 (81.0-99.0) fL MCH 29.8 (27.0-31.0) pg MCHC 32.3 (32.0-36.0) g/dL RDW 16.6 H (12.0-15.0) % Plt Count 123 L (130-450) 10^3/uL MPV 11.2 H (7.9-10.8) fL VBG pH 7.305 L (7.31-7.41) Ionized Calcium 1.20 (1.09-1.30) mmol/L Sodium (135-145) mmol/L Potassium 3.5 (3.5-4.5) mmol/L Chloride (101-111) mmol/L Carbon Dioxide (21-32) mmol/L Anion Gap (6-13) BUN (6-20) mg/dL Creatinine (0.6-1.3) mg/dL Estimated GFR (MDRD) (>89) Glucose (74-104) mg/dL POC Whole Bld Glucose (70-100) mg/dL Calcium (8.5-10.3) mg/dL Phosphorus 2.8 (2.5-5.0) mg/dL Magnesium 1.7 1.9 (1.7-2.3) mg/dL Nasal Screen MRSA (PCR) (NEGATIVE) 01/21/25 Range/Units 10:08 WBC (4.8-10.8) x10^3/uL RBC (4.20-5.40) 10^6/uL Hgb (12.0-16.0) g/dL Hct (37.0-47.0) % MCV (81.0-99.0) fL MCH (27.0-31.0) pg MCHC (32.0-36.0) g/dL RDW (12.0-15.0) % Plt Count (130-450) 10^3/uL MPV (7.9-10.8) fL VBG pH (7.31-7.41) Ionized Calcium (1.09-1.30) mmol/L Sodium (135-145) mmol/L Potassium (3.5-4.5) mmol/L Chloride (101-111) mmol/L Carbon Dioxide (21-32) mmol/L Anion Gap (6-13) BUN (6-20) mg/dL Creatinine (0.6-1.3) mg/dL Estimated GFR (MDRD) (>89) Glucose (74-104) mg/dL POC Whole Bld Glucose (70-100) mg/dL Calcium (8.5-10.3) mg/dL Phosphorus (2.5-5.0) mg/dL Magnesium (1.7-2.3) mg/dL Nasal Screen MRSA (PCR) NEGATIVE (NEGATIVE) Diagnostic Imaging Diagnostic Imaging Results: positive Final report reviewed ABX Reporting Has patient been on IV antibiotics over the past 48 hours?: Yes Sepsis Event Note (H) Evaluation Current Stage of Sepsis: Sepsis Possible source of Sepsis: positive GI tract/intra-abdominal and Skin/soft tissue Sepsis Criteria Sepsis Criteria: WBC count greater than 12,000 or less than 4000 Assessment/Plan Problem List (1) Atrial fibrillation with RVR: Impression: Patient presented with atrial fibrillation with rapid ventricular response with heart rate as high as 140. She was given oral metoprolol, as well as her home digoxin with improvement of her heart rate. Continue home metoprolol, 12.5 mg twice daily, as well as digoxin to 50 mcg daily per home dose. Continue XareltoEliquis here for formulary exchange. Patient has received adequate IV fluid hydration. IVF stopped. Continue to encourage oral rehydration. (2) Sepsis: Impression: Patient presented with tachycardia, as well as leukocytosis. Source is likely urinary; UA is positive, urine culture has been sent, and patient did complain of some dysuria on admission. Continue IV Rocephin at this time. Will de-escalate as appropriate. Qualifiers: Sepsis acute organ dysfunction status: unspecified Sepsis type: sepsis due to unspecified organism Qualified Code(s): A41.9 - Sepsis, unspecified organism (3) Acute UTI: Impression: Continue Rocephin as stated above for urinary tract infection. (4) Breast cancer, right: Impression: Patient follows with oncologist, Dr. Burrell. Last saw him 01/09/2025. Has a history of right breast cancer on chemotherapy currently. She was referred to [facility] on 01/01/2025 due to possible cardiomyopathy with the chemotherapy. Qualifiers: Breast location: lower outer quadrant of breast Estrogen receptor status: positive Patient sex: female Qualified Code(s): C50.511 - Malignant neoplasm of lower-outer quadrant of right female breast; Z17.0 - Estrogen receptor positive status [ER+] (5) Duodenitis: Impression: Continue treatment with Carafate and Protonix. Patient with no diarrhea at this time. (6) Hypokalemia: Impression: Due to decreased p.o. intake, continue repletion. (7) Left femoral vein DVT: Impression: Continue Xarelto. Qualifiers: Chronicity: chronic Qualified Code(s): I82.512 - Chronic embolism and thrombosis of left femoral vein
[2025-01-22] MEDS: METOPROLOL TARTRATE 25 MG TABLET PO STA (15:03)
[2025-01-22] MEDS: POTASSIUM CHLORIDE 20 MEQ TABLET PO SCH (16:20)
[2025-01-22] MEDS: METOPROLOL TARTRATE 25 MG TABLET PO SCH (21:17)
[2025-01-23 05:53] LABS: HGB - HEMOGLOBIN 11.3 g/dL (12.0-16.0); MEAN CORPUSCULAR HGB CONC 31.4 g/dL (32.0-36.0); MEAN CORPUSCULAR VOLUME 92.3 fL (81.0-99.0); MEAN PLATELET VOLUME 10.7 fL (7.9-10.8); RED BLOOD COUNT 3.9 10^6/uL (4.20-5.40); RED CELL DISTRIBUTION WIDTH 16.7 % (12.0-15.0); WHITE BLOOD COUNT 9.4 x10^3/uL (4.8-10.8)
[2025-01-23 06:05] LABS: MAGNESIUM 1.7 mg/dL (1.7-2.3)
[2025-01-23 06:11] LABS: CALCIUM 8.2 mg/dL (8.5-10.3); CREATININE 0.5 mg/dL (0.6-1.3); POTASSIUM 3.4 mmol/L (3.5-4.5)
[2025-01-23 08:09] VITALS: BP 141/82; TEMP 97.7; O2SAT 95
--- NOTE | 2025-01-23 08:33 | Discharge Summary ---
"Discharge Summary Admit Date: 01/21/25 Discharge Date: 01/23/25 Discharging Provider: Dr. Matti Harden Primary Care Provider: Jacques Gardiner Discharge Facility [facility] DIAGNOSES Admission Diagnoses: Sepsis Leukocytosis Atrial fibrillation with RVR Breast cancer Duodenitis Discharge Diagnoses with Status of Each Condition: Atrial fibrillation with RVRpatient was given oral metoprolol, double her home dose, as well as digoxin. Will continue this higher dose at home. Continue Xarelto at home as well. 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 Sepsispatient presented with tachycardia, as well as leukocytosis. Source is likely urinaryUA was positive. Patient also was symptomatic with dysuria and increased urinary frequency. Received IV Rocephin while here, and was transitioned to oral Macrobid on discharge to complete course. Acute UTIsee above. Breast cancer, rightpatient follows with oncologist, Dr. Burrell. Has a history of right breast cancer and chemotherapy, advised to continue follow-up outpatient. Duodenitiscontinue treatment with Carafate Protonix. Advised to continue close follow-up. Hypokalemiaresolved. Left femoral vein DVTcontinue Xarelto. HPI History of Present Illness: Per Dr. Segovia: Patient is a 74-year-old female with a history of breast cancer who recently completed a 6 round treatment course of chemotherapy, history of A-fib on Digoxin, GERD, left leg DVT on Xarelto, Who presented to the ED with generalized weakness, fatigue malaise and overall not feeling well. In addition to this she has noticed increased heart rates over the last few days describing her symptoms as asymptomatic A-fib. She states that her previous chemotherapy sessions have usually been followed by a approximately 7-day period of similar symptoms of generalized malaise but this typically resolves by the seventh day and she begins to feel back at her baseline prior to the next round of chemotherapy. She states that it has been 10 days since her last chemotherapy session and she does not feel any better and in addition to that has palpitations which prompted her to come to the ED. She denies any fever or chills, chest pain, shortness of breath, vomiting, but states she is not able to keep anything down and has diminished appetite. She denies any urinary symptoms such as dysuria, frequent urination or malodor. She states that she has had UTIs in the past but not on a recurring basis. In the ED, the patient met sepsis criteria due to hypotension, tachycardia, and leukocytosis. She also has a urinalysis suggestive of possible UTI, but with only slightly elevated WBC count and negative nitrites. She was given her regular dose of digoxin for A-fib with RVR with heart rates in the 120s, but continues to feel palpitations.A viral panel was felix negative.Chest x-ray shows no evidence of pneumonia.The patient's A-fib with RVR, hypotension, and general comorbidities with breast cancer and intolerance to p.o., she will be admitted to ICU initially for further management. CONSULTS | PROCEDURES Consultations: PT, OT, SW Procedures: Chest x-ray HOSPITAL COURSE Hospital Course: Patient is a 74-year-old female with a history of breast cancer currently on chemotherapy, atrial fibrillation on digoxin who presented with generalized fatigue, malaise. She was found to be in atrial fibrillation with RVR admission, and was septic. For her A-fib with RVR, she required some additional doses of her home metoprolol, and was resumed on her digoxin as well. Will be discharging her on double dose of metoprolol. She was also found to be septic, with little likely source being urinary. She was started on IV Rocephin, which was switched to oral antibiotics on discharge to complete your treatment. During her stay here, she had a poor appetite, which she admits that she has at home as well. Will trial a low-dose appetite stimulant. She was advised to follow-up with her oncologist and primary care provider in the outpatient setting. Physical therapy, Occupational Therapy did evaluate the patient as well, and deemed her suitable for discharge home with home health care. She has a lot of support with great neighbors around her that help with her activities of daily living. ALLERGIES Allergies Allergy/AdvReac Type Severity Reaction Status Date / Time No Known Drug Allergies Allergy Verified 01/20/25 12:33 MEDICATIONS Ambulatory Orders Medication Instructions Recorded Confirmed escitalopram oxalate 20 mg tablet 20 mg PO DAILY 08/27/24 01/21/25 latanoprost 0.005 % eye drops 1 drp ophthalmic (eye) DAILY 08/27/24 01/21/25 rivaroxaban 20 mg tablet (Xarelto) 20 mg PO QPM 11/27/24 01/21/25 pantoprazole 40 mg tablet,delayed 40 mg PO BIDAC 30 days #60 tabs 11/28/24 01/21/25 release sucralfate 1 gram tablet 1 g PO QID #60 tabs 11/28/24 01/21/25 ondansetron HCl 8 mg tablet 8 mg PO TID PRN nausea and 12/21/24 01/21/25 vomiting #90 tabs prochlorperazine maleate 10 mg 10 mg PO TID PRN nausea and 12/21/24 01/21/25 tablet (Compazine) vomiting #90 tabs digoxin 250 mcg (0.25 mg) tablet 250 mcg PO QDAY 01/09/25 01/21/25 empagliflozin 10 mg tablet 10 mg PO QDAY 01/09/25 01/21/25 metoprolol tartrate 25 mg tablet 25 mg PO BID 30 days #30 tabs 01/23/25 nitrofurantoin macrocrystal 100 mg 100 mg PO BID 4 days #8 caps 01/23/25 capsule olanzapine 2.5 mg tablet (Zyprexa) 2.5 mg PO DAILY #14 tabs 01/23/25 PHYSICAL EXAM AT DISCHARGE General Appearance: positive No acute distress and Alert Eyes Bilateral: positive Normal inspection, PERRL and EOMI ENT: positive ENT inspection nml, Pharynx nml and No signs of dehydration Neck: positive Nml inspection, Thyroid nml and No JVD Respiratory: positive Chest non-tender and No respiratory distress; negative Wheezes, Rales or Rhonchi Cardiovascular: positive No murmur, No gallop and Irregularly irregular; negative Tachycardia Peripheral Pulses: positive 2+ Abdomen: positive Non-tender; negative Guarding, Rebound, Hepatomegaly, Splenomegaly or Mass Back: positive Nml inspection; negative CVA tenderness (R) or CVA tenderness (L) Skin: positive Color nml, No rash, Warm and Dry Extremities: positive Non-tender, Full ROM and No pedal edema Neurologic/Psychiatric: positive Oriented x3 and Mood/affect nml LABS 01/23/25 05:40 01/23/25 05:40 DIAGNOSTIC IMAGING Diagnostic Imaging Results: Final report reviewed SEPSIS Current Stage of Sepsis: Resolved Possible source of Sepsis: GI tract/intra-abdominal and Skin/soft tissue Sepsis Criteria: WBC count greater than 12,000 or less than 4000 FOLLOW UP Follow Up: Follow-up with your primary care provider. Follow-up with your oncologist. TIME SPENT Time Spent in Discharge (Minutes): 35 Discharge Plan Discharge Patient Disposition: 06 Home Health Service Condition: Stable Prescriptions: New nitrofurantoin macrocrystal 100 mg capsule 100 mg PO BID 4 Days Qty: 8 0RF Rx Instructions: must administer with a meal/food olanzapine [Zyprexa] 2.5 mg tablet 2.5 mg PO DAILY Qty: 14 0RF Continued ondansetron HCl 8 mg tablet 8 mg PO TID PRN (Reason: nausea and vomiting) Qty: 90 0RF prochlorperazine maleate [Compazine] 10 mg tablet 10 mg PO TID PRN (Reason: nausea and vomiting) Qty: 90 0RF Xarelto 20 mg tablet 20 mg PO QPM Rx Instructions: must administer with evening meal pantoprazole 40 mg Tablet,Delayed Release (Dr/Ec) 40 mg PO BIDAC 30 Days Qty: 60 0RF sucralfate 1 gram tablet 1 g PO QID Qty: 60 2RF escitalopram oxalate 20 mg tablet 20 mg PO DAILY latanoprost 0.005 % drops 1 drp ophthalmic (eye) DAILY digoxin 250 mcg (0.25 mg) tablet 250 mcg PO QDAY empagliflozin 10 mg tablet 10 mg PO QDAY Changed metoprolol tartrate 25 mg Tablet 25 mg PO BID 30 Days Qty: 30 0RF Activity Restrictions: Activity as Tolerated Diet: Regular Health Concerns: You came in because you were feeling unwell, tired, fatigued. You are found to have a fast heart rate, as well as a urinary tract infection. You completed 3 days of IV antibiotics for this. I want you to continue oral antibiotics on discharge, twice a day, for four more days. We increased the dose of one of your atrial fibrillation medications, your metoprolol, to 25 mg twice a day. We also talked about how you have a poor appetite, likely due to your current cancer treatment, and some mild nausea. I would like to trial you on Zyprexa, a very low dose. I am sending you home with 2 weeks worth. I would like you to follow-up with your primary care provider or your oncologist to see if any changes need to be made to this, or if it should be continued. We are glad you are feeling better, thank you for allowing us to care for you. Print Language: Divehi Patient Instructions: UTI Stand Alone Forms: PCP List Follow-up Care: RODRICK ANGELO MD [Primary Care Provider] -"
[2025-01-23] MEDS: POTASSIUM CHLORIDE 20 MEQ TABLET PO ONE (09:30)
== END 2025-01-23 14:35 | disposition home health service (06) | DRG 872 ==
LOC: ED 12:00 → ICU 01-21 09:42 → MS2 01-22 20:07
PROVIDERS: ADMIT Family Medicine Sports Medicine; ATTEND Family Medicine Sports Medicine
DX: N39.0 Urinary tract infection, site not specified; R53.1 Weakness; Z92.21 Personal history of antineoplastic chemotherapy; A41.9 Sepsis, unspecified organism; E87.6 Hypokalemia; C50.511 Malignant neoplasm of lower-outer quadrant of right female breast; E83.42 Hypomagnesemia; Z79.01 Long term (current) use of anticoagulants; R53.83 Other fatigue; I48.91 Unspecified atrial fibrillation; R19.7 Diarrhea, unspecified; K29.80 Duodenitis without bleeding; Z17.0 Estrogen receptor positive status [ER+]; Z79.899 Other long term (current) drug therapy; I82.412 Acute embolism and thrombosis of left femoral vein; K21.9 Gastro-esophageal reflux disease without esophagitis